=== PATIENT | male | born 1960 | race Caucasian/White ===

== ENCOUNTER 2017-08-06 10:16 | Emergency (ER) | payer MEDICARE ==
[~2017-08-06] VITALS: Ht 177.8 cm; Wt 131.5 kg
[~2017-08-06 10:16] MED LIST: ARIP10TA2 PO; CYCL10TA9 PO; OXYC-12 PO; SULF1TAB38 PO; TRAM50TA2 PO
--- OUTSIDE RECORDS SUMMARY | 2017-08-06 10:23 | XMS REPORT ---
Author Author ANH GTZ [facility] eClinicalWorks Address Unknown Phone Unavailable Care Team Providers Care Machine Operator Farmworker Name Role Phone ANH GTZ Unavailable Allergies No Known Allergies Problems Problem Type Condition Code Onset Dates Condition Status Problem Type 2 diabetes mellitus without complication, without long-term current use of insulin E11.9 Active Problem Essential hypertension I10 Active Problem Open wound, lower leg, left, initial encounter S81.802A Active Problem Bipolar disorder, current episode manic without psychotic features, moderate F31.12 Active Problem Other stimulant dependence, 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
--- OUTSIDE RECORDS SUMMARY | 2017-08-06 10:24 | XMS REPORT ---
Author Author KILEY Connelly Organization 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 Unknown Non Drug Allergy Feb, Unknown SOCIAL HISTORY No smoking Hx information available PLAN OF CARE Activity Details Follow Up prn Reason:te #31 VITAL SIGNS Height 71 in 2016-03-13 Blood pressure systolic 159 mmHg 2016-03-13 Blood pressure diastolic 86 mmHg 2016-03-13 MEDICATIONS Medication Instructions Dosage Frequency Start Date End Date Duration Status Amoxicillin 500 MG Orally 4 times a day 1 capsule 6h Feb, Feb, 7 days Active [place] 5-325 MG Orally every 6 hrs 1 tablet as needed 6h Feb, Feb, 4 days Active Latuda 40 MG Orally Once a day 1 tablet with food 24h Dec, Active Blood Glucose Test 1 subcutaneously 2 times a day as directed 12h Oct, 30 days Active Metformin HCl 1000 MG Orally Twice a day 1 tablet with meals 12h Sep, Active Lisinopril 20 mg Orally Once a day 1 tablet 24h 24 May, 2015 Active Hydrochlorothiazide 50 MG Orally Once a day 1 tablet 24h Active RESULTS No Results PROCEDURES Procedure Date Ordered Related Diagnosis Body Site LTD ORAL EVALUATION - PROBLEM FOCUS Mar 13, 2016 INTRAORL-PERIAPICAL 1 FILM [id number] Mar 13, 2016 Billing Notes on claim Mar 13, 2016 IMMUNIZATIONS No Known Immunizations
--- OUTSIDE RECORDS SUMMARY | 2017-08-06 10:24 | XMS REPORT ---
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 Active 608261485 Problem Venous insufficiency I87.2 Active 76681459 Problem Type 2 diabetes mellitus without complication, without long-term current use of insulin E11.9 Active 016662885 Problem Bipolar I disorder with depression F31.9 Active 53812885 Problem Methamphetamine use disorder, 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 646841585 Problem Open wound, lower leg, left, initial encounter S81.802A Active 322229357 Problem Essential hypertension I10 Active 86004560 Problem Mixed hyperlipidemia E78.2 Active 318373008 Problem Bipolar disorder, in partial remission, most recent episode depressed F31.75 Active 26401771 ALLERGIES No Information SOCIAL HISTORY Never Assessed PLAN OF CARE Activity Details Follow Up 4 Weeks Reason:depression VITAL SIGNS MEDICATIONS Unknown Medications RESULTS No Results PROCEDURES Procedure Date Ordered Result Body Site [facility] VISIT MENTAL HEALTH ESTAB PT June 12, 2016 Psychotherapy, patient &/family, 30 minutes, established patient June 12, 2016 IMMUNIZATIONS No Known Immunizations MEDICAL (GENERAL) HISTORY Type Description Date Medical History Bipolar disorder, current episode manic without psychotic features, moderate Medical History Essential hypertension, hypertension with unspecified goal Medical History diabetes Medical History hypercholesterolemia Surgical History Hernia repair 03/2014 Surgical History Oral Surgery 06/2014 Hospitalization History early 1999 he had inpatient stay at [facility] when he was experiencing SI
--- OUTSIDE RECORDS SUMMARY | 2017-08-06 10:24 | XMS REPORT ---
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
--- OUTSIDE RECORDS SUMMARY | 2017-08-06 10:24 | XMS REPORT ---
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 Active 415531947 Problem Type 2 diabetes mellitus without complication, without long-term current use of insulin E11.9 Active 802471448 Problem Amphetamine use disorder, 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 11535697 Problem PVD (peripheral vascular disease) I73.9 Active 919287520 Problem Mixed hyperlipidemia E78.2 Active 603699191 Problem Bipolar disorder, in partial remission, most recent episode depressed F31.75 Active 05135210 Problem Bipolar I disorder with depression F31.9 Active 72505609 Problem Methamphetamine use disorder, 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 804822715 ALLERGIES No Information ENCOUNTERS Encounter Location Date Diagnosis [place] [id number] [place] [address] 71128- 2811 July, [place] [address] [place] [id number] [place] [address] 72999- 0735 July, [place] [id number] [place] [address] 36632- 2704 May, Bipolar I disorder with depression F31.9 and Amphetamine use disorder, 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 [place] [id number] [place] [address] 87550- 9635 May, Bipolar I disorder with depression F31.9 and Amphetamine use disorder, 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 [place] [address] [place] [id number] [address] 9925 May, [place] [address] [place] [id number] [place] [address] 51577- 8820 May, BMI 40.0-44.9, adult Z68.41 ; Methamphetamine use disorder, 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 and Bipolar I disorder with depression F31.9 [place] [address] [place] [id number] [place] [address] 55674- 1225 Mar, [place] [address] [place] [id number] [place] [address] 15593- 5326 Mar, Methamphetamine use disorder, 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 and Bipolar I disorder with depression F31.9 [place] [address] [place] [id number] [place] [address] 30625- 6820 Mar, Methamphetamine use disorder, 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 ; Bipolar I disorder with depression F31.9 and BMI 40.0-44.9, adult Z68.41 [place] [id number] [place] [address] 97366- 3960 Mar, [facility] [address] [place] [id number] [place] [address] 55483 -2518 Feb, Cough R05 ; Other viral agents as the cause of diseases classified elsewhere B97.89 ; Acute upper respiratory infection, unspecified J06.9 and BMI 40.0-44.9, adult Z68.41 [place] [id number] [place] [address] 50177- 7800 Feb, [place] [id number] [place] [address] 44511- 4242 Feb, Methamphetamine use disorder, 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 and Bipolar I disorder with depression F31.9 [place] [address] [place] [id number] [place] [address] 71651- 1894 Feb, Methamphetamine use disorder, 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 ; Bipolar I disorder with depression F31.9 and BMI 40.0-44.9, adult Z68.41 [place] [address] [place] [id number] [place] [address] 51154- 8745 Feb, [place] [address] 30198- 9833 Jan, Type 2 diabetes mellitus without complication, without long- term current use of insulin E11.9 [facility] WALK [facility] [place] [address] 46958 -1288 Jan, BMI 40.0-44.9, adult Z68.41 and Open wound of left lower leg, subsequent encounter S81.802D [facility] WALK IN [address] [address] 16 Jan, 2017 Abrasion T14.8XXA ; Encounter for immunization Z23 and PVD (peripheral vascular disease) I73.[address] [address]84- 2578 15 Jan, 2017 [place] [address] 57230- 8756 Jan, [place] [address] 32262- 9577 07 Jan, 2017 Bipolar I disorder with depression F31.9 and Other stimulant dependence, 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 [place] [address] [place] [id number] [place] [address] 45383- 8101 2016 Type 2 diabetes mellitus without complication, without long- term current use of insulin E11.9 and Essential hypertension I10 [place] [address] [place] [id number] [place] [address] 59315- 9760 28 Nov, 2016 Methamphetamine use disorder, 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 and Bipolar I disorder with depression F31.9 [place] [address] 11516- 5586 26 Nov, 2016 Bipolar I disorder with depression F31.9 and Other stimulant dependence, 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 [facility]ALK IN [facility] [address] 24982 -1094 14 Nov, 2016 Bilateral impacted cerumen H61.23 [facility] [id number] [place] [address] 39923- 8343 12 Nov, 2016 Bipolar I disorder with depression F31.9 and Other stimulant dependence, 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 [facility] [id number] [place] [address] 67178- 1189 Nov, [facility] [address] [place] [id number] [place] [address] 33444- 7182 Nov, [facility] [id number] [place] [address] 22736- 2111 Oct, Bipolar I disorder with depression F31.9 and Adderall use disorder, moderate, dependence F15.20 [facility] [address] [place] [id number] [place] [address] 45180- 5397 Oct, Bipolar I disorder with depression F31.9 and Methamphetamine use disorder, 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 [facility] [address] [place] [id number] [place] [address] 30201- 8960 Oct, [facility] [address] [place] [id number] [place] [address] 76002- 1126 Sep, [facility] [id number] [place] [address] 75757- 8059 Sep, Bipolar I disorder with depression F31.9 [facility] [id number] [place] [address] 89764- 9921 Sep, Bipolar I disorder with depression F31.9 and Methamphetamine use disorder, 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 [facility] [address] [place] [id number] [address]- 1337 Sep, Bipolar I disorder with depression F31.9 and Other stimulant dependence, 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 [facility] [id number] [place] [address] 68691- 0978 Sep, [facility] [address] [place] [id number] [place] [address] 99868- 8303 Sep, [facility] [id number] [place] [address] 66023- 4975 Sep, Tick bite, initial encounter W57.XXXA [facility] [address] [place] [id number] [place] [address] 03368- 2454 Aug, [facility] [address] [place] [id number] [place] [address] 38251- 2603 Aug, [facility] [address] 46436- 3280 Aug, Bipolar I disorder with depression F31.9 and Other stimulant dependence, 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 [facility] [address] [place] [address] Aug, [facility] [address] 91304- 7803 Aug, [facility] [address] [place] [address] Aug, [facility] [address] [place] [id number] [place] [address] 35878- 4317 Aug, [place] [address] [place] [id number] [place] [address] 57865- 3226 Aug, Elevated glucose R73.09 ; Type 2 diabetes mellitus without complication, without long-term current use of insulin E11.9 ; Periumbilical abdominal pain R10.33 and Mixed hyperlipidemia E78.2 [facility] [address] [place] [id number] [place] [address] 02196 -5121 Aug, Periumbilical abdominal pain R10.33 and Tick bite, initial encounter W57.XXXA [place] [address] 18628- 5264 Aug, Bipolar I disorder with depression F31.9 [facility] [address] [place] [id number] [place] [address] 22018- 9747 July, Bipolar I disorder with depression F31.9 and Other stimulant dependence, 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 [place] [address] [place] [id number] [address]- 6209 July, [facility] [address] [place] [address] July, [facility] [address] [address]- 7647 July, [facility] [address] [address]- 3270 Jun, Bipolar I disorder with depression F31.9 [facility] [address] [address]- 1311 Jun, Elevated glucose R73.09 and Other nursing home (current) drug therapy Z79.899 [facility] [address] [address]- 4246 Jun, Bipolar I disorder with depression F31.9 and Other long term care pharmacist (current) drug therapy Z79.899 [facility] [address] [address]- 7591 Jun, [facility] [address] [address]- 7114 Jun, Bipolar disorder, in partial remission, most recent episode depressed F31.75 and Other stimulant dependence, 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 [facility] [place] [id number] [address] Jun [facility] [address] [place] [id number] [address] May, Other viral agents as the cause of diseases classified elsewhere B97.89 and Acute upper respiratory infection, unspecified J06.9 [facility] [address] [place] [id number] [address]- 9519 May, Bipolar disorder, in partial remission, most recent episode depressed F31.75 and Other stimulant dependence, 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 [facility] [address] [place] [id number] [address]- 8880 May, Bipolar 1 disorder, mixed, full remission F31.78 and Methamphetamine abuse in remission F15.10 [place] [address] [address]- 8434 Feb, Bipolar affective disorder, remission status unspecified F31.9 [facility] [place][note 2] JEFFREY URBINA [id number] [place] [address] Feb [place] [id number] [place] [address] 38523- 8460 Feb, Dental examination Z01.20 [place] [id number] [place] [address] 96778- 0360 16 Jan, 2016 Bipolar 1 disorder, depressed, partial remission F31.75 [place] [id number] [place] [address] 80353- 8289 12 Dec, 2015 Bipolar 1 disorder, mixed, full remission F31.78 and Other long term care pharmacist (current) drug therapy Z79.899 [place] [id number] [place] [address] 74443- 3986 Dec, Bipolar 1 disorder, mixed, full remission F31.78 and Other nursing home (current) drug therapy Z79.899 [place] [id number] [place] [address] 61881- 6615 Oct, [place] [id number] [place] [address] 46707- 2273 Oct, Type 2 diabetes mellitus without complication, without long- term current use of insulin E11.9 ; Bipolar disorder, current episode manic without psychotic features, moderate F31.12 ; Essential hypertension I10 ; Venous insufficiency I87.2 and Open wound, lower leg, left, initial encounter S81.802A [place] [id number] [place] [address] 02771- 5780 Oct, [place] [id number] [place] [address] 61176- 4509 Oct, Bipolar affective disorder, remission status unspecified F31.9 [place] [id number] [place] [address] 33437- 3985 Oct, [facility] [address] [place] [id number] [place] [address] 32973- 7541 Sep, [facility] [address] [place] [id number] [place] [address] 76997- 5724 Sep, [place] [address] [place] [id number] [place] [address] 11723- 8432 Sep, Type 2 diabetes mellitus without complication, without long- term current use of insulin E11.9 ; Essential hypertension I10 and Venous insufficiency I87.2 [facility] [place] [address] [place] [id number] [place] [address] 93823 -0527 Sep, Cellulitis of lower extremity, unspecified laterality L03.119 and Peripheral vascular disease of lower extremity I73.9 [place] [address] [place] [id number] [place] [address] 85020- 5890 Aug, [place] [address] [place] [id number] [place] [address] 77323- 5432 Aug, Bipolar affective disorder, remission status unspecified F31.9 [facility] [place] [address] [place] [id number] [place] [address] 51332 -6988 July, Cellulitis, unspecified cellulitis site L03.90 [place] [address] [place] [id number] [place] [address] 06095- 7781 Jun, Bipolar disorder, current episode manic without psychotic features, moderate F31.12 and Other stimulant dependence, 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 [place] [address] [place] [id number] [place] [address] 47782- 0178 Jun, Essential hypertension, hypertension with unspecified goal I10 and Knee pain M25.569 [place] [address] [place] [id number] [place] [address] 03351- 8706 May, [place] [address] [place] [id number] [place] [address] 86173- 6168 May, Bipolar disorder, current episode manic without psychotic features, moderate F31.12 and Essential hypertension, hypertension with unspecified goal I10 [facility] [address] [place] [id number] [place] [address] 01090- 0216 May, Bipolar disorder, current episode manic without psychotic features, moderate F31.12 and Other stimulant dependence, 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 [facility] [address] [place] [id number] [place] [address] 69931- 9370 Dec, [facility] [address] [place] [id number] [place] [address] 97630- 4200 Dec, Bipolar 1 disorder, mixed, full remission F31.78 [facility] [address] [place] [id number] [place] [address] 01889- 5113 Jun, [facility] [address] [place] [id number] [place] [address] 89995- 1692 Jun, [facility] [address] [place] [id number] [place] [address] 62114- 3892 May, [facility] [address] [place] [id number] [place] [address] 56332- 9058 May, [facility] [address] [place] [id number] [place] [address] 13597- 7676 May, [facility] [address] [place] [id number] [place] [address] 50189- 7049 May, [facility] [address] [place] [id number] [place] [address] 01873- 0316 May, [facility] [address] [place] [id number] [place] [address] 05778- 6180 May, [facility] [address] [place] [id number] [place] [address] 10762- 8960 Mar, [facility] [address] [place] [id number] [place] [address] 69562- 1682 Mar, [facility] [address] [place] [id number] [place] [address] 54296- 1176 Feb, [facility] [place] [facility] [address] [id number] [place] [address]- 7610 Jan, [facility] [place] [facility] [address] [id number] [place] [address]- 4426 Jan, [facility] [place] [facility] [address] [id number] [place] [address]- 1060 Jan, [facility] [place] [facility] [address] [id number] [place] [address]- 2031 Jan, [facility] [place] [facility] [address] [id number] [place] [address]- 9202 Nov, [facility] [place] [facility] [address] [id number] [place] [address]- 2583 Nov, [facility] [place] [facility] [address] [id number] [place] [address]- 8786 Oct, [facility] [place] [facility] [address] [id number] [place] [address]- 3246 Oct, [facility] [place] [facility] [address] [id number] [place] [address]- 7868 Sep, [facility] [place] [facility] [address] [id number] [place] [address]- 3315 Sep, [facility] [place] [facility] [address] [id number] [place] [address]- 6937 Sep, [facility] [place] [facility] [address] [id number] [place] [address]- 2196 Sep, [facility] [place] [facility] [address] [id number] [place] [address]- 2279 July, [facility] [place] [facility] [address] [id number] [place] [address]- 6211 July, [facility] [place] [facility] [address] [id number] [place] [address]- 3974 July, [facility] [place] [facility] [address] [id number] [place] [address]- 8008 July, [facility] [place] [facility] [address] [id number] [place] [address]- 6497 July, [facility] [place] [facility] [address] [id number] [place] [address]- 6933 July, [facility] [place] [facility] [address] [id number] [place] [address]- 4074 July, [facility] [place] [facility] [address] [id number] [place] [address]- 7041 July, [facility] [place] [facility] [address] [id number] [place] [address]- 1845 Jun, [facility] [place] [facility] [address] [id number] [place] [address]- 7769 Jun, [facility] [place] [facility] [address] [id number] [place] [address]- 2923 Jun, [facility] [place] [facility] [address] [id number] [place] [address]- 5249 Jun, [facility] [place] [facility] [address] [id number] [place] [address]- 0002 May, [facility] [place] [facility] [address] [id number] [place] [address]- 8700 May, [facility] [place] [facility] [address] [id number] [place] [address]- 9345 May, [facility] [place] [facility] [address] [id number] [place] [address]- 8884 May, [facility] [place] [facility] [address] [id number] [place] [address]- 1103 May, [facility] [place] [facility] [address] [id number] [place] [address]- 9699 May, [facility] [place] [facility] [address] [id number] [place] [address]- 5972 May, [facility] [address] [id number] [place] [address]- 9643 May, [facility] [place] [facility] [address] [id number] [place] 4616 May, [facility] [place] [facility] [address] [id number] [place] [address]- 5066 May, [facility] [place] [facility] [address] [id number] [place] [address]- 3078 May, [facility] [place] [facility] [address] [id number] [place] [address]- 8567 Mar, [facility] [place] [facility] [address] [id number] [place] [address]- 1658 Mar, [facility] [address] [id number] [place] [address]- 8097 Mar, [facility] [place] [facility] [address] [id number] [place] [address]- 6117 Mar, [facility] [place] [facility] [address] [id number] [place] [address]- 6627 Feb, [facility] [place] [facility] [address] [id number] [place] [address]- 8022 Feb, [facility] [place] [facility] [address] [id number] [place] [address]- 7352 Feb, [facility] [place] [facility] [address] [id number] [place] [address]- 0019 Feb, [facility] [place] [facility] [address] [id number] [place] [address]- 1933 Jan, [facility] [place] [facility] [address] [id number] [place] [address]- 0563 Jan, [facility] [place] [facility] [address] [id number] [place] [address]- 9143 Jan, [facility] [place] [facility] [id number] [address]- 8398 Jan, [facility] [id number] [address]- 2398 Mar, [facility] [address] [address]- 8826 Mar, [facility] [id number] [address]- 0744 Feb, [facility] [address] [address]- 6085 Jan, [facility] [address] [address]- 9000 Dec, [facility] [address] [address]- 4366 Nov, [facility] [address] [address]- 3908 Oct, [facility] [id number] [address]- 5973 Sep, [facility] [id number] [address] Feb, IMMUNIZATIONS No Known Immunizations SOCIAL HISTORY Never Assessed REASON FOR VISIT Requests return call PLAN OF CARE VITAL SIGNS MEDICATIONS Unknown Medications RESULTS No Results PROCEDURES No Known procedures INSTRUCTIONS MEDICATIONS ADMINISTERED No Known Medications MEDICAL (GENERAL) HISTORY Type Description Date Medical History Bipolar disorder, current episode manic without psychotic features, moderate Medical History Essential hypertension, hypertension with unspecified goal Medical History diabetes Medical History hypercholesterolemia Surgical History Hernia repair 03/2014 Surgical History Oral Surgery 06/2014 Hospitalization History early 1999 he had inpatient stay at [facility] when he was experiencing SI
--- OUTSIDE RECORDS SUMMARY | 2017-08-06 10:25 | XMS REPORT ---
Author Author CHIARA RODRIGUEZ [facility] eClinicalWorks Address Unknown Phone Unavailable Care Team Providers Care Vermin Exterminator Name Role Phone CHIARA RODRIGUEZ CP Unavailable [...]
--- OUTSIDE RECORDS SUMMARY | 2017-08-06 10:25 | XMS REPORT ---
Author Author RAUL GIL [facility] eClinicalWorks Address Unknown Phone Unavailable Care Team Providers Care Swing Type Lathe Operator Name Role Phone RAUL GIL CP Unavailable Allergies, Adverse Reactions, Alerts Substance Reaction Event Type N.K.D.A. Info Not Available Non Drug Allergy Problems Problem Type Condition Code Onset Dates Condition Status Problem Bipolar affective disorder, remission status unspecified F31.9 Active Problem Essential hypertension, hypertension with unspecified goal I10 Active Problem Peripheral vascular disease of lower extremity I73.9 Active Assessment Cellulitis of lower extremity, unspecified laterality L03.119 Active Assessment Peripheral vascular disease of lower extremity I73.9 Active Problem Bipolar disorder, current episode manic without psychotic features, moderate F31.12 Active Problem Other stimulant dependence, 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 Active Medications Medication Code System Code Instructions Start Date End Date Status Dosage Keflex [facility] [address]-01 500 MG Orally every 6 hrs October 12, 2015 October 22, 2015 1 capsule Latuda [facility] [address]-55 40 MG Orally Once a day Dec 29, 2014 1 tablet with food Procedures Procedure Coding System Code Date Office Visit, Est Pt., Level 3 CPT-4 70347 October 12, 2015 [facility] VISIT ESTABLISHED PATIENT CPT-4 G0467 October 12, 2015 Vital Signs Date/Time: October 12, 2015 Cardiac Monitoring Heart Rate 72 bpm Weight 310.6 lbs Height 71 in Blood Pressure Diastolic 78 mmHg Blood Pressure Systolic 140 mmHg Results No Known Results Summary Purpose eClinicalWorks Submission
--- OUTSIDE RECORDS SUMMARY | 2017-08-06 10:25 | XMS REPORT ---
Author Author CHIARA RODRIGUEZ [facility] [place] eClinicalWorks Address Unknown Phone Unavailable Care Team Providers Care Foster Care Case Manager Name Role Phone CHIARA RODRIGUEZ CP Unavailable [...] without psychotic features, moderate F31.12 Active Medications Medication Code System Code Instructions Start Date End Date Status Dosage Latuda [facility] [address]-20 40 MG Orally Once a day Dec 29, 2014 1 tablet with food Results No Known Results Summary Purpose eClinicalWorks Submission
--- OUTSIDE RECORDS SUMMARY | 2017-08-06 10:25 | XMS REPORT ---
Author Author CHIARA RODRIGEUZ [facility] eClinicalWorks Address Unknown Phone Unavailable Care Team Providers Care Stockroom Keeper Name Role Phone CHIARA RODRIGUEZ CP Unavailable Allergies, Adverse Reactions, Alerts Substance Reaction Event Type N.K.D.A. 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 Active Assessment Type 2 diabetes mellitus without complication, without long-term current use of insulin E11.9 Active Problem Bipolar affective disorder, remission status unspecified F31.9 Active Problem Bipolar disorder, current episode manic without psychotic features, moderate F31.12 Active Medications Medication Code System Code Instructions Start Date End Date Status Dosage Lisinopril [facility] [address]-80 20 mg Orally Once a day June 22, 2015 1 tablet Abilify [facility] [address]-44 15 MG Orally Once a day 1 tablet Metformin HCl [facility] [address]-33 1000 MG Orally Twice a day October 20, 2015 1 tablet with meals Keflex [facility] [address]-26 500 MG Orally every 6 hrs October 12, 2015 October 22, 2015 1 capsule Latuda [facility] [address]-11 40 MG Orally Once a day Dec 29, 2014 1 tablet with food Hydrochlorothiazide [facility] [address]-07 50 MG Orally Once a day 1 tablet Procedures Procedure Coding System Code Date [facility] VISIT ESTABLISHED PATIENT CPT-4 G0467 October 20, 2015 Office Visit, Est Pt., Level 4 CPT-4 31611 October 20, 2015 GLYCATED HEMOGLOBIN TEST CPT-4 34300 October 20, 2015 Vital Signs Date/Time: October 20, 2015 Cardiac Monitoring Heart Rate 109 bpm Weight 309.2 lbs Height 71 in Blood Pressure Diastolic 90 mmHg Blood Pressure Systolic 190 mmHg Results No Known Results Summary Purpose eClinicalWorks Submission
--- OUTSIDE RECORDS SUMMARY | 2017-08-06 10:25 | XMS REPORT ---
Author Author APOLLO SANTIAGO Organization eClinicalWorks Address Unknown Phone Unavailable Care Team Providers Care Business Excellence Manager Name Role Phone APOLLO SANTIAGO CP Unavailable Allergies, Adverse Reactions, Alerts Substance Reaction Event Type N.K.D.A. Info Not Available Non Drug Allergy Problems Problem Type Condition Code Onset Dates Condition Status Assessment Bipolar 1 disorder, mixed, full remission F31.78 Active Assessment Other [facility] (current) drug therapy Z79.899 Active Problem Type 2 diabetes mellitus without [...] Start Date End Date Status Dosage Lisinopril [facility] [address]-84 20 mg Orally Once a day June 22, 2015 1 tablet Metformin HCl [facility] [address]-59 1000 MG Orally Twice a day October 20, 2015 1 tablet with meals Blood Glucose Test [facility] 0 1 subcutaneously 2 times a day Nov 15, 2015 as directed Hydrochlorothiazide [facility] [address]-41 50 MG Orally Once a day 1 tablet Latuda [facility] [address]-84 40 MG Orally Once a day Dec 29, 2014 1 tablet with food Procedures Procedure Coding System Code Date Office Visit, Est Pt., Level 3 CPT-4 80474 Jan 09, 2016 [facility] VISIT ESTABLISHED PATIENT CPT-4 G0467 Jan 09, 2016 Vital Signs Date/Time: Jan 09, 2016 Cardiac Monitoring Heart Rate 100 bpm Weight 300.8 lbs Height 71 in BMI 41.95 Index Blood Pressure Diastolic 80 mmHg Blood Pressure Systolic 160 mmHg Results No Known Results Summary Purpose eClinicalWorks Submission
--- OUTSIDE RECORDS SUMMARY | 2017-08-06 10:25 | XMS REPORT ---
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 Active 919858893 Problem Type 2 diabetes mellitus without complication, without long-term current use of insulin E11.9 Active 315355447 Problem Amphetamine use disorder, 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 06115287 Problem PVD (peripheral vascular disease) I73.9 Active 958634458 Problem Mixed hyperlipidemia E78.2 Active 755794370 Problem Bipolar disorder, in partial remission, most recent episode depressed F31.75 Active 96437498 Problem Bipolar I disorder with depression F31.9 Active 61047905 Problem Methamphetamine use disorder, 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 773362110 ALLERGIES No Known Allergies ENCOUNTERS Encounter Location Date Diagnosis [facility] [id number] [place] [address] 10240- 3592 July, [facility] [id number] [place] [address] 10297- 0518 July, Bipolar I disorder with depression F31.9 and Amphetamine use disorder, 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 [facility] [id number] [place] [address] 83247 -3559 July, [facility] [id number] [place] [address] 31565 -3018 Jun, Seasonal allergic rhinitis, unspecified trigger J30.2 and BMI 40.0-44.9, adult Z68.41 [place] [address] [place] [address] 77636- 2780 May, Bipolar I disorder with depression F31.9 and Amphetamine use disorder, 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 [place] [id number] [place] [address] 86671- 3070 May, Bipolar I disorder with depression F31.9 and Amphetamine use disorder, 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 [place] [id number] [place] [address] 23663- 6635 May, [place] [id number] [place] [address] 10850- 0167 14 May, 2017 BMI 40.0-44.9, adult Z68.41 ; Methamphetamine use disorder, 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 and Bipolar I disorder with depression F31.9 [place] [id number] [place] [address] 53736- 7934 Mar, [place] [id number] [place] [address] 41647- 9974 Mar, Methamphetamine use disorder, 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 and Bipolar I disorder with depression F31.9 [place] [id number] [place] [address] 08456- 0682 Mar, Methamphetamine use disorder, 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 ; Bipolar I disorder with depression F31.9 and BMI 40.0-44.9, adult Z68.41 [place] [id number] [place] [address] 13463- 2354 Mar, [facility] [address] [place] [address] 57546 -3459 Feb, Cough R05 ; Other viral agents as the cause of diseases classified elsewhere B97.89 ; Acute upper respiratory infection, unspecified J06.9 and BMI 40.0-44.9, adult Z68.41 [place] [address] [place] [address] 20025- 0546 Feb, [place] [id number] [place] [address] 88476- 7587 14 Feb, 2017 Methamphetamine use disorder, 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 and Bipolar I disorder with depression F31.9 [place] [address] [place] 0[address]17- 1012 14 Feb, 2017 Methamphetamine use disorder, 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 ; Bipolar I disorder with depression F31.9 and BMI 40.0-44.9, adult Z68.41 [place] [address] 05408- 8573 Feb, [address] 075152- 0078 Jan, Type 2 diabetes mellitus without complication, without long- term current use of insulin E11.9 [facility] [address] [address]0231 Jan, BMI 40.0-44.9, adult Z68.41 and Open wound of left lower leg, subsequent encounter S81.802D [facility] [address] 0[address] -1221 16 Jan, 2017 Abrasion T14.8XXA ; Encounter for immunization Z23 and PVD (peripheral vascular disease) I73.[address] 53078- 5508 15 Jan, [address] 88065- 1740 Jan, [address] 19925- 7526 Jan, Bipolar I disorder with depression F31.9 and Other stimulant dependence, 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 87691- 4785 2016 Type 2 diabetes mellitus without complication, without long- term current use of insulin E11.9 and Essential hypertension I10 [address] [place] [address]- 7673 Nov, Methamphetamine use disorder, 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 and Bipolar I disorder with depression F31.9 [facility] [id number] [place] [address] 86255- 0992 Nov, Bipolar I disorder with depression F31.9 and Other stimulant dependence, 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 [facility] [id number] [place] [address] 83472 -2684 14 Nov, 2016 Bilateral impacted cerumen H61.23 [facility] [id number] [place] [address] 80664- 7275 12 Nov, 2016 Bipolar I disorder with depression F31.9 and Other stimulant dependence, 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 [facility] [id number] [place] [address] 19994- 9090 Nov, [facility] [id number] [place] [address] 46043- 2066 Nov, [facility] [id number] [place] [address] 01669- 8595 Oct, Bipolar I disorder with depression F31.9 and Adderall use disorder, moderate, dependence F15.20 [facility] [address] [place] [address] 24882- 2913 Oct, Bipolar I disorder with depression F31.9 and Methamphetamine use disorder, 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 [facility] [id number] [place] [address] 32233- 3089 Oct, [facility] [id number] [place] [address] 12487- 0887 Sep, [facility] [id number] [place] [address] 77194- 6075 Sep, Bipolar I disorder with depression F31.9 [facility] [address] [place] [address] 10951- 4154 Sep, Bipolar I disorder with depression F31.9 and Methamphetamine use disorder, 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 [facility] [id number] [place] [address] 22217- 9358 Sep, Bipolar I disorder with depression F31.9 and Other stimulant dependence, 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 [facility] [id number] [place] [address] 36625- 7923 Sep, [facility] [address] 05202- 6355 Sep, [facility] [id number] [place] [address] 66618- 6150 Sep, Tick bite, initial encounter W57.XXXA [place] [address] 95814- 2277 Aug, [place] [address] 50685- 5800 Aug, [facility] [address] 14604- 8459 Aug, Bipolar I disorder with depression F31.9 and Other stimulant dependence, 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 [facility] [address] [place] [address] Aug, [facility] [id number] [place] [address] 85892- 1614 Aug, [facility] [address] [place] [address] Aug, [facility] [id number] [place] [address] 70244- 1771 Aug, [facility] [id number] [place] [address] 55330- 0383 Aug, Elevated glucose R73.09 ; Type 2 diabetes mellitus without complication, without long-term current use of insulin E11.9 ; Periumbilical abdominal pain R10.33 and Mixed hyperlipidemia E78.2 [facility] [id number] [place] [address] 00498 -4697 08 Fantasma, 2017 Periumbilical abdominal pain R10.33 and Tick bite, initial encounter W57.XXXA [facility] [address] [address]- 4753 Aug, Bipolar I disorder with depression F31.9 [facility] [address] [address]- 1517 July, Bipolar I disorder with depression F31.9 and Other stimulant dependence, 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 [facility] [address] [place] [address] 26023- 7521 July, [facility] [address] [place] [address] July, [facility] [id number] [place] [address] 83409- 0370 July, [facility] [id number] [place] [address] 21391- 3732 Jun, Bipolar I disorder with depression F31.9 [facility] [address] [address]- 9508 Jun, Elevated glucose R73.09 and Other terminal make up operator (current) drug therapy Z79.899 [facility] [address] [place] [address] 47343- 3842 Jun, Bipolar I disorder with depression F31.9 and Other terminal make up operator (current) drug therapy Z79.899 [facility] [address] [address]- 7055 Jun, [facility] [address] [address]- 4121 Jun, Bipolar disorder, in partial remission, most recent episode depressed F31.75 and Other stimulant dependence, 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 [facility] [address] [id number] [place] [address] Jun [facility] [address] [address] -7[address] May, Other viral agents as the cause of diseases classified elsewhere B97.89 and Acute upper respiratory infection, unspecified J06.9 [place] [address] [address]- 7219 15 May, 2016 Bipolar disorder, in partial remission, most recent episode depressed F31.75 and Other stimulant dependence, 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 [place] [address] [address]- 9236 02 May, 2016 Bipolar 1 disorder, mixed, full remission F31.78 and Methamphetamine abuse in remission F15.10 [place] [address] [address]- 1119 Feb, Bipolar affective disorder, remission status unspecified F31.9 [place] [address] [id number] [place] [address] 14 Feb [place] [address] [address]- 9734 14 Feb, 2016 Dental examination Z01.20 [place] [address] [address]- 1587 16 Jan, 2016 Bipolar 1 disorder, depressed, partial remission F31.75 [place] [address] [place] [address] 84427- 9067 12 Dec, 2015 Bipolar 1 disorder, mixed, full remission F31.78 and Other fpc (current) drug therapy Z79.899 [place] [address] [address]- 4078 Dec, Bipolar 1 disorder, mixed, full remission F31.78 and Other fpc (current) drug therapy Z79.899 [place] [address] [address]- 1882 Oct, [place] [address] [place] [address] 42155- 2731 Oct, Type 2 diabetes mellitus without complication, without long- term current use of insulin E11.9 ; Bipolar disorder, current episode manic without psychotic features, moderate F31.12 ; Essential hypertension I10 ; Venous insufficiency I87.2 and Open wound, lower leg, left, initial encounter S81.802A [place] [id number] [place] [address] 63825- 3848 Oct, [place] [id number] [place] [address] 63822- 0475 Oct, Bipolar affective disorder, remission status unspecified F31.9 [place] [id number] [place] [address] 87992- 6608 Oct, [place] [id number] [place] [address] 99547- 6741 Sep, [place] [id number] [place] [address] 07907- 6226 Sep, [place] [id number] [place] [address] 10687- 7299 Sep, Type 2 diabetes mellitus without complication, without long- term current use of insulin E11.9 ; Essential hypertension I10 and Venous insufficiency I87.2 [facility] [id number] [place] [address] 28983 -8286 Sep, Cellulitis of lower extremity, unspecified laterality L03.119 and Peripheral vascular disease of lower extremity I73.9 [place] [id number] [place] [address] 98393- 6631 Aug, [place] [id number] [place] [address] 69547- 2516 Aug, Bipolar affective disorder, remission status unspecified F31.9 [facility] [id number] [place] [address] 16653 -3697 July, Cellulitis, unspecified cellulitis site L03.90 [place] [id number] [place] [address] 07709- 4949 Jun, Bipolar disorder, current episode manic without psychotic features, moderate F31.12 and Other stimulant dependence, 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 [facility] [address] [address]- 0834 12 Jun, 2015 Essential hypertension, hypertension with unspecified goal I10 and Knee pain M25.569 [facility] [id number] [place] [address] 49693- 2114 May, [facility] [id number] [place] [address] 57125- 7173 May, Bipolar disorder, current episode manic without psychotic features, moderate F31.12 and Essential hypertension, hypertension with unspecified goal I10 [facility] [id number] [place] [address] 58950- 8943 May, Bipolar disorder, current episode manic without psychotic features, moderate F31.12 and Other stimulant dependence, 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 [facility] [id number] [place] [address] 33866- 9796 Dec, [facility] [id number] [place] [address] 70658- 6736 Dec, Bipolar 1 disorder, mixed, full remission F31.78 [facility] [id number] [place] [address] 65198- 8113 Jun, [facility] [address] [place] [address] 69342- 8683 Jun, [facility] [address] [place] [address] 29140- 6612 May, [facility] [id number] [place] [address] 84419- 5118 May, [facility] [id number] [place] [address] 25740- 2226 May, [facility] [id number] [place] [address] 09352- 0547 May, [facility] [address] [place] [address] 89826- 4476 May, [facility] [place] [facility] [address] [id number] [place] [address]- 1698 May, [facility] [place] [facility] [address] [id number] [place] [address]- 4852 Mar, [facility] [place] [facility] [address] [id number] [place] 3838 Mar, [facility] [place] [facility] [address] [id number] [place] [address]- 1400 Feb, [facility] [place] [facility] [address] [id number] [place] [address]- 1874 Jan, [facility] [place] [facility] [address] [id number] [place] [address]- 4180 Jan, [facility] [place] [facility] [address] [id number] [place] [address]- 9167 Jan, [facility] [place] [facility] [address] [id number] [place] [address]- 4353 Jan, [facility] [place] [facility] [address] [id number] [place] [address]- 7733 Nov, [facility] [place] [facility] [address] [id number] [place] [address]- 8735 Nov, [facility] [place] [facility] [address] [id number] [place] [address]- 2274 Oct, [facility] [place] [facility] [address] [id number] [place] [address]- 2392 Oct, [facility] [place] [facility] [address] [id number] [place] [address]- 5208 Sep, [facility] [place] [facility] [address] [id number] [place] [address]- 2737 Sep, [facility] [place] [facility] [address] [id number] [place] [address]- 0188 Sep, [facility] [place] [facility] [address] [id number] [place] [address]- 6649 Sep, [facility] [place] [facility] [address] [id number] [place] [address]- 7869 July, [facility] [place] [facility] [address] [id number] [place] [address]- 4110 July, [facility] [place] [facility] [address] [id number] [place] [address]- 7619 July, [facility] [place] [facility] [address] [id number] [place] [address]- 0575 July, [facility] [place] [facility] [address] [id number] [place] [address]- 6388 July, [facility] [place] [facility] [address] [id number] [place] [address]- 4163 July, [facility] [place] [facility] [address] [id number] [place] [address]- 1216 July, [facility] [place] [facility] [address] [id number] [place] [address]- 6529 July, [facility] [place] [facility] [address] [id number] [place] [address]- 6425 Jun, [facility] [place] [facility] [address] [id number] [place] [address]- 1784 Jun, [facility] [place] [facility] [address] [id number] [place] [address]- 1882 Jun, [facility] [place] [facility] [address] [id number] [place] [address]- 7768 Jun, [facility] [place] [facility] [address] [id number] [place] [address]- 6067 May, [facility] [place] [facility] [address] [id number] [place] [address]- 1357 May, [facility] [place] [facility] [address] [id number] [place] [address]- 9074 May, [facility] [place] [facility] [address] [id number] [place] [address]- 8729 May, [facility] [place] [facility] [address] [id number] [place] [address]- 6626 May, [facility] [place] [facility] [address] [id number] [place] [address]- 2796 May, [facility] [place] [facility] [address] [id number] [place] [address]- 9846 May, [facility] [place] [facility] [address] [id number] [place] [address]- 3506 May, [facility] [place] [facility] [address] [id number] [place] [address]- 8966 May, [facility] [place] [facility] [address] [id number] [place] [address]- 8903 May, [facility] [place] [facility] [address] [id number] [place] [address]- 1167 May, [facility] [place] [facility] [address] [id number] [place] [address]- 6945 Mar, [facility] [place] [facility] [address] [facility] [id number] [place] [address]- 2180 Mar, [facility] [place] [facility] [address] [id number] [place] [address]- 8771 Mar, [facility] [place] [facility] [address] [id number] [place] [address]- 7067 Mar, [facility] [place] [facility] [address] [id number] [place] [address]- 8789 Feb, [facility] [place] [facility] [address] [id number] [place] [address]- 2296 Feb, [facility] [place] [facility] [address] [id number] [place] [address]- 5513 Feb, [facility] [place] [facility] [id number] [place] [address] 37742- 2546 Feb, [facility] [address] [address]- 5553 Jan, [facility] [address] 3033 Jan, [facility] [address] [address]- 2163 Jan, [facility] [address] 7521 Jan, [facility] [address] 0183 Mar, [facility] [address] [id number] [place] [address] 260849- 6876 Mar, [facility] [address] 8199 Feb, [facility] [address] [address]- 1189 Jan, [facility] [address] 0331 Dec, [facility] [address] [address]- 1652 Nov, [facility] [address] [address]- 4469 Oct, [facility] [address] [address]- 1467 Sep, [facility] [id number] 4538 Feb, IMMUNIZATIONS No Known Immunizations SOCIAL HISTORY Never Assessed REASON FOR VISIT Dizziness, lightheaded started Friday- has to lay down at times, can hardly drive, left eye vision is tingling [employer] PLAN OF CARE Activity Details Follow Up prn Reason: VITAL SIGNS Height 71 in 2016-12-12 Weight 293.4 lbs 2016-12-12 Temperature 97.5 degrees Fahrenheit 2016-12-12 Heart Rate 100 bpm 2016-12-12 Respiratory Rate 22 2016-12-12 BMI 40.92 kg/m2 2016-12-12 Blood pressure systolic 160 mmHg 2016-12-12 Blood pressure diastolic 94 mmHg 2016-12-12 MEDICATIONS Medication Instructions Dosage Frequency Start Date End Date Duration Status Glucocard Expression Test - DX E11.9 2 times a day- 3 times weekly. test blood sugar Aug, Active Lipitor 40 MG Orally Once a day 1 tablet 24h Aug, 30 day(s) Active Glucocard Expression Monitor w/Device as directed Aug, Active Metformin HCl 1000 MG Orally Twice a day, pc 1 tablet with meals Aug, 30 day(s) Active Latuda 80 MG Orally daily at suppertime 1 tablet with food Active RESULTS No Results PROCEDURES Procedure Date Ordered Result Body Site EAR LAVAGE 2016-12-12 N/A [facility] VISIT ESTABLISHED PATIENT Dec 12, 2016 INSTRUCTIONS MEDICATIONS ADMINISTERED No Known Medications MEDICAL (GENERAL) HISTORY Type Description Date Medical History Bipolar disorder, current episode manic without psychotic features, moderate Medical History Essential hypertension, hypertension with unspecified goal Medical History diabetes Medical History hypercholesterolemia Surgical History Hernia repair 03/2014 Surgical History Oral Surgery 06/2014 Hospitalization History early 1999 he had inpatient stay at [facility] when he was experiencing SI
--- OUTSIDE RECORDS SUMMARY | 2017-08-06 10:25 | XMS REPORT ---
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
--- OUTSIDE RECORDS SUMMARY | 2017-08-06 10:26 | XMS REPORT ---
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 Active 495231105 Problem Venous insufficiency I87.2 Active 15926522 Problem Type 2 diabetes mellitus without complication, without long-term current use of insulin E11.9 Active 853709013 Problem Bipolar I disorder with depression F31.9 Active 54522635 Problem Methamphetamine use disorder, 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 100197057 Problem Open wound, lower leg, left, initial encounter S81.802A Active 042893035 Problem Essential hypertension I10 Active 08691534 Problem Mixed hyperlipidemia E78.2 Active 715735655 Problem Bipolar disorder, in partial remission, most recent episode depressed F31.75 Active 01600329 ALLERGIES No Information SOCIAL HISTORY Never Assessed PLAN OF CARE VITAL SIGNS MEDICATIONS Unknown Medications RESULTS No Results PROCEDURES Procedure Date Ordered Result Body Site Alcohol and/or drug services July 30, 2016 IMMUNIZATIONS No Known Immunizations MEDICAL (GENERAL) HISTORY Type Description Date Medical History Bipolar disorder, current episode manic without psychotic features, moderate Medical History Essential hypertension, hypertension with unspecified goal Medical History diabetes Medical History hypercholesterolemia Surgical History Hernia repair 03/2014 Surgical History Oral Surgery 06/2014 Hospitalization History early 1999 he had inpatient stay at [facility] when he was experiencing SI
--- OUTSIDE RECORDS SUMMARY | 2017-08-06 10:26 | XMS REPORT ---
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 Active 580812524 Problem Type 2 diabetes mellitus without complication, without long-term current use of insulin E11.9 Active 446583657 Problem Amphetamine use disorder, 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 65930811 Problem PVD (peripheral vascular disease) I73.9 Active 361833601 Problem Mixed hyperlipidemia E78.2 Active 860075553 Problem Bipolar disorder, in partial remission, most recent episode depressed F31.75 Active 48809298 Problem Bipolar I disorder with depression F31.9 Active 70299706 Problem Methamphetamine use disorder, 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 041551943 ALLERGIES No Information ENCOUNTERS Encounter Location Date Diagnosis [facility] [id number] [place] [address] 95570- 7352 Jun, [facility] [id number] [place] [address] 62958- 8422 Jun, [facility] [id number] [place] [address] 42388- 2538 Jun, [facility] [id number] [place] [address] 52074- 9299 May, Bipolar I disorder with depression F31.9 and Amphetamine use disorder, 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 [facility] [id number] [place] [address] 75781- 8947 May, Bipolar I disorder with depression F31.9 and Amphetamine use disorder, 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 [facility] [id number] [place] [address] 72319- 3615 May, [facility] [id number] [place] [address] 81094- 7201 14 May, 2017 BMI 40.0-44.9, adult Z68.41 ; Methamphetamine use disorder, 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 and Bipolar I disorder with depression F31.9 [facility] [id number] [place] [address] 02099- 2563 Mar, [facility] [id number] [place] [address] 31039- 6871 Mar, Methamphetamine use disorder, 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 and Bipolar I disorder with depression F31.9 [place] [id number] [place] [address] 12303- 6537 Mar, Methamphetamine use disorder, 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 ; Bipolar I disorder with depression F31.9 and BMI 40.0-44.9, adult Z68.41 [facility] [id number] [place] [address] 81339- 9686 Mar, [facility] [id number] [place] [address] 83824 -3139 Feb, Cough R05 ; Other viral agents as the cause of diseases classified elsewhere B97.89 ; Acute upper respiratory infection, unspecified J06.9 and BMI 40.0-44.9, adult Z68.41 [facility] [id number] [place] [address] 12896- 9760 Feb, [place] [id number] [place] [address] 96165- 4784 Feb, Methamphetamine use disorder, 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 and Bipolar I disorder with depression F31.9 [facility] [id number] [place] [address] 81796- 6026 Feb, Methamphetamine use disorder, 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 ; Bipolar I disorder with depression F31.9 and BMI 40.0-44.9, adult Z68.41 [place] [address] 79120- 1907 Feb, [place] [address] 74861- 2618 Jan, Type 2 diabetes mellitus without complication, without long- term current use of insulin E11.9 [facility] [address] 06016 -2598 Jan, BMI 40.0-44.9, adult Z68.41 and Open wound of left lower leg, subsequent encounter S81.802D [facility] [place] [address] 38425 -6338 16 Jan, 2017 Abrasion T14.8XXA ; Encounter for immunization Z23 and PVD (peripheral vascular disease) I73.9 [place] [address] 07879- 6739 15 Jan, 2017 [place] [address] 10527- 3353 Jan, [place] [address] 88422- 8473 Jan, Bipolar I disorder with depression F31.9 and Other stimulant dependence, 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 [place] [address] 77274- 6275 2016 Type 2 diabetes mellitus without complication, without long- term current use of insulin E11.9 and Essential hypertension I10 [place] [address] 60067- 2423 28 Nov, 2016 Methamphetamine use disorder, 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 and Bipolar I disorder with depression F31.9 [place] [address] 04195- 1747 26 Nov, 2016 Bipolar I disorder with depression F31.9 and Other stimulant dependence, 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 [facility] [address] [address] 14 Nov, 2016 Bilateral impacted cerumen H61.23 [facility] [id number] [place] [address] 14665- 8597 12 Nov, 2016 Bipolar I disorder with depression F31.9 and Other stimulant dependence, 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 [facility] [id number] [place] [address] 06968- 6001 11 Nov, 2016 [facility] [id number] [place] [address] 14048- 5245 Nov, [facility] [id number] [place] [address] 47767- 4576 Oct, Bipolar I disorder with depression F31.9 and Adderall use disorder, moderate, dependence F15.20 [facility] [id number] [place] [address] 62238- 3249 Oct, Bipolar I disorder with depression F31.9 and Methamphetamine use disorder, 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 [facility] [id number] [place] [address] 16751- 6335 Oct, [facility] [id number] [place] [address] 99776- 9832 Sep, [facility] [id number] [place] [address] 84674- 2335 Sep, Bipolar I disorder with depression F31.9 [facility] [id number] [place] [address] 46907- 4019 Sep, Bipolar I disorder with depression F31.9 and Methamphetamine use disorder, 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 [facility] [id number] [place] [address] 49013- 6793 Sep, Bipolar I disorder with depression F31.9 and Other stimulant dependence, 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 [facility] [id number] [place] [address] 73126- 5699 Sep, [facility] [id number] [place] [address] 02682- 5472 Sep, [facility] [id number] [place] [address] 54834- 2964 Sep, Tick bite, initial encounter W57.XXXA [facility] [id number] [place] [address] 21597- 5406 Aug, [facility] [address] 84582- 4324 Aug, [facility] [id number] [place] [address] 02963- 1901 Aug, Bipolar I disorder with depression F31.9 and Other stimulant dependence, 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 [facility] [address] [place] [address] Aug, [facility] [address] 43761- 2352 Aug, [facility] [address] [place] [address] Aug, [facility] [id number] [place] [address] 21034- 6823 Aug, [facility] [id number] [place] [address] 93745- 3425 Aug, Elevated glucose R73.09 ; Type 2 diabetes mellitus without complication, without long-term current use of insulin E11.9 ; Periumbilical abdominal pain R10.33 and Mixed hyperlipidemia E78.2 [facility] [id number] [place] [address] 20182 -8704 Aug, Periumbilical abdominal pain R10.33 and Tick bite, initial encounter W57.XXXA [facility] [id number] [place] [address] 34018- 0348 Aug, Bipolar I disorder with depression F31.9 [facility] [id number] [place] [address] 73027- 0475 July, Bipolar I disorder with depression F31.9 and Other stimulant dependence, 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 [facility] [id number] [place] [address] 51734- 6651 July, [facility] [address] [place] [address] July, [facility] [id number] [place] [address] 77269- 5320 July, [facility] [id number] [place] [address] 43555- 8833 Jun, Bipolar I disorder with depression F31.9 [facility] [id number] [place] [address] 65930- 5893 Jun, Elevated glucose R73.09 and Other alf (current) drug therapy Z79.899 [facility] [id number] [place] [address] 04022- 4536 Jun, Bipolar I disorder with depression F31.9 and Other alf (current) drug therapy Z79.899 [facility] [id number] [place] [address] 93661- 2782 Jun, [facility] [id number] [place] [address] 65102- 9562 Jun, Bipolar disorder, in partial remission, most recent episode depressed F31.75 and Other stimulant dependence, 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 [facility] [address] [id number] [place] [address] Jun [facility] [id number] [address]43 May, Other viral agents as the cause of diseases classified elsewhere B97.89 and Acute upper respiratory infection, unspecified J06.9 [facility] [id number] [address]- 0454 May, Bipolar disorder, in partial remission, most recent episode depressed F31.75 and Other stimulant dependence, 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 [place] [address] [address]- 2566 May, Bipolar 1 disorder, mixed, full remission F31.78 and Methamphetamine abuse in remission F15.10 [place] [id number] [place] [address] 30566- 0116 Feb, Bipolar affective disorder, remission status unspecified F31.[address] [id number] [place] [address] Feb [place] [id number] [place] [address] 88906- 9298 Feb, Dental examination Z01.20 [place] [id number] [place] [address] 85211- 2738 Jan, Bipolar 1 disorder, depressed, partial remission F31.75 [place] [id number] [place] [address] 59283- 4308 12 Dec, 2015 Bipolar 1 disorder, mixed, full remission F31.78 and Other alf (current) drug therapy Z79.899 [place] [id number] [place] [address] 49760- 6073 11 Dec, 2015 Bipolar 1 disorder, mixed, full remission F31.78 and Other long term care pharmacist (current) drug therapy Z79.899 [place] [address] [place] [address] 80744- 5776 Oct, [place] [id number] [place] [address] 35568- 4325 Oct, Type 2 diabetes mellitus without complication, without long- term current use of insulin E11.9 ; Bipolar disorder, current episode manic without psychotic features, moderate F31.12 ; Essential hypertension I10 ; Venous insufficiency I87.2 and Open wound, lower leg, left, initial encounter S81.802A [place] [id number] [place] [address] 41530- 7894 Oct, [place] [id number] [place] [address] 03897- 0040 Oct, Bipolar affective disorder, remission status unspecified F31.9 [place] [id number] [place] [address] 01301- 7067 Oct, [place] [id number] [place] [address] 70238- 6499 Sep, [place] [id number] [place] [address] 89035- 6987 Sep, [place] [id number] [place] [address] 41685- 9652 Sep, Type 2 diabetes mellitus without complication, without long- term current use of insulin E11.9 ; Essential hypertension I10 and Venous insufficiency I87.2 [facility] [place] [id number] [place] [address] 70425 -9281 Sep, Cellulitis of lower extremity, unspecified laterality L03.119 and Peripheral vascular disease of lower extremity I73.9 [place] [id number] [place] [address] 26268- 8067 Aug, [place] [id number] [place] [address] 11642- 7784 Aug, Bipolar affective disorder, remission status unspecified F31.9 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 [place] [id number] [place] [address] 57453- 8395 Jun, Essential hypertension, hypertension with unspecified goal I10 and Knee pain M25.569 [place] [id number] [place] [address] 73296- 7722 May, [place] [id number] [address]- 8659 May, Bipolar disorder, current episode manic without psychotic features, moderate F31.12 and Essential hypertension, hypertension with unspecified goal I10 [facility] [id number] [place] [address] 70978- 1839 10 May, 2015 Bipolar disorder, current episode manic without psychotic features, moderate F31.12 and Other stimulant dependence, 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 [facility] [id number] [place] [address] 78074- 8180 Dec, [facility] [id number] [place] [address] 78955- 8048 Dec, Bipolar 1 disorder, mixed, full remission F31.78 [facility] [id number] [place] [address] 85945- 0013 Jun, [facility] [id number] [place] [address] 26999- 9945 Jun, [facility] [id number] [place] [address] 72148- 6602 May, [facility] [id number] [place] [address] 89128- 3116 May, [facility] [id number] [place] [address] 36027- 1866 May, [facility] [id number] [place] [address] 43938- 2818 May, [facility] [id number] [place] [address] 11511- 8418 May, [facility] [id number] [place] [address] 18565- 6250 May, [facility] [id number] [place] [address] 94300- 6662 Mar, [facility] [id number] [place] [address] 49038- 2731 Mar, [facility] [place] [facility] [address] [id number] [place] [address]- 3951 Feb, [facility] [place] [facility] [address] [id number] [place] 4303 Jan, [facility] [place] [facility] [address] [id number] [place] [address]- 7732 Jan, [facility] [place] [facility] [address] [id number] [place] [address]- 4298 Jan, [facility] [place] [facility] [address] [id number] [place] [address]- 6056 Jan, [facility] [place] [facility] [address] [id number] [place] [address]- 9645 Nov, [facility] [place] [facility] [address] [id number] [place] [address]- 7730 Nov, [facility] [place] [facility] [address] [id number] [place] [address]- 3766 Oct, [facility] [place] [facility] [address] [id number] [place] [address]- 3584 Oct, [facility] [place] [facility] [address] [id number] [place] [address]- 9348 Sep, [facility] [place] [facility] [address] [id number] [place] [address]- 6663 Sep, [facility] [place] [facility] [address] [id number] [place] [address]- 4359 Sep, [facility] [place] [facility] [address] [id number] [place] [address]- 3166 Sep, [facility] [place] [facility] [address] [id number] [place] [address]- 9160 July, [facility] [place] [facility] [address] [id number] [place] [address]- 4645 July, [facility] [place] [facility] [address] [id number] [place] [address]- 5512 July, [facility] [address] [id number] [place] [address]- 5276 July, [facility] [place] [facility] [address] [id number] [place] [address]- 6492 July, [facility] [address] [id number] [place] [address]- 2057 July, [facility] [place] [facility] [address] [id number] [place] [address]- 5070 July, [facility] [address] [id number] [place] [address]- 8531 July, [facility] [place] [facility] [address] [id number] [place] [address]- 1059 Jun, [facility] [place] [facility] [address] [id number] [place] [address]- 6210 Jun, [facility] [address] [id number] [place] [address]- 7169 Jun, [facility] [place] [facility] [address] [id number] [place] [address]- 8047 Jun, [facility] [address] [id number] [place] [address]- 9794 May, [facility] [place] [facility] [address] [id number] [place] [address]- 8011 May, [facility] [place] [facility] [address] [id number] [place] [address]- 8019 May, [facility] [place] [facility] [address] [id number] [place] [address]- 2096 May, [facility] [place] [facility] [address] [id number] [place] [address]- 2738 May, [facility] [place] [facility] [address] [id number] [place] [address]- 2025 May, [facility] [place] [facility] [address] [id number] [place] [address]- 7082 May, [facility] [place] [facility] [address] [id number] [place] [address]- 5256 May, [facility] [place] [facility] [address] [id number] [place] [address]- 4186 May, [facility] [place] [facility] [address] [id number] [place] [address]- 0150 May, [facility] [place] [facility] [address] [id number] [place] [address]- 6611 May, [facility] [place] [facility] [address] [id number] [place] [address]- 2646 Mar, [facility] [place] [facility] [address] [id number] [place] [address]- 6801 Mar, [facility] [place] [facility] [address] [id number] [place] [address]- 9363 Mar, [facility] [place] [facility] [address] [id number] [place] [address]- 1370 Mar, [facility] [place] [facility] [address] [id number] [place] [address]- 3023 Feb, [facility] [place] [facility] [address] [id number] [place] [address]- 3857 Feb, [facility] [place] [facility] [address] [id number] [place] [address]- 4763 Feb, [facility] [place] [facility] [address] [id number] [place] [address]- 0913 Feb, [facility] [place] [facility] [address] [id number] [place] [address]- 6317 Jan, [facility] [place] [facility] [address] [id number] [place] [address]- 9789 Jan, [facility] [place] [facility] [id number] [address]- 2546 Jan, [facility] [id number] [address]- 9006 Jan, [facility] [address] [address]- 9236 Mar, [facility] [address] [address] Mar, [facility] [id number] [place] [address] Feb, [facility] [address] [address] Jan, [facility] [id number] [address] Dec, [facility] [address] [address] Nov, [facility] [address] [place] [address] Oct, [facility] [address] [address] Sep, [facility] [id number], [place] [address] Feb, IMMUNIZATIONS No Known Immunizations SOCIAL HISTORY Never Assessed REASON FOR VISIT f/u, Bipolar Disorder. PLAN OF CARE Activity Details Follow Up 2 Weeks Reason:Bipolar disorder. VITAL SIGNS MEDICATIONS Unknown Medications RESULTS No Results PROCEDURES Procedure Date Ordered Result Body Site [facility] MENT[facility] HE[facility] ESTAB PT September 24, 2016 Psychotherapy, patient &/family, 45 minutes, established patient September 24, 2016 INSTRUCTIONS MEDICATIONS ADMINISTERED No Known Medications MEDICAL (GENERAL) HISTORY Type Description Date Medical History Bipolar disorder, current episode manic without psychotic features, moderate Medical History Essential hypertension, hypertension with unspecified goal Medical History diabetes Medical History hypercholesterolemia Surgical History Hernia repair 03/2014 Surgical History Oral Surgery 06/2014 Hospitalization History early 1999 [place] [facility] [place] experiencing SI
--- OUTSIDE RECORDS SUMMARY | 2017-08-06 10:26 | XMS REPORT ---
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
--- OUTSIDE RECORDS SUMMARY | 2017-08-06 10:26 | XMS REPORT ---
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 Active Assessment Bipolar affective disorder, remission status unspecified F31.9 Active Problem Bipolar affective disorder, remission status unspecified F31.9 Active Problem Bipolar disorder, current episode manic without psychotic features, moderate F31.12 Active Medications Medication Code System Code Instructions Start Date End Date Status Dosage Hydrochlorothiazide [facility] [address]-15 50 MG Orally Once a day 1 tablet Metformin HCl [facility] [address]-79 1000 MG Orally Twice a day October 20, 2015 1 tablet with meals Lisinopril [facility] [address]-16 20 mg Orally Once a day June 22, 2015 1 tablet Latuda [facility] [address]-49 40 MG Orally Once a day Dec 29, 2014 1 tablet with food Procedures Procedure Coding System Code Date Office Visit, Est Pt., Level 4 CPT-4 92773 Nov 09, 2015 [facility] VISIT ESTABLISHED PATIENT CPT-4 G0467 Nov 09, 2015 Vital Signs Date/Time: Nov 09, 2015 Cardiac Monitoring Heart Rate 104 bpm Weight 310.8 lbs Height 71 in BMI 43.34 Index Blood Pressure Diastolic 80 mmHg Blood Pressure Systolic 156 mmHg Results No Known Results Summary Purpose [employer] Submission
--- OUTSIDE RECORDS SUMMARY | 2017-08-06 10:26 | XMS REPORT ---
Author Author CHIARA RODRIGUEZ [facility] [employer] Address Unknown Phone Unavailable Care Team Providers Care Research Environmental Scientist Name Role Phone CHIARA RODRIGUEZ CP Unavailable Allergies No Known Allergies Problems Problem Type Condition Code Onset Dates Condition Status Problem Essential hypertension, benign 401.1 Active Problem Herpes zoster without mention of complication 053.9 Active Medications Medication Code System Code Instructions Start Date End Date Status Dosage Latuda [facility] [address]-53 40 MG Orally Once a day Dec 29, 2014 1 tablet with food Results No Known Results Summary Purpose [employer] Submission
--- OUTSIDE RECORDS SUMMARY | 2017-08-06 10:27 | XMS REPORT ---
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 Active 811538153 Problem Type 2 diabetes mellitus without complication, without long-term current use of insulin E11.9 Active 195521905 Problem Amphetamine use disorder, 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 05720524 Problem PVD (peripheral vascular disease) I73.9 Active 170626938 Problem Mixed hyperlipidemia E78.2 Active 408684428 Problem Bipolar disorder, in partial remission, most recent episode depressed F31.75 Active 03832286 Problem Bipolar I disorder with depression F31.9 Active 93386702 Problem Methamphetamine use disorder, 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 045994711 ALLERGIES No Information ENCOUNTERS Encounter Location Date Diagnosis [place] [id number] [place] [address] 44972- 7436 Jun, [facility] [address] [place] [id number] [place] [address] 92313- 6756 Jun, [facility] [id number] [place] [address] 12091- 5770 Jun, [place] [address] [id number] [place] [address] 20419- 2400 May, Bipolar I disorder with depression F31.9 and Amphetamine use disorder, 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 [place] [id number] [place] [address] 39335- 6873 May, Bipolar I disorder with depression F31.9 and Amphetamine use disorder, 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 [facility] [id number] [place] [address] 02555- 4767 May, [facility] [address] [id number] [place] [address] 81604- 7624 14 May, 2017 BMI 40.0-44.9, adult Z68.41 ; Methamphetamine use disorder, 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 and Bipolar I disorder with depression F31.9 [facility] [id number] [place] [address] 81144- 5766 Mar, [facility] [address] [place] [id number] [place] [address] 06423- 6939 Mar, Methamphetamine use disorder, 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 and Bipolar I disorder with depression F31.9 [place] [id number] [place] [address] 99948- 1884 Mar, Methamphetamine use disorder, 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 ; Bipolar I disorder with depression F31.9 and BMI 40.0-44.9, adult Z68.41 [facility] [address] [place] [id number] [place] [address] 79222- 3343 Mar, [facility] [address] [address] Feb, Cough R05 ; Other viral agents as the cause of diseases classified elsewhere B97.89 ; Acute upper respiratory infection, unspecified J06.9 and BMI 40.0-44.9, adult Z68.41 [facility] [address] [address] 3070 Feb, [place] [address] [address] [id number] [place] [address] 06896- 5035 Feb, Methamphetamine use disorder, 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 and Bipolar I disorder with depression F31.9 [facility] [id number] [place] [address] 25507- 1629 Feb, Methamphetamine use disorder, 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 ; Bipolar I disorder with depression F31.9 and BMI 40.0-44.9, adult Z68.41 [place] [address] 40880- 6461 Feb, [place] [address] 92297- 3264 Jan, Type 2 diabetes mellitus without complication, without long- term current use of insulin E11.9 [facility] [address] [address] Jan, BMI 40.0-44.9, adult Z68.41 and Open wound of left lower leg, subsequent encounter S81.802D [facility] [place] [address] [address]9828 16 Jan, 2017 Abrasion T14.8XXA ; Encounter for immunization Z23 and PVD (peripheral vascular disease) I73.9 [place] [address] 59357- 1134 15 Jan, 2017 [place] [address] 48004- 6981 Jan, [place] [address] 55503- 8609 Jan, Bipolar I disorder with depression F31.9 and Other stimulant dependence, 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 [place] [address] [id number] [place] [address] 46633- 4917 2016 Type 2 diabetes mellitus without complication, without long- term current use of insulin E11.9 and Essential hypertension I10 [place] [address] 54217- 2053 28 Nov, 2016 Methamphetamine use disorder, 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 and Bipolar I disorder with depression F31.9 [place] [address] 73522- 2462 26 Nov, 2016 Bipolar I disorder with depression F31.9 and Other stimulant dependence, 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 [facility] [id number] [place] [address] 36193 -4861 14 Nov, 2016 Bilateral impacted cerumen H61.23 [facility] [id number] [place] [address] 09818- 1479 12 Nov, 2016 Bipolar I disorder with depression F31.9 and Other stimulant dependence, 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 [facility] [address] [id number] [place] [address] 56676- 1184 11 Nov, 2016 [facility] [id number] [place] [address] 91694- 7376 Nov, [facility] [address] [place] [id number] [place] [address] 55477- 0826 Oct, Bipolar I disorder with depression F31.9 and Adderall use disorder, moderate, dependence F15.20 [facility] [id number] [place] [address] 58083- 2025 Oct, Bipolar I disorder with depression F31.9 and Methamphetamine use disorder, 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 [facility] [address] [id number] [place] [address] 23655- 7341 Oct, [facility] [address] [place] [address] [id number] [place] [address] 92286- 1531 Sep, [facility] [address] [place] [address] 29370- 3166 Sep, Bipolar I disorder with depression F31.9 [facility] [address] [id number] [place] [address] 88246- 8474 Sep, Bipolar I disorder with depression F31.9 and Methamphetamine use disorder, 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 [facility] [id number] [place] [address] 31734- 1304 Sep, Bipolar I disorder with depression F31.9 and Other stimulant dependence, 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 [facility] [address] [place] [address] 79766- 0040 Sep, [facility] [address] [place] [address] 03674- 6343 Sep, [facility] [address] [id number] [place] [address] 75595- 4828 Sep, Tick bite, initial encounter W57.XXXA [facility] [address] [id number] [place] [address] 11406- 5284 Aug, [facility] [address] [id number] [place] [address] 54409- 5715 Aug, [facility] [address] [place] [id number] [place] [address] 47267- 4266 Aug, Bipolar I disorder with depression F31.9 and Other stimulant dependence, 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 [facility] [address] [place] [address] Aug, [facility] [address] [place] [id number] [place] [address] 96082- 8653 Aug, [facility] [address] [place] [address] Aug, [facility] [address] [place] [id number] [place] [address] 47574- 8254 Aug, [facility] [address] [place] [id number] [place] [address] 62304- 3193 Aug, Elevated glucose R73.09 ; Type 2 diabetes mellitus without complication, without long-term current use of insulin E11.9 ; Periumbilical abdominal pain R10.33 and Mixed hyperlipidemia E78.2 [facility] [address] [place] [address] 92318 -9360 Aug, Periumbilical abdominal pain R10.33 and Tick bite, initial encounter W57.XXXA [facility] [address] [place] [id number] [place] [address] 73042- 9834 Aug, Bipolar I disorder with depression F31.9 [facility] [address] [place] [id number] [place] [address] 70461- 3874 July, Bipolar I disorder with depression F31.9 and Other stimulant dependence, 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 [facility] [address], [place] [address]- 3344 July, [facility] [address] [place] [address] July, [facility] [address] [place] [address] 32419- 1721 July, [facility] [address] [place] [address] 14220- 1593 Jun, Bipolar I disorder with depression F31.9 [facility] [address] [place] [address] 03355- 8247 Jun, Elevated glucose R73.09 and Other project scientist (current) drug therapy Z79.899 [facility] [id number] [place] [address] 50081- 6890 Jun, Bipolar I disorder with depression F31.9 and Other fci (current) drug therapy Z79.899 [facility] [address] [address]- 5529 Jun, [facility] [address] [place] [address] 52250- 9076 Jun, Bipolar disorder, in partial remission, most recent episode depressed F31.75 and Other stimulant dependence, 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 [facility] [address] [id number] [place] [address] Jun [facility] [address] [place] [id number], [place] [address] May, Other viral agents as the cause of diseases classified elsewhere B97.89 and Acute upper respiratory infection, unspecified J06.9 [facility] [address] [place] [address] [id number], [place] [address]- 5498 May, Bipolar disorder, in partial remission, most recent episode depressed F31.75 and Other stimulant dependence, 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 [place] [address], [place] [address]- 0659 02 May, 2016 Bipolar 1 disorder, mixed, full remission F31.78 and Methamphetamine abuse in remission F15.10 [place] [address], [place] [address]- 2486 Feb, Bipolar affective disorder, remission status unspecified F31.[address] [id number] [place] [address] Feb [place] [address] [place] [id number] [place] [address] 68913- 9900 Feb, Dental examination Z01.20 [place] [address] [place] [id number] [place] [address] 98752- 8185 Jan, Bipolar 1 disorder, depressed, partial remission F31.75 [place] [address] [place] [id number] [place] [address] 06548- 7057 12 Dec, 2015 Bipolar 1 disorder, mixed, full remission F31.78 and Other project scientist (current) drug therapy Z79.899 [place] [address] [place] [id number] [place] [address] 93195- 7666 11 Dec, 2015 Bipolar 1 disorder, mixed, full remission F31.78 and Other project scientist (current) drug therapy Z79.899 [place] [address] [place] [address] 28056- 7753 Oct, [place] [address] [place] [id number] [place] [address] 21604- 0866 Oct, Type 2 diabetes mellitus without complication, without long- term current use of insulin E11.9 ; Bipolar disorder, current episode manic without psychotic features, moderate F31.12 ; Essential hypertension I10 ; Venous insufficiency I87.2 and Open wound, lower leg, left, initial encounter S81.802A [place] [address] [place] [address] 15476- 0733 Oct, [place] [address] [place] [id number] [place] [address] 86784- 6654 Oct, Bipolar affective disorder, remission status unspecified F31.9 [place] [address] [place] [id number] [place] [address] 85404- 2632 Oct, [facility] [address] [id number] [place] [address] 77120- 9683 Sep, [place] [address] [place] [id number] [place] [address] 63303- 1354 Sep, [place] [address] [place] [id number] [place] [address] 91332- 4411 Sep, Type 2 diabetes mellitus without complication, without long- term current use of insulin E11.9 ; Essential hypertension I10 and Venous insufficiency I87.2 [facility] [place] [address] [place] [id number] [place] [address] 69949 -4191 Sep, Cellulitis of lower extremity, unspecified laterality L03.119 and Peripheral vascular disease of lower extremity I73.9 [place] [address] [place] [id number] [place] [address] 80434- 0071 Aug, [place] [address] [place] [id number] [place] [address] 58583- 0374 Aug, Bipolar affective disorder, remission status unspecified F31.9 [facility] [address] [place] [id number] [place] [address] 49058 -6275 July, Cellulitis, unspecified cellulitis site L03.90 [place] [address] [place] [id number] [place] [address] 71623- 1117 Jun, Bipolar disorder, current episode manic without psychotic features, moderate F31.12 and Other stimulant dependence, 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 [place] [address] [place] [id number] [place] [address] 54098- 2467 Jun, Essential hypertension, hypertension with unspecified goal I10 and Knee pain M25.569 [place] [address] [place] [id number] [place] [address] 62789- 9134 May, [facility] [address], [place] [address]- 3966 May, Bipolar disorder, current episode manic without psychotic features, moderate F31.12 and Essential hypertension, hypertension with unspecified goal I10 [facility] [address] [id number] [place] [address] 89616- 9071 May, Bipolar disorder, current episode manic without psychotic features, moderate F31.12 and Other stimulant dependence, 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 [facility] [id number] [place] [address] 26374- 2238 Dec, [facility] [address] [id number] [place] [address] 97321- 3342 Dec, Bipolar 1 disorder, mixed, full remission F31.78 [facility] [address] [id number] [place] [address] 21556- 2698 Jun, [facility] [address] [id number] [place] [address] 06730- 7443 Jun, [facility] [id number] [place] [address] 36698- 1125 May, [facility] [address] [id number] [place] [address] 11718- 0153 May, [facility] [address] [id number] [place] [address] 30645- 0568 May, [facility] [address] [id number] [place] [address] 01891- 3924 May, [facility] [address] [place] [address] 38269- 3157 May, [facility] [address] [place] [id number] [place] [address] 07032- 2755 May, [facility] [address], [place] [address]- 0577 Mar, [facility] [address] [id number] [place] [address] 32309- 6315 Mar, [facility] [place] [facility] [address] [id number] [place] [address]- 3794 Feb, [facility] [place] [facility] [address] [id number] [place] [address]- 9730 Jan, [facility] [place] [facility] [address] [id number] [place] [address]- 8316 Jan, [facility] [place] [facility] [address] [id number] [place] [address]- 7001 Jan, [facility] [place] [facility] [address] [id number] [place] [address]- 6421 Jan, [facility] [place] [facility] [address] [id number] [place] [address]- 4871 Nov, [facility] [place] [facility] [address] [id number] [place] [address]- 2198 Nov, [facility] [place] [facility] [address] [id number] [place] [address]- 6094 Oct, [facility] [place] [facility] [address] [id number] [place] [address]- 2651 Oct, [facility] [place] [facility] [address] [id number] [place] [address]- 2809 Sep, [facility] [place] [facility] [address] [id number] [place] [address]- 3983 Sep, [facility] [place] [facility] [address] [id number] [place] [address]- 5609 Sep, [facility] [place] [facility] [address] [id number] [place] [address]- 4450 Sep, [facility] [place] [facility] [address] [id number] [place] [address]- 0530 July, [facility] [place] [facility] [address] [id number] [place] [address]- 1915 July, [facility] [place] [facility] [address] [id number] [place] [address]- 1796 July, [facility] [place] [facility] [address] [id number] [place] [address]- 6355 July, [facility] [place] [facility] [address] [id number] [place] [address]- 7392 July, [facility] [place] [facility] [address] [id number] [place] [address]- 8282 July, [facility] [place] [facility] [address] [id number] [place] [address]- 9832 July, [facility] [place] [facility] [address] [id number] [place] [address]- 2771 July, [facility] [place] [facility] [address] [id number] [place] [address]- 2510 Jun, [facility] [place] [facility] [address] [id number] [place] [address]- 1724 Jun, [facility] [place] [facility] [address] [id number] [place] [address]- 6958 Jun, [facility] [place] [facility] [address] [id number] [place] [address]- 2224 Jun, [facility] [place] [facility] [address] [id number] [place] [address]- 5891 May, [facility] [place] [facility] [address] [id number] [place] [address]- 9401 May, [facility] [place] [facility] [address] [id number] [place] [address]- 7927 May, [facility] [place] [facility] [address] [id number] [place] [address]- 1531 May, [facility] [place] [facility] [address] [id number] [place] [address]- 5155 May, [facility] [place] [facility] [address] [id number] [place] [address]- 5628 May, [facility] [place] [facility] [address] [id number] [place] [address]- 1631 May, [facility] [place] [facility] [address] [id number] [place] [address]- 9976 May, [facility] [place] [facility] [address] [id number] [place] [address]- 7016 May, [facility] [place] [facility] [address] [id number] [place] [address]- 9189 May, [facility] [place] [facility] [address] [id number] [place] [address]- 3143 May, [facility] [place] [facility] [address] [id number] [place] [address]- 4952 Mar, [facility] [place] [facility] [address] [id number] [place] [address]- 7959 Mar, [facility] [place] [facility] [address] [id number] [place] [address]- 1229 Mar, [facility] [place] [facility] [address] [id number] [place] [address]- 9057 Mar, [facility] [place] [facility] [address] [facility] [id number] [place] [address]- 8475 Feb, [facility] [place] [facility] [address] [id number] [place] [address]- 3023 Feb, [facility] [place] [facility] [address] [id number] [place] [address]- 5183 Feb, [facility] [place] [facility] [address] [id number] [place] [address]- 9814 Feb, [facility] [place] [facility] [address] [id number] [place] [address]- 9495 Jan, [facility] [place] [facility] [address] [id number] [place] [address]- 4710 Jan, [facility] [place] [facility] [id number], [place] [address]- 3291 Jan, [facility] [id number], [place] [address]- 9344 Jan, [facility] [address] [facility] [id number], [place] [address] Mar, [facility] [id number], [place] [address] Mar, [facility] [address] [facility] [id number], [place] [address] Feb, [facility] [id number], [place] [address] Jan, [facility] [id number], [place] [address] Dec, [facility] [id number], [place] [address] Nov, [facility] [id number], [place] [address] Oct, [facility] [id number], [place] [address] Sep, [facility] [id number], [place] [address] Feb, IMMUNIZATIONS No Known Immunizations SOCIAL HISTORY Never Assessed REASON FOR VISIT R/S appointment PLAN OF CARE VITAL SIGNS MEDICATIONS Unknown [...] early 1999 he had inpatient stay at [facility] when he was experiencing SI
--- OUTSIDE RECORDS SUMMARY | 2017-08-06 10:27 | XMS REPORT ---
Author Author SOFIA SANTIAGO Organization [employer] Address Unknown Phone Unavailable Care Team Providers Care Sr. 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
--- OUTSIDE RECORDS SUMMARY | 2017-08-06 10:27 | XMS REPORT ---
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 Active 020852964 Problem Type 2 diabetes mellitus without complication, without long-term current use of insulin E11.9 Active 174125127 Problem Amphetamine use disorder, 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 69041345 Problem PVD (peripheral vascular disease) I73.9 Active 224699496 Problem Mixed hyperlipidemia E78.2 Active 144034274 Problem Bipolar disorder, in partial remission, most recent episode depressed F31.75 Active 04552837 Problem Bipolar I disorder with depression F31.9 Active 92066320 Problem Methamphetamine use disorder, 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 131911545 ALLERGIES No Information ENCOUNTERS Encounter Location Date Diagnosis [place] [id number] [place] [address] 58718- 7440 Jun, [facility] [address] [place] [id number] [place] [address] 61334- 0592 Jun, [facility] [id number] [place] [address] 11120- 4881 Jun, [facility] [address] [address] [id number] [place] [address] 63204- 7928 May, Bipolar I disorder with depression F31.9 and Amphetamine use disorder, 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 [facility] [address] [address] [id number] [place] [address] 69029- 2887 May, Bipolar I disorder with depression F31.9 and Amphetamine use disorder, 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 [facility] [id number] [place] [address] 01902- 8045 May, [facility] [id number] [place] [address] 26515- 8447 14 May, 2017 BMI 40.0-44.9, adult Z68.41 ; Methamphetamine use disorder, 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 and Bipolar I disorder with depression F31.9 [facility] [id number] [place] [address] 92471- 6032 Mar, [facility] [address] [place] [id number] [place] [address] 85862- 7704 Mar, Methamphetamine use disorder, 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 and Bipolar I disorder with depression F31.9 [place] [address] [address] [id number] [place] [address] 37289- 7530 Mar, Methamphetamine use disorder, 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 ; Bipolar I disorder with depression F31.9 and BMI 40.0-44.9, adult Z68.41 [facility] [address] [place] [id number] [place] [address] 20002- 2136 Mar, [facility] [address] [address] Feb, Cough R05 ; Other viral agents as the cause of diseases classified elsewhere B97.89 ; Acute upper respiratory infection, unspecified J06.9 and BMI 40.0-44.9, adult Z68.41 [facility] [address], [place] [address] 6[address] Feb, [place] [address] [address] [id number] [place] [address] 25395- 1953 Feb, Methamphetamine use disorder, 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 and Bipolar I disorder with depression F31.9 [facility] [address] [place] [address] 34623- 9900 Feb, Methamphetamine use disorder, 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 ; Bipolar I disorder with depression F31.9 and BMI 40.0-44.9, adult Z68.41 [place] [address] 16587- 6794 Feb, [place] [address] 94616- 8391 Jan, Type 2 diabetes mellitus without complication, without long- term current use of insulin E11.9 [facility] [address] [address] Jan, BMI 40.0-44.9, adult Z68.41 and Open wound of left lower leg, subsequent encounter S81.802D [facility] [place] [address] 8[address]7102 16 Jan, 2017 Abrasion T14.8XXA ; Encounter for immunization Z23 and PVD (peripheral vascular disease) I73.9 [place] [address] 35023- 4271 15 Jan, 2017 [place] [address] 88560- 9788 Jan, [place] [address] 05696- 8246 Jan, Bipolar I disorder with depression F31.9 and Other stimulant dependence, 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 [place] [address] [place] [id number] [place] [address] 73363- 9921 2016 Type 2 diabetes mellitus without complication, without long- term current use of insulin E11.9 and Essential hypertension I10 [place] [address] 42353- 6829 28 Nov, 2016 Methamphetamine use disorder, 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 and Bipolar I disorder with depression F31.9 [place] [address] 93323- 7062 26 Nov, 2016 Bipolar I disorder with depression F31.9 and Other stimulant dependence, 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 [facility] [id number] [place] [address] 24730 -4052 14 Nov, 2016 Bilateral impacted cerumen H61.23 [facility] [address] [id number] [place] [address] 95994- 7483 12 Nov, 2016 Bipolar I disorder with depression F31.9 and Other stimulant dependence, 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 [facility] [address] [id number] [place] [address] 71690- 6982 11 Nov, 2016 [facility] [address] [place] [address] [id number] [place] [address] 82490- 8067 Nov, [facility] [address] [place] [id number] [place] [address] 32311- 0577 Oct, Bipolar I disorder with depression F31.9 and Adderall use disorder, moderate, dependence F15.20 [facility] [address] [place] [address] [id number] [place] [address] 92102- 6923 Oct, Bipolar I disorder with depression F31.9 and Methamphetamine use disorder, 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 [facility] [address] [place] [address] [id number] [place] [address] 01103- 0170 Oct, [facility] [address] [place] [address] [id number] [place] [address] 60461- 1957 Sep, [facility] [address] [place] [address] 17125- 5271 Sep, Bipolar I disorder with depression F31.9 [facility] [address] [place] [address] [id number] [place] [address] 37479- 1325 Sep, Bipolar I disorder with depression F31.9 and Methamphetamine use disorder, 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 [facility] [address] [place] [address] [id number] [place] [address] 90175- 6325 Sep, Bipolar I disorder with depression F31.9 and Other stimulant dependence, 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 [facility] [address] [place] [address] 47917- 1633 Sep, [facility] [address] [place] [address] 13526- 1045 Sep, [facility] [address] [place] [address] [id number] [place] [address] 33353- 3228 Sep, Tick bite, initial encounter W57.XXXA [facility] [address] [place] [id number] [place] [address] 85588- 1555 Aug, [facility] [address] [place] [address] [id number] [place] [address] 85170- 8088 Aug, [facility] [address] [place] [id number] [place] [address] 72311- 3978 Aug, Bipolar I disorder with depression F31.9 and Other stimulant dependence, 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 [facility] [address] [place] [address] Aug, [facility] [address] [place] [address] [id number] [place] [address] 53715- 1208 Aug, [facility] [address] [place] [address] Aug, [facility] [address] [place] [id number] [place] [address] 02750- 1736 Aug, [facility] [address] [place] [address] [id number] [place] [address] 25333- 1027 Aug, Elevated glucose R73.09 ; Type 2 diabetes mellitus without complication, without long-term current use of insulin E11.9 ; Periumbilical abdominal pain R10.33 and Mixed hyperlipidemia E78.2 [facility] [address] [place] [address] 28390 -3593 Aug, Periumbilical abdominal pain R10.33 and Tick bite, initial encounter W57.XXXA [facility] [address] [place] [id number] [place] [address] 65810- 8044 Aug, Bipolar I disorder with depression F31.9 [facility] [address] [place] [id number] [place] [address] 38096- 7248 July, Bipolar I disorder with depression F31.9 and Other stimulant dependence, 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 [facility] [address], [place] [address] 8510 July, [facility] [address] [place] [address] July, [facility] [address] [place] [address] 47672- 9682 July, [facility] [address] [place] [address] 57188- 2900 Jun, Bipolar I disorder with depression F31.9 [facility] [address] [place] [address] 26639- 6231 Jun, Elevated glucose R73.09 and Other shelter (current) drug therapy Z79.899 [facility] [address] [place] [address] 36141- 3655 Jun, Bipolar I disorder with depression F31.9 and Other shelter (current) drug therapy Z79.899 [facility] [address], [place] [address]- 2728 Jun, [facility] [address] [place] [address] 32357- 1235 Jun, Bipolar disorder, in partial remission, most recent episode depressed F31.75 and Other stimulant dependence, 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 [facility] [address] [id number] [place] [address] Jun [facility] [address] [place] [id number], [place] [address] May, Other viral agents as the cause of diseases classified elsewhere B97.89 and Acute upper respiratory infection, unspecified J06.9 [facility] [address] [place] [id number], [place] [address]- 9319 May, Bipolar disorder, in partial remission, most recent episode depressed F31.75 and Other stimulant dependence, 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 [place] [address] [address]- 4609 02 May, 2016 Bipolar 1 disorder, mixed, full remission F31.78 and Methamphetamine abuse in remission F15.10 [place] [address], [place] [address]- 5939 Feb, Bipolar affective disorder, remission status unspecified F31.[address] [id number] [place] [address] Feb [place] [address] [place] [id number] [place] [address] 58795- 9212 Feb, Dental examination Z01.20 [place] [address] [place] [id number] [place] [address] 12408- 8904 Jan, Bipolar 1 disorder, depressed, partial remission F31.75 [place] [address] [place] [id number] [place] [address] 31179- 3230 12 Dec, 2015 Bipolar 1 disorder, mixed, full remission F31.78 and Other shelter (current) drug therapy Z79.899 [place] [address] [place] [id number] [place] [address] 01076- 4137 11 Dec, 2015 Bipolar 1 disorder, mixed, full remission F31.78 and 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 Z79.899 [place] [address] [place] [address] 52667- 2188 Oct, [place] [address] [place] [id number] [place] [address] 71553- 7031 Oct, Type 2 diabetes mellitus without complication, without long- term current use of insulin E11.9 ; Bipolar disorder, current episode manic without psychotic features, moderate F31.12 ; Essential hypertension I10 ; Venous insufficiency I87.2 and Open wound, lower leg, left, initial encounter S81.802A [place] [address] [place] [address] 47536- 9160 Oct, [place] [address] [place] [id number] [place] [address] 17603- 4028 Oct, Bipolar affective disorder, remission status unspecified F31.9 [place] [address] [place] [id number] [place] [address] 64954- 9635 Oct, [facility] [address] [place] [id number] [place] [address] 67943- 8217 Sep, [place] [address] [place] [id number] [place] [address] 23263- 0605 Sep, [place] [address] [place] [id number] [place] [address] 65988- 7970 Sep, Type 2 diabetes mellitus without complication, without long- term current use of insulin E11.9 ; Essential hypertension I10 and Venous insufficiency I87.2 [facility] [place] [address] [place] [address] [id number] [place] [address] 29231 -7233 Sep, Cellulitis of lower extremity, unspecified laterality L03.119 and Peripheral vascular disease of lower extremity I73.9 [place] [address] [place] [id number] [place] [address] 22471- 3707 Aug, [place] [address] [place] [id number] [place] [address] 86254- 6247 Aug, Bipolar affective disorder, remission status unspecified F31.9 [facility] [address] [place] [id number] [place] [address] 71186 -1519 July, Cellulitis, unspecified cellulitis site L03.90 [place] [address] [place] [id number] [place] [address] 49535- 7578 Jun, Bipolar disorder, current episode manic without psychotic features, moderate F31.12 and Other stimulant dependence, 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 [place] [address] [place] [id number] [place] [address] 26882- 3720 Jun, Essential hypertension, hypertension with unspecified goal I10 and Knee pain M25.569 [place] [address] [place] [id number] [place] [address] 34058- 4306 May, [facility] [address], [place] [address]- 2043 May, Bipolar disorder, current episode manic without psychotic features, moderate F31.12 and Essential hypertension, hypertension with unspecified goal I10 [facility] [address] [place] [id number] [place] [address] 40434- 6726 May, Bipolar disorder, current episode manic without psychotic features, moderate F31.12 and Other stimulant dependence, 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 [facility] [address] [place] [id number] [place] [address] 93697- 0076 Dec, [facility] [address] [place] [id number] [place] [address] 86799- 2722 Dec, Bipolar 1 disorder, mixed, full remission F31.78 [facility] [address] [place] [id number] [place] [address] 58799- 7977 Jun, [facility] [address] [place] [id number] [place] [address] 02272- 3600 Jun, [facility] [address] [place] [id number] [place] [address] 32807- 1013 May, [facility] [address] [place] [id number] [place] [address] 08242- 0024 May, [facility] [address] [place] [id number] [place] [address] 17048- 8751 May, [facility] [address] [place] [id number] [place] [address] 10998- 9217 May, [facility] [address] [place] [address] 18044- 7961 May, [facility] [address] [place] [id number] [place] [address] 45352- 6019 May, [facility] [address], [place] [address]- 5959 Mar, [facility] [address] [place] [id number] [place] [address] 73760- 8768 Mar, [facility] [place] [facility] [address] [id number] [place] [address]- 9842 Feb, [facility] [place] [facility] [address] [id number] [place] [address]- 2224 Jan, [facility] [place] [facility] [address] [id number] [place] [address]- 9209 Jan, [facility] [place] [facility] [address] [id number] [place] [address]- 2362 Jan, [facility] [place] [facility] [address] [id number] [place] [address]- 5028 Jan, [facility] [place] [facility] [address] [id number] [place] [address]- 8577 Nov, [facility] [place] [facility] [address] [id number] [place] [address]- 5132 Nov, [facility] [place] [facility] [address] [id number] [place] [address]- 6225 Oct, [facility] [place] [facility] [address] [id number] [place] [address]- 9139 Oct, [facility] [place] [facility] [address] [id number] [place] [address]- 9776 Sep, [facility] [place] [facility] [address] [id number] [place] [address]- 1071 Sep, [facility] [place] [facility] [address] [id number] [place] [address]- 4830 Sep, [facility] [place] [facility] [address] [id number] [place] [address]- 6748 Sep, [facility] [place] [facility] [address] [id number] [place] [address]- 8099 July, [facility] [place] [facility] [address] [id number] [place] [address]- 5683 July, [facility] [place] [facility] [address] [id number] [place] [address]- 4996 July, [facility] [place] [facility] [address] [id number] [place] [address]- 0873 July, [facility] [place] [facility] [address] [id number] [place] [address]- 7266 July, [facility] [place] [facility] [address] [id number] [place] [address]- 6466 July, [facility] [place] [facility] [address] [id number] [place] [address]- 3912 July, [facility] [place] [facility] [address] [id number] [place] [address]- 1712 July, [facility] [place] [facility] [address] [id number] [place] [address]- 8872 Jun, [facility] [place] [facility] [address] [id number] [place] [address]- 1620 Jun, [facility] [place] [facility] [address] [id number] [place] [address]- 7893 Jun, [facility] [place] [facility] [address] [id number] [place] [address]- 5965 Jun, [facility] [place] [facility] [address] [id number] [place] [address]- 7021 May, [facility] [place] [facility] [address] [id number] [place] [address]- 4848 May, [facility] [place] [facility] [address] [id number] [place] [address]- 2645 May, [facility] [place] [facility] [address] [id number] [place] [address]- 4602 May, [facility] [place] [facility] [address] [id number] [place] [address]- 6132 May, [facility] [place] [facility] [address] [id number] [place] [address]- 2364 May, [facility] [place] [facility] [address] [id number] [place] [address]- 9557 May, [facility] [place] [facility] [address] [id number] [place] [address]- 2796 May, [facility] [place] [facility] [address] [id number] [place] [address]- 9496 May, [facility] [place] [facility] [address] [id number] [place] [address]- 9894 May, [facility] [place] [facility] [address] [id number] [place] [address]- 2811 May, [facility] [place] [facility] [address] [id number] [place] [address]- 3452 Mar, [facility] [place] [facility] [address] [id number] [place] [address]- 5809 Mar, [facility] [place] [facility] [address] [id number] [place] [address]- 1446 Mar, [facility] [place] [facility] [address] [id number] [place] [address]- 6626 Mar, [facility] [place] [facility] [address] [facility] [facility] [id number] [place] [address]- 0007 Feb, [facility] [place] [facility] [address] [id number] [place] [address]- 3911 Feb, [facility] [place] [facility] [address] [id number] [place] [address]- 5127 Feb, [facility] [place] [facility] [address] [id number] [place] [address]- 7224 Feb, [facility] [place] [facility] [address] [id number] [place] [address]- 0248 Jan, [facility] [place] [facility] [address] [id number] [place] [address]- 3864 Jan, [facility] [place] [facility] [address] [facility] [id number] [address] Jan, [facility] [address] [facility] [id number], [place] [address]- 3029 Jan, [facility] [address] [facility] [id number], [place] [address]- 8533 Mar, [facility] [address] [facility] [id number], [place] [address]- 0408 Mar, [facility] [address] [facility] [id number], [place] [address]- 7184 Feb, [facility] [address], [place] [address]- 1795 Jan, [facility] [id number], [place] [address]- 4970 Dec, [facility] [address], [place] [address]- 8997 Nov, [facility] [id number], [place] [address]- 4091 Oct, [facility] [id number], [place] [address]- 8845 Sep, [facility] [id number], [place] [address] Feb, IMMUNIZATIONS No Known Immunizations SOCIAL HISTORY Never Assessed REASON FOR VISIT PALS-latuda PLAN OF CARE VITAL SIGNS MEDICATIONS Medication Instructions Dosage Frequency Start Date End Date Duration Status Latuda 80 MG Orally daily at suppertime 1 tablet with food 90 days Active RESULTS No Results PROCEDURES No Known procedures INSTRUCTIONS MEDICATIONS ADMINISTERED No Known Medications MEDICAL (GENERAL) HISTORY Type Description Date Medical History Bipolar disorder, current episode manic without psychotic features, moderate Medical History Essential hypertension, hypertension with unspecified goal Medical History diabetes Medical History hypercholesterolemia Surgical History Hernia repair 03/2014 Surgical History Oral Surgery 06/2014 Hospitalization History early 1999 he had inpatient stay at [facility] [place] when he was experiencing SI
--- OUTSIDE RECORDS SUMMARY | 2017-08-06 10:28 | XMS REPORT ---
Author Author SOFIA SANTIAGO Organization 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 966258004 Problem Open wound, lower leg, left, initial encounter S81.802A Active 070675973 Problem Type 2 diabetes mellitus without complication, without long-term current use of insulin E11.9 Active 730484600 Problem Mixed hyperlipidemia E78.2 Active 205603390 Problem Bipolar disorder, in partial remission, most recent episode depressed F31.75 Active 16953762 ALLERGIES Unknown Allergies SOCIAL HISTORY No smoking Hx information available PLAN OF CARE Activity Details Follow Up 4 Weeks Reason:depression VITAL SIGNS MEDICATIONS Unknown Medications RESULTS No Results PROCEDURES Procedure Date Ordered Related Diagnosis Body Site [facility] VISIT MENTAL HEALTH ESTAB PT Mar 20, 2016 Psychotherapy, patient &/family, 30 minutes, established patient Mar 20, 2016 IMMUNIZATIONS No Known Immunizations
--- OUTSIDE RECORDS SUMMARY | 2017-08-06 10:28 | XMS REPORT ---
Author Author CHIARA RODRIGUEZ [facility] eClinicalWorks Address Unknown Phone Unavailable Care Team Providers Care Radiology Interventional Physician Name Role Phone CHIARA RODRIGUEZ CP Unavailable Allergies, Adverse Reactions, Alerts Substance Reaction Event Type N.K.D.A. 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 Active Problem Essential hypertension, hypertension with unspecified goal I10 Active Assessment Essential hypertension, hypertension with unspecified goal I10 Active Assessment Knee pain M25.569 Active Medications Medication Code System Code Instructions Start Date End Date Status Dosage Naproxen [facility] [address]-87 500 MG Orally 2 times a day,pc July 11, 2015 1 Latuda [facility] [address]-92 40 MG Orally Once a day Dec 29, 2014 1 tablet with food Lisinopril [facility] [address]-52 10 MG Orally Once a day June 22, 2015 1 tablet Procedures Procedure Coding System Code Date VENIPUNCT, ROUTINE* CPT-4 89902 July 11, 2015 [facility] VISIT ESTABLISHED PATIENT CPT-4 G0467 July 11, 2015 LAB NOT BILLED BY [facility] CPT-4 NOBLL July 11, 2015 Office Visit, Est Pt., Level 3 CPT-4 79006 July 11, 2015 Vital Signs Date/Time: July 11, 2015 Temperature 98.6 F Weight 311 lbs Height 71 in BMI 43.37 Index Blood Pressure Diastolic 82 mmHg Blood Pressure Systolic 146 mmHg Cardiac Monitoring Heart Rate 98 bpm Results Name Result Date Reference Range Unit Abnormality Flag ROUTINE VENIPUNCTURE CMP ----Sodium, Serum 137 20150711 134-144 mmol/L ----BUN/Creatinine Ratio 17 20150711 9-20 ----Chloride, Serum 96 20150711 97-108 mmol/L L ----Potassium, Serum 4.4 20150711 3.5-5.2 mmol/L ----Calcium, Serum 10.0 42060249 8.7-10.2 mg/dL ----Protein, Total, Serum 6.9 77966730 6.0-8.5 g/dL ----Carbon Dioxide, Total 22 92457695 18-29 mmol/L ----A/G Ratio 1.9 49768852 1.1-2.5 ----eGFR If NonAfricn Am 90 16758244 >59 mL/min/1.73 ----Bilirubin, Total 0.6 20496497 0.0-1.2 mg/dL ----eGFR If Africn Am 104 50009420 >59 mL/min/1.73 ----BUN 16 37645825 6-24 mg/dL ----Albumin, Serum 4.5 40189253 3.5-5.5 g/dL ----Globulin, Total 2.4 56349506 1.5-4.5 g/dL ----Creatinine, Serum 0.95 80189772 0.76-1.27 mg/dL ----ALT (SGPT) 37 37258622 0-44 IU/L ----Glucose, Serum 227 69617324 65-99 mg/dL H ----Alkaline Phosphatase, S 75 48076677 39-117 IU/L ----AST (SGOT) 22 79915558 0-40 IU/L Summary Purpose eClinicalWorks Submission
--- OUTSIDE RECORDS SUMMARY | 2017-08-06 10:28 | XMS REPORT ---
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 Active 910424463 Problem Venous insufficiency I87.2 Active 17208854 Problem Type 2 diabetes mellitus without complication, without long-term current use of insulin E11.9 Active 400357409 Problem Bipolar I disorder with depression F31.9 Active 51192823 Problem Methamphetamine use disorder, 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 361478259 Problem Open wound, lower leg, left, initial encounter S81.802A Active 260884559 Problem Essential hypertension I10 Active 31373961 Problem Mixed hyperlipidemia E78.2 Active 578284527 Problem Bipolar disorder, in partial remission, most recent episode depressed F31.75 Active 20379787 ALLERGIES No Information SOCIAL HISTORY Never Assessed PLAN OF CARE Activity Details Follow Up 3 Months Reason: VITAL SIGNS Height 71 in 2016-05-30 Weight 296.4 lbs 2016-05-30 Heart Rate 88 bpm 2016-05-30 Respiratory Rate 20 2016-05-30 BMI 41.33 kg/m2 2016-05-30 Blood pressure systolic 146 mmHg 2016-05-30 Blood pressure diastolic 82 mmHg 2016-05-30 MEDICATIONS Medication Instructions Dosage Frequency Start Date End Date Duration Status Latuda 40 MG Orally daily at suppertime 1 tablet with food 90 days Active RESULTS No Results PROCEDURES Procedure Date Ordered Result Body Site [facility] VISIT ESTABLISHED PATIENT May 30, 2016 IMMUNIZATIONS No Known Immunizations MEDICAL (GENERAL) HISTORY Type Description Date Medical History Bipolar disorder, current episode manic without psychotic features, moderate Medical History Essential hypertension, hypertension with unspecified goal Medical History diabetes Medical History hypercholesterolemia Surgical History Hernia repair 03/2014 Surgical History Oral Surgery 06/2014 Hospitalization History early 1999 he had inpatient stay at [facility] when he was experiencing SI
--- OUTSIDE RECORDS SUMMARY | 2017-08-06 10:28 | XMS REPORT ---
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 Active 152244300 Problem Type 2 diabetes mellitus without complication, without long-term current use of insulin E11.9 Active 376763851 Problem Amphetamine use disorder, 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 75209108 Problem PVD (peripheral vascular disease) I73.9 Active 401594487 Problem Mixed hyperlipidemia E78.2 Active 528382990 Problem Bipolar disorder, in partial remission, most recent episode depressed F31.75 Active 98117589 Problem Bipolar I disorder with depression F31.9 Active 23770652 Problem Methamphetamine use disorder, 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 285487372 ALLERGIES No Information ENCOUNTERS Encounter Location Date Diagnosis [place] [id number] [place] [address] 17449- 5803 Jun, [facility] [address] [place] [id number] [place] [address] 63862- 5066 Jun, [facility] [id number] [place] [address] 00455- 5578 Jun, [facility] [address] [id number] [place] [address] 91092- 2774 May, Bipolar I disorder with depression F31.9 and Amphetamine use disorder, 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 [facility] [id number] [place] [address] 90271- 7048 May, Bipolar I disorder with depression F31.9 and Amphetamine use disorder, 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 [facility] [id number] [place] [address] 90580- 6687 May, [facility] [id number] [place] [address] 10400- 8779 14 May, 2017 BMI 40.0-44.9, adult Z68.41 ; Methamphetamine use disorder, 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 and Bipolar I disorder with depression F31.9 [facility] [id number] [place] [address] 14525- 1232 Mar, [facility] [address] [id number] [place] [address] 81062- 1563 Mar, Methamphetamine use disorder, 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 and Bipolar I disorder with depression F31.9 [place] [address] [id number] [place] [address] 22701- 0130 Mar, Methamphetamine use disorder, 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 ; Bipolar I disorder with depression F31.9 and BMI 40.0-44.9, adult Z68.41 [facility] [address] [id number] [place] [address] 46357- 2990 Mar, [facility]ALK [facility] [address] [address] Feb, Cough R05 ; Other viral agents as the cause of diseases classified elsewhere B97.89 ; Acute upper respiratory infection, unspecified J06.9 and BMI 40.0-44.9, adult Z68.41 [facility] [address], [place] [address] 3949 Feb, [place] [address] [place] [id number] [place] [address] 78788- 6193 Feb, Methamphetamine use disorder, 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 and Bipolar I disorder with depression F31.9 [facility] [id number] [place] [address] 21706- 3683 Feb, Methamphetamine use disorder, 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 ; Bipolar I disorder with depression F31.9 and BMI 40.0-44.9, adult Z68.41 [place] [address] 72545- 7696 Feb, [place] [address] 35702- 0642 Jan, Type 2 diabetes mellitus without complication, without long- term current use of insulin E11.9 [facility] [address] [address] Jan, BMI 40.0-44.9, adult Z68.41 and Open wound of left lower leg, subsequent encounter S81.802D [facility] [place] [address] [address]165 -3473 16 Jan, 2017 Abrasion T14.8XXA ; Encounter for immunization Z23 and PVD (peripheral vascular disease) I73.9 [place] [address] 06864- 4560 15 Jan, 2017 [place] [address] 24270- 3964 Jan, [place] [address] 22065- 9881 Jan, Bipolar I disorder with depression F31.9 and Other stimulant dependence, 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 [place] [address] [place] [id number] [place] [address] 85923- 3663 2016 Type 2 diabetes mellitus without complication, without long- term current use of insulin E11.9 and Essential hypertension I10 [place] [address] 17392- 5874 28 Nov, 2016 Methamphetamine use disorder, 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 and Bipolar I disorder with depression F31.9 [place] [address] 22327- 2919 26 Nov, 2016 Bipolar I disorder with depression F31.9 and Other stimulant dependence, 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 [facility] [id number] [place] [address] 48291 -9372 14 Nov, 2016 Bilateral impacted cerumen H61.23 [facility] [id number] [place] [address] 19723- 8551 12 Nov, 2016 Bipolar I disorder with depression F31.9 and Other stimulant dependence, 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 [facility] [address] [id number] [place] [address] 08630- 8843 11 Nov, 2016 [facility] [id number] [place] [address] 22598- 6210 Nov, [facility] [id number] [place] [address] 89202- 8057 Oct, Bipolar I disorder with depression F31.9 and Adderall use disorder, moderate, dependence F15.20 [facility] [address] [id number] [place] [address] 13587- 3684 Oct, Bipolar I disorder with depression F31.9 and Methamphetamine use disorder, 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 [facility] [id number] [place] [address] 61840- 9378 Oct, [facility] [address] [id number] [place] [address] 13490- 0253 Sep, [facility] [id number] [place] [address] 84309- 2164 Sep, Bipolar I disorder with depression F31.9 [facility] [id number] [place] [address] 83130- 4946 Sep, Bipolar I disorder with depression F31.9 and Methamphetamine use disorder, 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 [facility] [address] [id number] [place] [address] 34955- 3291 Sep, Bipolar I disorder with depression F31.9 and Other stimulant dependence, 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 [facility] [id number] [place] [address] 68767- 4098 Sep, [facility] [id number] [place] [address] 35775- 9223 Sep, [facility] [address] [id number] [place] [address] 54426- 6347 Sep, Tick bite, initial encounter W57.XXXA [facility] [id number] [place] [address] 38949- 2281 Aug, [facility] [id number] [place] [address] 46210- 1570 Aug, [facility] [address] [place] [id number] [place] [address] 54860- 6203 Aug, Bipolar I disorder with depression F31.9 and Other stimulant dependence, 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 [facility] [address] [place] [address] Aug, [facility] [address] [place] [id number] [place] [address] 47164- 7691 Aug, [facility] [address] [place] [address] Aug, [facility] [address] [place] [id number] [place] [address] 70282- 8330 Aug, [facility] [address] [address] [id number] [place] [address] 29600- 8898 Aug, Elevated glucose R73.09 ; Type 2 diabetes mellitus without complication, without long-term current use of insulin E11.9 ; Periumbilical abdominal pain R10.33 and Mixed hyperlipidemia E78.2 [facility] [address] [place] [address] 06953 -6009 Aug, Periumbilical abdominal pain R10.33 and Tick bite, initial encounter W57.XXXA [facility] [address] [id number] [place] [address] 11019- 3092 Aug, Bipolar I disorder with depression F31.9 [facility] [address] [address] [id number] [place] [address] 47147- 2626 July, Bipolar I disorder with depression F31.9 and Other stimulant dependence, 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 [facility] [address], [place] [address]- 8369 July, [facility] [address] [place] [address] July, [facility] [id number] [place] [address] 13508- 0243 July, [facility] [id number] [place] [address] 77486- 5872 Jun, Bipolar I disorder with depression F31.9 [facility] [address] [place] [address] 61939- 6060 Jun, Elevated glucose R73.09 and Other chcf (current) drug therapy Z79.899 [facility] [address] [place] [address] 42080- 1353 Jun, Bipolar I disorder with depression F31.9 and Other chcf (current) drug therapy Z79.899 [facility] [address], [place] [address]- 8334 Jun, [facility] [address] [place] [address] 32179- 7680 Jun, Bipolar disorder, in partial remission, most recent episode depressed F31.75 and Other stimulant dependence, 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 [facility] [address] [id number] [place] [address] Jun [facility] [address] [place] [id number] [address] May, Other viral agents as the cause of diseases classified elsewhere B97.89 and Acute upper respiratory infection, unspecified J06.9 [facility] [id number], [place] [address]- 9616 May, Bipolar disorder, in partial remission, most recent episode depressed F31.75 and Other stimulant dependence, 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 [place] [address], [place] [address]- 9490 02 May, 2016 Bipolar 1 disorder, mixed, full remission F31.78 and Methamphetamine abuse in remission F15.10 [place] [address], [place] [address]- 0709 Feb, Bipolar affective disorder, remission status unspecified F31.[address] [id number] [place] [address] Feb [place] [address] [place] [id number] [place] [address] 21496- 5627 Feb, Dental examination Z01.20 [place] [address] [place] [id number] [place] [address] 58342- 5536 Jan, Bipolar 1 disorder, depressed, partial remission F31.75 [place] [address] [place] [id number] [place] [address] 23424- 5098 12 Dec, 2015 Bipolar 1 disorder, mixed, full remission F31.78 and Other chcf (current) drug therapy Z79.899 [place] [address] [place] [id number] [place] [address] 49582- 5901 11 Dec, 2015 Bipolar 1 disorder, mixed, full remission F31.78 and 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 [place] [address] [place] [address] 64382- 7779 Oct, [place] [address] [place] [id number] [place] [address] 14843- 6960 Oct, Type 2 diabetes mellitus without complication, without long- term current use of insulin E11.9 ; Bipolar disorder, current episode manic without psychotic features, moderate F31.12 ; Essential hypertension I10 ; Venous insufficiency I87.2 and Open wound, lower leg, left, initial encounter S81.802A [place] [address] [place] [address] 10105- 6360 Oct, [place] [address] [place] [id number] [place] [address] 97060- 0968 Oct, Bipolar affective disorder, remission status unspecified F31.9 [place] [address] [place] [id number] [place] [address] 15529- 9757 Oct, [facility] [address] [place] [id number] [place] [address] 62209- 6488 Sep, [place] [address] [place] [id number] [place] [address] 58136- 3443 Sep, [place] [address] [place] [id number] [place] [address] 86020- 7211 Sep, Type 2 diabetes mellitus without complication, without long- term current use of insulin E11.9 ; Essential hypertension I10 and Venous insufficiency I87.2 [facility] [place] [address] [place] [id number] [place] [address] 40233 -1987 Sep, Cellulitis of lower extremity, unspecified laterality L03.119 and Peripheral vascular disease of lower extremity I73.9 [place] [address] [place] [id number] [place] [address] 75091- 4848 Aug, [place] [address] [place] [id number] [place] [address] 39403- 6052 Aug, Bipolar affective disorder, remission status unspecified F31.9 [facility] IN [facility] [address] [place] [id number] [place] [address] 08133 -1431 July, Cellulitis, unspecified cellulitis site L03.90 [place] [address] [place] [id number] [place] [address] 02004- 4434 Jun, Bipolar disorder, current episode manic without psychotic features, moderate F31.12 and Other stimulant dependence, 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 [place] [address] [place] [id number] [place] [address] 25327- 8578 Jun, Essential hypertension, hypertension with unspecified goal I10 and Knee pain M25.569 [place] [address] [place] [id number] [place] [address] 34985- 8338 May, [facility] [address], [place] [address]- 2654 May, Bipolar disorder, current episode manic without psychotic features, moderate F31.12 and Essential hypertension, hypertension with unspecified goal I10 [facility] [address] [place] [id number] [place] [address] 58878- 3230 May, Bipolar disorder, current episode manic without psychotic features, moderate F31.12 and Other stimulant dependence, 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 [facility] [address] [place] [id number] [place] [address] 87861- 2427 Dec, [facility] [address] [place] [id number] [place] [address] 34180- 3858 Dec, Bipolar 1 disorder, mixed, full remission F31.78 [facility] [address] [place] [id number] [place] [address] 19496- 5819 Jun, [facility] [address] [place] [id number] [place] [address] 60043- 9293 Jun, [facility] [address] [place] [id number] [place] [address] 59658- 9172 May, [facility] [address] [place] [id number] [place] [address] 47013- 0386 May, [facility] [address] [place] [id number] [place] [address] 18258- 9943 May, [facility] [address] [place] [id number] [place] [address] 42124- 1408 May, [facility] [address] [place] [address] 44237- 4104 May, [facility] [address] [place] [id number] [place] [address] 49734- 7482 May, [facility] [address], [place] [address]- 7038 Mar, [facility] [address] [place] [id number] [place] [address] 36845- 2395 Mar, [facility] [place] [facility] [address] [id number] [place] [address]- 2106 Feb, [facility] [place] [facility] [address] [id number] [place] [address]- 5201 Jan, [facility] [place] [facility] [address] [id number] [place] [address]- 9486 Jan, [facility] [place] [facility] [address] [id number] [place] [address]- 3528 Jan, [facility] [place] [facility] [address] [id number] [place] [address]- 7669 Jan, [facility] [place] [facility] [address] [id number] [place] [address]- 8693 Nov, [facility] [place] [facility] [address] [id number] [place] [address]- 1635 Nov, [facility] [place] [facility] [address] [id number] [place] [address]- 5070 Oct, [facility] [place] [facility] [address] [id number] [place] [address]- 1931 Oct, [facility] [place] [facility] [address] [id number] [place] [address]- 2459 Sep, [facility] [place] [facility] [address] [id number] [place] [address]- 8291 Sep, [facility] [place] [facility] [address] [id number] [place] [address]- 2046 Sep, [facility] [place] [facility] [address] [id number] [place] [address]- 9716 Sep, [facility] [place] [facility] [address] [id number] [place] [address]- 3021 July, [facility] [place] [facility] [address] [id number] [place] [address]- 9848 July, [facility] [place] [facility] [address] [id number] [place] [address]- 0100 July, [facility] [place] [facility] [address] [id number] [place] [address]- 1548 July, [facility] [place] [facility] [address] [id number] [place] [address]- 3644 July, [facility] [place] [facility] [address] [id number] [place] [address]- 3044 July, [facility] [place] [facility] [address] [id number] [place] [address]- 7331 July, [facility] [place] [facility] [address] [id number] [place] [address]- 7525 July, [facility] [place] [facility] [address] [id number] [place] [address]- 1823 Jun, [facility] [place] [facility] [address] [id number] [place] [address]- 8735 Jun, [facility] [place] [facility] [address] [id number] [place] [address]- 5826 Jun, [facility] [place] [facility] [address] [id number] [place] [address]- 3614 Jun, [facility] [place] [facility] [address] [id number] [place] [address]- 4225 May, [facility] [place] [facility] [address] [id number] [place] [address]- 5095 May, [facility] [place] [facility] [address] [id number] [place] [address]- 7570 May, [facility] [place] [facility] [address] [id number] [place] [address]- 7173 May, [facility] [place] [facility] [address] [id number] [place] [address]- 2156 May, [facility] [place] [facility] [address] [id number] [place] [address]- 2481 May, [facility] [place] [facility] [address] [id number] [place] [address]- 4623 May, [facility] [place] [facility] [address] [id number] [place] [address]- 7136 May, [facility] [place] [facility] [address] [id number] [place] [address]- 9186 May, [facility] [place] [facility] [address] [id number] [place] [address]- 8920 May, [facility] [place] [facility] [address] [id number] [place] [address]- 4860 May, [facility] [place] [facility] [address] [id number] [place] [address]- 4234 Mar, [facility] [place] [facility] [address] [id number] [place] [address]- 6960 Mar, [facility] [place] [facility] [address] [id number] [place] [address]- 8487 Mar, [facility] [place] [facility] [address] [id number] [place] [address]- 7149 Mar, [facility] [place] [facility] [address] [facility] [id number] [place] [address]- 8582 Feb, [facility] [place] [facility] [address] [id number] [place] [address]- 7089 Feb, [facility] [place] [facility] [address] [id number] [place] [address]- 3179 Feb, [facility] [place] [facility] [address] [id number] [place] [address]- 0451 Feb, [facility] [place] [facility] [address] [id number] [place] [address]- 5842 Jan, [facility] [place] [facility] [address] [id number] [place] [address]- 9828 Jan, [facility] [place] [facility] [id number], [place] [address]- 7296 Jan, [facility] [id number], [place] [address]- 1140 Jan, [facility] [address] [facility] [id number] [address]- 9310 Mar, [facility] [id number], [place] [address]- 9318 Mar, [facility] [address], [place] [address]- 3469 Feb, [facility] [address] [address]- 2600 Jan, [facility] [address] [place] [address]- 9991 Dec, [facility] [address], [place] [address]- 3994 Nov, [facility] [address], [place] [address]- 7118 Oct, [facility] [id number] [address]- 4236 Sep, [facility] [id number], [place] [address]- 1601 Feb, IMMUNIZATIONS No Known Immunizations SOCIAL HISTORY Never Assessed REASON FOR VISIT [facility]- PLAN OF CARE VITAL SIGNS MEDICATIONS Unknown Medications RESULTS No Results PROCEDURES Procedure Date Ordered Result Body Site Alcohol and/or drug services September 24, 2016 INSTRUCTIONS MEDICATIONS ADMINISTERED No Known Medications MEDICAL (GENERAL) HISTORY Type Description Date Medical History Bipolar disorder, current episode manic without psychotic features, moderate Medical History Essential hypertension, hypertension with unspecified goal Medical History diabetes Medical History hypercholesterolemia Surgical History Hernia repair 03/2014 Surgical History Oral Surgery 06/2014 Hospitalization History early 1999 he had inpatient stay at [facility] when he was experiencing SI
--- OUTSIDE RECORDS SUMMARY | 2017-08-06 10:28 | XMS REPORT ---
Author Author CHIARA RODRIGUEZ Organization 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 Active 241101911 Problem Type 2 diabetes mellitus without complication, without long-term current use of insulin E11.9 Active 129220209 Problem Amphetamine use disorder, 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 [address] [id number] [place] [address] 68032- 6959 Jun, [facility] [id number] [place] [address] 48879- 3071 Jun, 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 [id number] [place] [address] 69034- 0799 May, 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 [id number] [place] [address] 24695- 1030 Mar, 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 [address] [place] [id number] [place] [address] 82222- 0392 Mar, [facility] [address] [address] Feb, Cough R05 ; Other viral agents as the cause of diseases classified elsewhere B97.89 ; Acute upper respiratory infection, unspecified J06.9 and BMI 40.0-44.9, adult Z68.41 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 ; Bipolar I disorder with depression F31.9 and BMI 40.0-44.9, adult Z68.41 [place] [address] 61711- 0012 Feb, [place] [address] 96785- 2974 Jan, Type 2 diabetes mellitus without complication, without long- term current use of insulin E11.9 [facility] [address] 48113 -3383 Jan, BMI 40.0-44.9, adult Z68.41 and Open wound of left lower leg, subsequent encounter S81.802D [facility] [place] [address] 74529 -2174 16 Jan, 2017 Abrasion T14.8XXA ; Encounter for immunization Z23 and PVD (peripheral vascular disease) I73.9 [place] [address] 08925- 2668 15 Jan, 2017 [place] [address] 99145- 9371 Jan, [place] [address] 75568- 9690 Jan, Bipolar I disorder with depression F31.9 and Other stimulant dependence, 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 [place] [address] [place] [id number] [place] [address] 11126- 1644 2016 Type 2 diabetes mellitus without complication, without long- term current use of insulin E11.9 and Essential hypertension I10 [place] [address] 68204- 4587 28 Nov, 2016 Methamphetamine use disorder, 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 [address] [id number] [place] [address] 12174- 2598 11 Nov, 2016 [facility] [address] [id number] [place] [address] 46394- 9895 Nov, [facility] [address] [id number] [place] [address] 37623- 6372 Oct, Bipolar I disorder with depression F31.9 and Adderall use disorder, moderate, dependence F15.20 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 [address] [id number] [place] [address] 29286- 1284 Oct, [facility] [id number] [place] [address] 18808- 8648 Sep, [facility] [id number] [place] [address] 26641- 6355 Sep, Bipolar I disorder with depression F31.9 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 [id number] [place] [address] 41722- 3965 Sep, [facility] [id number] [place] [address] 50695- 6524 Sep, [facility] [address] [id number] [place] [address] 23061- 6413 Sep, Tick bite, initial encounter W57.XXXA [facility] [address] [place] [id number] [place] [address] 18922- 6728 Aug, [facility] [id number] [place] [address] 25456- 8449 Aug, 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 [address] [place] [id number] [place] [address] 86416- 2901 Aug, [facility] [address] [place] [address] Aug, [facility] [address] [place] [id number] [place] [address] 21417- 1522 Aug, [facility] [address] [place] [id number] [place] [address] 37428- 2142 Aug, Elevated glucose R73.09 ; Type 2 diabetes mellitus without complication, without long-term current use of insulin E11.9 ; Periumbilical abdominal pain R10.33 and Mixed hyperlipidemia E78.2 [facility] [id number] [place] [address] 74589 -7587 Aug, Periumbilical abdominal pain R10.33 and Tick bite, initial encounter W57.XXXA [facility] [address] [place] [place] [id number] [place] [address] 51208- 2668 Aug, Bipolar I disorder with depression F31.9 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 [address] [address]- 9346 July, [facility] [address] [place] [address] July, [facility] [id number] [place] [address] 59641- 7557 July, [facility] [id number] [place] [address] 10728- 6911 Jun, Bipolar I disorder with depression F31.9 [facility] [id number] [place] [address] 29872- 3663 Jun, Elevated glucose R73.09 and Other custodial (current) drug therapy Z79.899 [facility] [id number] [place] [address] 06462- 6128 Jun, Bipolar I disorder with depression F31.9 and Other custodial (current) drug therapy Z79.899 [facility] [address] [address] 4147 Jun, 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 [place] [address] [address]- 4473 02 May, 2016 Bipolar 1 disorder, mixed, full remission F31.78 and Methamphetamine abuse in remission F15.10 [place] [address] [address]- 5298 Feb, Bipolar affective disorder, remission status unspecified F31.[address] [id number] [place] [address] Feb [place] [address] [place] [id number] [place] [address] 49437- 7918 Feb, Dental examination Z01.20 [place] [address] [place] [id number] [place] [address] 51059- 0513 Jan, Bipolar 1 disorder, depressed, partial remission F31.75 [place] [address] [place] [id number] [place] [address] 12974- 3099 12 Dec, 2015 Bipolar 1 disorder, mixed, full remission F31.78 and Other custodial (current) drug therapy Z79.899 [place] [address] [place] [id number] [place] [address] 27405- 2297 11 Dec, 2015 Bipolar 1 disorder, mixed, full remission F31.78 and 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 [place] [id number] [place] [address] 01733- 4334 Oct, [place] [address] [place] [id number] [place] [address] 82090- 8902 Oct, Type 2 diabetes mellitus without complication, without long- term current use of insulin E11.9 ; Bipolar disorder, current episode manic without psychotic features, moderate F31.12 ; Essential hypertension I10 ; Venous insufficiency I87.2 and Open wound, lower leg, left, initial encounter S81.802A [place] [id number] [place] [address] 39190- 9317 Oct, [place] [address] [place] [id number] [place] [address] 15573- 0082 Oct, Bipolar affective disorder, remission status unspecified F31.9 [place] [address] [place] [id number] [place] [address] 20081- 5366 Oct, [facility] [id number] [place] [address] 89380- 7548 Sep, [place] [address] [place] [id number] [place] [address] 66569- 0545 Sep, [place] [address] [place] [id number] [place] [address] 76731- 3643 Sep, Type 2 diabetes mellitus without complication, without long- term current use of insulin E11.9 ; Essential hypertension I10 and Venous insufficiency I87.2 [facility] [place] [address] [place] [id number] [place] [address] 54899 -0731 Sep, Cellulitis of lower extremity, unspecified laterality L03.119 and Peripheral vascular disease of lower extremity I73.9 [place] [address] [place] [id number] [place] [address] 67930- 8557 Aug, [place] [address] [place] [id number] [place] [address] 77506- 9293 Aug, Bipolar affective disorder, remission status unspecified F31.9 [facility] [id number] [place] [address] 87834 -0169 July, Cellulitis, unspecified cellulitis site L03.90 [place] [address] [place] [id number] [place] [address] 99730- 2278 Jun, Bipolar disorder, current episode manic without psychotic features, moderate F31.12 and Other stimulant dependence, 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 [address] [address]- 3787 May, Bipolar disorder, current episode manic without psychotic features, moderate F31.12 and Essential hypertension, hypertension with unspecified goal I10 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 [address] [place] [place] [id number] [place] [address] 84731- 8511 Dec, [facility] [address] [id number] [place] [address] 88574- 4512 Dec, Bipolar 1 disorder, mixed, full remission F31.78 [facility] [address] [place] [place] [id number] [place] [address] 20626- 0418 Jun, [facility] [id number] [place] [address] 67597- 9917 Jun, [facility] [id number] [place] [address] 22764- 7970 May, [facility] [id number] [place] [address] 67286- 5106 May, [facility] [id number] [place] [address] 36186- 3627 May, [facility] [id number] [place] [address] 67625- 9616 May, [facility] [id number] [place] [address] 10382- 7459 May, [facility] [id number] [place] [address] 05106- 6702 May, [facility] [address] [address]- 7965 Mar, [facility] [id number] [place] [address] 17499- 7372 Mar, [facility] [place] [facility] [address] [id number] [place] [address]- 5870 Feb, [facility] [place] [facility] [address] [id number] [place] [address]- 4533 Jan, [facility] [place] [facility] [address] [id number] [place] [address]- 6233 Jan, [facility] [place] [facility] [address] [id number] [place] [address]- 1075 Jan, [facility] [place] [facility] [address] [id number] [place] [address]- 7671 Jan, [facility] [place] [facility] [address] [id number] [place] [address]- 4964 Nov, [facility] [place] [facility] [address] [id number] [place] [address]- 2243 Nov, [facility] [place] [facility] [address] [id number] [place] [address]- 1222 Oct, [facility] [place] [facility] [address] [id number] [place] [address]- 8180 Oct, [facility] [place] [facility] [address] [id number] [place] [address]- 6418 Sep, [facility] [place] [facility] [address] [id number] [place] [address]- 6363 Sep, [facility] [place] [facility] [address] [id number] [place] [address]- 5509 Sep, [facility] [place] [facility] [address] [id number] [place] [address]- 5794 Sep, [facility] [place] [facility] [address] [id number] [place] [address]- 3483 July, [facility] [place] [facility] [address] [id number] [place] [address]- 3217 July, [facility] [place] [facility] [address] [id number] [place] [address]- 9844 July, [facility] [place] [facility] [address] [id number] [place] [address]- 5762 July, [facility] [place] [facility] [address] [id number] [place] [address]- 0466 July, [facility] [place] [facility] [address] [id number] [place] [address]- 1157 July, [facility] [place] [facility] [address] [id number] [place] [address]- 4159 July, [facility] [place] [facility] [address] [id number] [place] [address]- 1656 July, [facility] [place] [facility] [address] [id number] [place] [address]- 3297 Jun, [facility] [place] [facility] [address] [id number] [place] [address]- 3205 Jun, [facility] [place] [facility] [address] [id number] [place] [address]- 4924 Jun, [facility] [place] [facility] [address] [id number] [place] [address]- 2340 Jun, [facility] [place] [facility] [address] [id number] [place] [address]- 1961 May, [facility] [place] [facility] [address] [id number] [place] [address]- 5673 May, [facility] [place] [facility] [address] [id number] [place] [address]- 3501 May, [facility] [place] [facility] [address] [id number] [place] [address]- 7966 May, [facility] [place] [facility] [address] [id number] [place] [address]- 2286 May, [facility] [place] [facility] [address] [id number] [place] [address]- 3694 May, [facility] [place] [facility] [address] [id number] [place] [address]- 3618 May, [facility] [place] [facility] [address] [id number] [place] [address]- 0666 May, [facility] [place] [facility] [address] [id number] [place] [address]- 9546 May, [facility] [place] [facility] [address] [id number] [place] [address]- 1372 May, [facility] [place] [facility] [address] [id number] [place] [address]- 7002 May, [facility] [place] [facility] [address] [id number] [place] [address]- 5076 Mar, [facility] [place] [facility] [address] [id number] [place] [address]- 3347 Mar, [facility] [place] [facility] [address] [id number] [place] [address]- 9168 Mar, [facility] [place] [facility] [address] [id number] [place] [address]- 9589 Mar, [facility] [place] [facility] [address] [facility] [id number] [place] [address]- 7575 Feb, [facility] [place] [facility] [address] [id number] [place] [address]- 0118 Feb, [facility] [place] [facility] [address] [id number] [place] [address]- 0320 Feb, [facility] [place] [facility] [address] [id number] [place] [address]- 0131 Feb, [facility] [place] [facility] [address] [id number] [place] [address]- 0293 Jan, [facility] [place] [facility] [address] [id number] [place] [address]- 3317 Jan, [facility] [place] [facility] [id number], [place] [address]- 6836 Jan, [facility] [id number], [place] [address] 4[address] Jan, [facility] [address] [facility] [id number] [address] Mar, [facility] [address] [facility] [id number] [address] Mar, [facility] [address] [facility] [id number] [address] Feb, [facility] [id number] [address] Jan, [facility] [address] [facility] [id number], [place] [address] Dec, [facility] [id number] [address] Nov, [facility] [id number] [address] Oct, [facility] [id number] [address] Sep, [facility] [address] [id number], [place] [address] Feb, IMMUNIZATIONS No Known Immunizations SOCIAL HISTORY Never Assessed REASON FOR VISIT DM ed PLAN OF CARE VITAL SIGNS MEDICATIONS Medication Instructions Dosage Frequency Start Date End Date Duration Status Glucocard Expression Monitor w/Device as directed Aug, Active Glucocard Expression Test - DX E11.9 2 times a day- 3 times weekly. test blood sugar Aug, Active RESULTS No Results PROCEDURES No Known [...] early 1999 he had inpatient stay at [facility] when he was experiencing SI
--- OUTSIDE RECORDS SUMMARY | 2017-08-06 10:28 | XMS REPORT ---
Author Author APOLLO SANTIAGO eClinicalWorks Address Unknown Phone Unavailable Care Team Providers Care Cotton Weigher Name Role Phone AOPLLO SANTIAGO CP Unavailable Allergies No Known Allergies Problems Problem Type Condition Code Onset Dates Condition Status Assessment Bipolar 1 disorder, mixed, full remission F31.78 Active Assessment Other penitentiary (current) drug therapy Z79.899 Active Problem Type [...] disorder, remission status unspecified F31.9 Active Medications No Known Medications Procedures Procedure Coding System Code Date VENIPUNCT, ROUTINE* CPT-4 38553 Jan 10, 2016 [facility] NOBLL Jan 10, 2016 Results Name Result Date Reference Range Unit Abnormality Flag ROUTINE VENIPUNCTURE Summary Purpose eClinicalWorks Submission
--- OUTSIDE RECORDS SUMMARY | 2017-08-06 10:28 | XMS REPORT ---
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 Active 751945786 Problem Venous insufficiency I87.2 Active 25016844 Problem Type 2 diabetes mellitus without complication, without long-term current use of insulin E11.9 Active 731355034 Problem Bipolar I disorder with depression F31.9 Active 29962602 Problem Methamphetamine use disorder, 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 904868324 Problem Open wound, lower leg, left, initial encounter S81.802A Active 930107295 Problem Essential hypertension I10 Active 79472750 Problem Mixed hyperlipidemia E78.2 Active 808363247 Problem Bipolar disorder, in partial remission, most recent episode depressed F31.75 Active 86517291 ALLERGIES No Information SOCIAL HISTORY Never Assessed PLAN OF CARE VITAL SIGNS MEDICATIONS Unknown Medications RESULTS No Results PROCEDURES No Known procedures IMMUNIZATIONS No Known Immunizations MEDICAL (GENERAL) HISTORY Type Description Date Medical History Bipolar disorder, current episode manic without psychotic features, moderate Medical History Essential hypertension, hypertension with unspecified goal Medical History diabetes Medical History hypercholesterolemia Surgical History Hernia repair 03/2014 Surgical History Oral Surgery 06/2014 Hospitalization History early 1999 he had inpatient stay at [facility] when he was experiencing SI
--- OUTSIDE RECORDS SUMMARY | 2017-08-06 10:29 | XMS REPORT ---
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 Active 537888644 Problem Type 2 diabetes mellitus without complication, without long-term current use of insulin E11.9 Active 438965862 Problem Amphetamine use disorder, 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 24342636 Problem PVD (peripheral vascular disease) I73.9 Active 999547313 Problem Mixed hyperlipidemia E78.2 Active 572194841 Problem Bipolar disorder, in partial remission, most recent episode depressed F31.75 Active 75541853 Problem Bipolar I disorder with depression F31.9 Active 14130796 Problem Methamphetamine use disorder, 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 714983887 ALLERGIES No Known Allergies ENCOUNTERS Encounter Location Date Diagnosis [place] [id number] [place] [address] 52256- 7154 Jun, [facility] [id number] [place] [address] 64389- 2292 Jun, [facility] [id number] [place] [address] 01542- 1562 Jun, [place] [id number] [place] [address] 68737- 0433 May, Bipolar I disorder with depression F31.9 and Amphetamine use disorder, 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 [facility] [id number] [place] [address] 28256- 1864 May, Bipolar I disorder with depression F31.9 and Amphetamine use disorder, 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 [facility] [address] [place] [address] 25133- 4607 May, [facility] [id number] [place] [address] 68242- 0620 May, BMI 40.0-44.9, adult Z68.41 ; Methamphetamine use disorder, 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 and Bipolar I disorder with depression F31.9 [facility] [address] [place] [address] 77213- 7836 Mar, [facility] [id number] [place] [address] 84150- 1956 Mar, Methamphetamine use disorder, 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 and Bipolar I disorder with depression F31.9 [place] [id number] [place] [address] 71277- 7583 Mar, Methamphetamine use disorder, 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 ; Bipolar I disorder with depression F31.9 and BMI 40.0-44.9, adult Z68.41 [place] [address] [place] [id number] [place] [address] 09602- 0532 Mar, [facility] [address] [place] [address] 73242 -2778 Feb, Cough R05 ; Other viral agents as the cause of diseases classified elsewhere B97.89 ; Acute upper respiratory infection, unspecified J06.9 and BMI 40.0-44.9, adult Z68.41 [facility] [address] [address] 3615 Feb, [place] [address] [id number] [place] [address] 54834- 4494 Feb, Methamphetamine use disorder, 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 and Bipolar I disorder with depression F31.9 [facility] [address] [place] [address] 12744- 5548 Feb, Methamphetamine use disorder, 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 ; Bipolar I disorder with depression F31.9 and BMI 40.0-44.9, adult Z68.41 [place] [address] 90075- 7807 Feb, [place] [address] 29850- 3962 Jan, Type 2 diabetes mellitus without complication, without long- term current use of insulin E11.9 [facility] [address] 32450 -8492 Jan, BMI 40.0-44.9, adult Z68.41 and Open wound of left lower leg, subsequent encounter S81.802D [facility] [place] [address] 34022 -7185 16 Jan, 2017 Abrasion T14.8XXA ; Encounter for immunization Z23 and PVD (peripheral vascular disease) I73.9 [place] [address] 30555- 6204 Jan, [place] [address] 93934- 3215 Jan, [place] [address] 31483- 9276 Jan, Bipolar I disorder with depression F31.9 and Other stimulant dependence, 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 [place] [address] 49144- 3449 2016 Type 2 diabetes mellitus without complication, without long- term current use of insulin E11.9 and Essential hypertension I10 [place] [address] 26336- 3437 28 Nov, 2016 Methamphetamine use disorder, 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 and Bipolar I disorder with depression F31.9 [place] [address] 96207- 9781 Nov, Bipolar I disorder with depression F31.9 and Other stimulant dependence, 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 [facility] [id number] [place] [address] 62672 -0451 14 Nov, 2016 Bilateral impacted cerumen H61.23 [facility] [id number] [place] [address] 78171- 6759 Nov, Bipolar I disorder with depression F31.9 and Other stimulant dependence, 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 [facility] [id number] [place] [address] 37033- 1313 Nov, [facility] [id number] [place] [address] 33902- 1816 Nov, [facility] [id number] [place] [address] 07404- 3290 Oct, Bipolar I disorder with depression F31.9 and Adderall use disorder, moderate, dependence F15.20 [facility] [id number] [place] [address] 91252- 7387 Oct, Bipolar I disorder with depression F31.9 and Methamphetamine use disorder, 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 [facility] [id number] [place] [address] 04768- 4134 Oct, [facility] [id number] [place] [address] 21330- 7330 Sep, [facility] [id number] [place] [address] 59889- 5120 Sep, Bipolar I disorder with depression F31.9 [facility] [id number] [place] [address] 39711- 4902 Sep, Bipolar I disorder with depression F31.9 and Methamphetamine use disorder, 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 [facility] [id number] [place] [address] 51287- 4768 Sep, Bipolar I disorder with depression F31.9 and Other stimulant dependence, 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 [facility] [id number] [place] [address] 53362- 8659 Sep, [facility] [id number] [place] [address] 39484- 8252 Sep, [facility] [id number] [place] [address] 29923- 0087 Sep, Tick bite, initial encounter W57.XXXA [facility] [address] 69929- 8644 Aug, [facility] [address] 82698- 2579 Aug, [facility] [address] 22147- 4592 Aug, Bipolar I disorder with depression F31.9 and Other stimulant dependence, 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 [facility] [address] [place] [address] Aug, [facility] [address] 65591- 9266 Aug, [facility] [address] [place] [address] Aug, [facility] [address] 01970- 4583 Aug, [facility] [address] [id number] [place] [address] 10572- 2710 Aug, Elevated glucose R73.09 ; Type 2 diabetes mellitus without complication, without long-term current use of insulin E11.9 ; Periumbilical abdominal pain R10.33 and Mixed hyperlipidemia E78.2 [facility] [address] [place] [address] 91527 -3770 Aug, Periumbilical abdominal pain R10.33 and Tick bite, initial encounter W57.XXXA [facility] [id number] [place] [address] 55908- 9689 Aug, Bipolar I disorder with depression F31.9 [facility] [address] 78160- 9679 July, Bipolar I disorder with depression F31.9 and Other stimulant dependence, 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 [facility] [address] [place] [address] 42716- 8480 July, [facility] [address] [place] [address] July, [facility] [address] [place] [address] 14744- 9517 July, [facility] [address] [place] [address] 83407- 1275 Jun, Bipolar I disorder with depression F31.9 [facility] [address] [place] [address] 63379- 6729 Jun, Elevated glucose R73.09 and Other terminal clerk (current) drug therapy Z79.899 [facility] [address] [place] [address] 50234- 4548 Jun, Bipolar I disorder with depression F31.9 and Other terminal clerk (current) drug therapy Z79.899 [facility] [address] [address]- 0965 Jun, [facility] [address] [address]- 1252 Jun, Bipolar disorder, in partial remission, most recent episode depressed F31.75 and Other stimulant dependence, 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 [facility] [address] [id number] [place] [address] Jun [facility] [address] [id number] [address] May, Other viral agents as the cause of diseases classified elsewhere B97.89 and Acute upper respiratory infection, unspecified J06.9 [facility] [address] [facility] [id number] [address] May, Bipolar disorder, in partial remission, most recent episode depressed F31.75 and Other stimulant dependence, 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 [place] [address] [address]- 4664 02 May, 2016 Bipolar 1 disorder, mixed, full remission F31.78 and Methamphetamine abuse in remission F15.10 [place] [address] [address]- 6097 Feb, Bipolar affective disorder, remission status unspecified F31.9 [facility] [address] [id number] [place] [address] 14 Feb [place] [address] [place] [address] 73912- 1370 14 Feb, 2016 Dental examination Z01.20 [place] [address] [place] [id number] [place] [address] 65438- 2483 16 Jan, 2016 Bipolar 1 disorder, depressed, partial remission F31.75 [place] [address] [place] [address] 00479- 4279 12 Dec, 2015 Bipolar 1 disorder, mixed, full remission F31.78 and Other correction (current) drug therapy Z79.899 [place] [address] [place] [address] 22851- 6703 11 Dec, 2015 Bipolar 1 disorder, mixed, full remission F31.78 and Other terminal clerk (current) drug therapy Z79.899 [place] [address] [address]- 0225 Oct, [place] [address] [place] [id number] [place] [address] 30645- 5906 Oct, Type 2 diabetes mellitus without complication, without long- term current use of insulin E11.9 ; Bipolar disorder, current episode manic without psychotic features, moderate F31.12 ; Essential hypertension I10 ; Venous insufficiency I87.2 and Open wound, lower leg, left, initial encounter S81.802A [place] [address] [address]- 0165 Oct, [place] [address] [place] [id number] [place] [address] 19493- 9256 Oct, Bipolar affective disorder, remission status unspecified F31.9 [place] [address] [place] [id number] [place] [address] 35353- 2371 Oct, [facility] [address] [id number] [place] [address] 23575- 8229 Sep, [place] [address] [id number] [place] [address] 22985- 4882 Sep, [place] [address] [id number] [place] [address] 06876- 7701 Sep, Type 2 diabetes mellitus without complication, without long- term current use of insulin E11.9 ; Essential hypertension I10 and Venous insufficiency I87.2 [facility] [address] [id number] [place] [address] 19985 -4286 Sep, Cellulitis of lower extremity, unspecified laterality L03.119 and Peripheral vascular disease of lower extremity I73.9 [place] [address] [place] [address] 37469- 0052 Aug, [place] [address] [id number] [place] [address] 16055- 3048 Aug, Bipolar affective disorder, remission status unspecified F31.9 [facility] [id number] [place] [address] 96095 -2073 July, Cellulitis, unspecified cellulitis site L03.90 [place] [address] [id number] [place] [address] 09700- 0228 Jun, Bipolar disorder, current episode manic without psychotic features, moderate F31.12 and Other stimulant dependence, 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 [place] [address] [id number] [place] [address] 56842- 3431 Jun, Essential hypertension, hypertension with unspecified goal I10 and Knee pain M25.569 [place] [address] [id number] [place] [address] 56219- 0396 May, [facility] [id number] [address]- 4229 May, Bipolar disorder, current episode manic without psychotic features, moderate F31.12 and Essential hypertension, hypertension with unspecified goal I10 [facility] [id number] [place] [address] 53951- 1668 10 May, 2015 Bipolar disorder, current episode manic without psychotic features, moderate F31.12 and Other stimulant dependence, 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 [facility] [id number] [place] [address] 59657- 4605 Dec, [facility] [address] 16786- 8140 Dec, Bipolar 1 disorder, mixed, full remission F31.78 [facility] [id number] [place] [address] 44226- 1863 Jun, [facility] [id number] [place] [address] 93083- 7094 Jun, [facility] [id number] [place] [address] 77454- 1221 May, [facility] [id number] [place] [address] 66497- 4276 May, [facility] [id number] [place] [address] 83088- 3345 May, [facility] [id number] [place] [address] 93135- 9100 May, [facility] [id number] [place] [address] 52568- 6033 May, [facility] [id number] [place] [address] 43230- 7406 May, [facility] [id number] [place] [address] 49197- 2829 Mar, [facility] [id number] [place] [address], [place] [address]- 5665 Mar, [facility] [place] [facility] [address] [id number] [place] [address]- 0978 Feb, [facility] [place] [facility] [address] [id number] [place] [address]- 3300 Jan, [facility] [place] [facility] [address] [id number] [place] [address]- 7410 Jan, [facility] [place] [facility] [address] [id number] [place] [address]- 5753 Jan, [facility] [place] [facility] [address] [id number] [place] [address]- 8615 Jan, [facility] [place] [facility] [address] [id number] [place] [address]- 1739 Nov, [facility] [place] [facility] [address] [id number] [place] [address]- 2772 Nov, [facility] [place] [facility] [address] [id number] [place] [address]- 0405 Oct, [facility] [place] [facility] [address] [id number] [place] [address]- 6613 Oct, [facility] [place] [facility] [address] [id number] [place] [address]- 9679 Sep, [facility] [place] [facility] [address] [id number] [place] [address]- 6065 Sep, [facility] [place] [facility] [address] [id number] [place] [address]- 0845 Sep, [facility] [place] [facility] [address] [id number] [place] [address]- 6886 Sep, [facility] [place] [facility] [address] [id number] [place] 5897 July, [facility] [place] [facility] [address] [id number] [place] [address]- 6202 July, [facility] [place] [facility] [address] [id number] [place] [address]- 3240 July, [facility] [place] [facility] [address] [id number] [place] [address]- 0243 July, [facility] [place] [facility] [address] [id number] [place] [address]- 4548 July, [facility] [place] [facility] [address] [id number] [place] [address]- 8520 July, [facility] [place] [facility] [address] [id number] [place] [address]- 6056 July, [facility] [place] [facility] [address] [id number] [place] [address]- 1545 July, [facility] [place] [facility] [address] [id number] [place] [address]- 8377 Jun, [facility] [place] [facility] [address] [id number] [place] [address]- 8822 Jun, [facility] [place] [facility] [address] [id number] [place] [address]- 2410 Jun, [facility] [place] [facility] [address] [id number] [place] [address]- 9928 Jun, [facility] [place] [facility] [address] [id number] [place] [address]- 5145 May, [facility] [place] [facility] [address] [id number] [place] [address]- 7856 May, [facility] [place] [facility] [address] [id number] [place] [address]- 5923 May, [facility] [place] [facility] [address] [id number] [place] [address]- 8828 May, [facility] [place] [facility] [address] [id number] [place] [address]- 8716 May, [facility] [place] [facility] [address] [id number] [place] [address]- 8982 May, [facility] [address] [id number] [place] [address]- 3582 May, [facility] [place] [facility] [address] [id number] [place] [address]- 7376 May, [facility] [place] [facility] [address] [id number] [place] [address]- 6946 May, [facility] [place] [facility] [address] [id number] [place] [address]- 0992 May, [facility] [address] [id number] [place] [address]- 0589 May, [facility] [address] [id number] [place] [address]- 8978 Mar, [facility] [address] [id number] [place] [address]- 7003 Mar, [facility] [address] [id number] [place] [address]- 9316 Mar, [facility] [address] [id number] [place] [address]- 8237 Mar, [facility] [address] [facility] [id number] [place] [address]- 0082 Feb, [facility] [place] [facility] [address] [id number] [place] [address]- 4998 Feb, [facility] [place] [facility] [address] [id number] [place] [address]- 2542 Feb, [facility] [place] [facility] [address] [id number] [place] [address]- 3619 Feb, [facility] [place] [facility] [address] [id number] [place] [address]- 7456 Jan, [facility] [place] [facility] [address] [id number] [place] [address]- 5836 Jan, [facility] [place] [facility] [address] [place] [address]- 6193 Jan, [facility] [address], [place] [address]- 6292 Jan, [facility] [address], [place] [address]- 6669 Mar, [facility] [address], [place] [address]- 5959 Mar, [facility] [id number], [place] [address]- 7888 Feb, [facility] [id number], [place] [address]- 7621 Jan, [facility] [id number] [place] [address] Dec, [facility] [id number] [address] Nov, [facility] [id number] [address] Oct, [facility] [id number] [address] Sep, [facility] [id number], [place] [address] Feb, IMMUNIZATIONS No Known Immunizations SOCIAL HISTORY Never Assessed REASON FOR VISIT BH intake. JACOBO Torres PLAN OF CARE Activity Details Follow Up 4 Weeks Reason: VITAL SIGNS Height 71 in 2016-10-17 Weight 290 lbs 2016-10-17 Heart Rate 92 bpm 2016-10-17 Respiratory Rate 20 2016-10-17 BMI 40.44 kg/m2 2016-10-17 Blood pressure systolic 150 mmHg 2016-10-17 Blood pressure diastolic 80 mmHg 2016-10-17 MEDICATIONS Medication Instructions Dosage Frequency Start Date End Date Duration Status Lipitor 40 MG Orally Once a day 1 tablet 24h Aug, 30 day(s) Active Metformin HCl 1000 MG Orally Twice a day, pc 1 tablet with meals Aug, 30 day(s) Active Glucocard Expression Monitor w/Device as directed Aug, Active Glucocard Expression Test - DX E11.9 2 times a day- 3 times weekly. test blood sugar Aug, Active Latuda 80 MG Orally daily at suppertime 1 tablet with food 30 days Active RESULTS No Results PROCEDURES Procedure Date Ordered Result Body Site [facility] VISIT ESTABLISHED PATIENT October 17, 2016 INSTRUCTIONS MEDICATIONS ADMINISTERED No Known Medications [...]
--- OUTSIDE RECORDS SUMMARY | 2017-08-06 10:29 | XMS REPORT ---
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 Active 081295835 Problem Type 2 diabetes mellitus without complication, without long-term current use of insulin E11.9 Active 789583441 Problem Amphetamine use disorder, 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 50069532 Problem PVD (peripheral vascular disease) I73.9 Active 995134145 Problem Mixed hyperlipidemia E78.2 Active 474897567 Problem Bipolar disorder, in partial remission, most recent episode depressed F31.75 Active 07416424 Problem Bipolar I disorder with depression F31.9 Active 56044273 Problem Methamphetamine use disorder, 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 272672421 ALLERGIES No Information ENCOUNTERS Encounter Location Date Diagnosis [facility] [id number] [place] [address] 35300- 2271 July, [facility] [id number] [place] [address] 94086- 1188 July, [facility] [id number] [place] [address] 33021- 6718 Jun, [facility] [id number] [place] [address] 81047- 1016 May, Bipolar I disorder with depression F31.9 and Amphetamine use disorder, 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 [facility] [id number] [place] [address] 49038- 3165 May, Bipolar I disorder with depression F31.9 and Amphetamine use disorder, 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 [facility] [id number] [place] [address] 93702- 7376 May, [facility] [id number] [place] [address] 39463- 0364 14 May, 2017 BMI 40.0-44.9, adult Z68.41 ; Methamphetamine use disorder, 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 and Bipolar I disorder with depression F31.9 [facility] [id number] [place] [address] 37925- 6544 Mar, [facility] [id number] [place] [address] 50024- 1185 Mar, Methamphetamine use disorder, 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 and Bipolar I disorder with depression F31.9 [place] [id number] [place] [address] 48677- 2346 Mar, Methamphetamine use disorder, 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 ; Bipolar I disorder with depression F31.9 and BMI 40.0-44.9, adult Z68.41 [facility] [id number] [place] [address] 91578- 9963 Mar, [facility] [id number] [place] [address] 56980 -7181 Feb, Cough R05 ; Other viral agents as the cause of diseases classified elsewhere B97.89 ; Acute upper respiratory infection, unspecified J06.9 and BMI 40.0-44.9, adult Z68.41 [facility] [id number] [place] [address] 25948- 3979 Feb, [place] [id number] [place] [address] 67338- 0353 Feb, Methamphetamine use disorder, 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 and Bipolar I disorder with depression F31.9 [facility] [id number] [place] [address] 83325- 7961 Feb, Methamphetamine use disorder, 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 ; Bipolar I disorder with depression F31.9 and BMI 40.0-44.9, adult Z68.41 [place] [address] 65337- 7416 Feb, [place] [address] 61944- 8188 Jan, Type 2 diabetes mellitus without complication, without long- term current use of insulin E11.9 [facility] [address] 84958 -6844 Jan, BMI 40.0-44.9, adult Z68.41 and Open wound of left lower leg, subsequent encounter S81.802D [facility] [place] [address] 98621 -8279 16 Jan, 2017 Abrasion T14.8XXA ; Encounter for immunization Z23 and PVD (peripheral vascular disease) I73.9 [place] [address] 65476- 6955 15 Jan, 2017 [place] [address] 71148- 4652 Jan, [place] [address] 64357- 7456 Jan, Bipolar I disorder with depression F31.9 and Other stimulant dependence, 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 [place] [address] 78548- 0289 2016 Type 2 diabetes mellitus without complication, without long- term current use of insulin E11.9 and Essential hypertension I10 [place] [address] 64069- 2173 28 Nov, 2016 Methamphetamine use disorder, 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 and Bipolar I disorder with depression F31.9 [place] [address] 03242- 9429 26 Nov, 2016 Bipolar I disorder with depression F31.9 and Other stimulant dependence, 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 [facility] [address] [address] 14 Nov, 2016 Bilateral impacted cerumen H61.23 [facility] [address] [place] [address] 49005- 8266 12 Nov, 2016 Bipolar I disorder with depression F31.9 and Other stimulant dependence, 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 [facility] [id number] [place] [address] 12157- 5980 11 Nov, 2016 [facility] [id number] [place] [address] 62016- 2227 Nov, [facility] [id number] [place] [address] 48911- 5824 Oct, Bipolar I disorder with depression F31.9 and Adderall use disorder, moderate, dependence F15.20 [facility] [id number] [place] [address] 71130- 7005 Oct, Bipolar I disorder with depression F31.9 and Methamphetamine use disorder, 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 [facility] [address] [place] [address] 79629- 1298 Oct, [facility] [id number] [place] [address] 01262- 8322 Sep, [facility] [address] [place] [address] 49709- 0087 Sep, Bipolar I disorder with depression F31.9 [facility] [id number] [place] [address] 87231- 2288 Sep, Bipolar I disorder with depression F31.9 and Methamphetamine use disorder, 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 [facility] [id number] [place] [address] 06173- 3675 Sep, Bipolar I disorder with depression F31.9 and Other stimulant dependence, 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 [facility] [id number] [place] [address] 11005- 5080 Sep, [facility] [id number] [place] [address] 52266- 0886 Sep, [facility] [id number] [place] [address] 55170- 4671 Sep, Tick bite, initial encounter W57.XXXA [facility] [id number] [place] [address] 91287- 3963 Aug, [facility] [address] 41515- 8385 Aug, [facility] [id number] [place] [address] 67163- 9526 Aug, Bipolar I disorder with depression F31.9 and Other stimulant dependence, 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 [facility] [address] [place] [address] Aug, [facility] [address] 26189- 6757 Aug, [facility] [address] [place] [address] Aug, [facility] [id number] [place] [address] 32750- 8924 Aug, [facility] [id number] [place] [address] 35106- 0613 Aug, Elevated glucose R73.09 ; Type 2 diabetes mellitus without complication, without long-term current use of insulin E11.9 ; Periumbilical abdominal pain R10.33 and Mixed hyperlipidemia E78.2 [facility] [id number] [place] [address] 71229 -2828 Aug, Periumbilical abdominal pain R10.33 and Tick bite, initial encounter W57.XXXA [facility] [id number] [place] [address] 56038- 2344 Aug, Bipolar I disorder with depression F31.9 [facility] [id number] [place] [address] 93945- 5427 July, Bipolar I disorder with depression F31.9 and Other stimulant dependence, 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 [facility] [address] [place] [address] 65749- 1740 July, [facility] [address] [place] [address] July, [facility] [id number] [place] [address] 21572- 5225 July, [facility] [id number] [place] [address] 69521- 9179 Jun, Bipolar I disorder with depression F31.9 [facility] [id number] [place] [address] 26131- 7331 Jun, Elevated glucose R73.09 and Other snf (current) drug therapy Z79.899 [facility] [address] [place] [address] 78495- 3568 Jun, Bipolar I disorder with depression F31.9 and Other snf (current) drug therapy Z79.899 [facility] [id number] [place] [address] 33884- 3080 Jun, [facility] [id number] [place] [address] 54635- 4403 Jun, Bipolar disorder, in partial remission, most recent episode depressed F31.75 and Other stimulant dependence, 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 [facility] [address] [id number] [place] [address] Jun [facility] [id number] [address] May, Other viral agents as the cause of diseases classified elsewhere B97.89 and Acute upper respiratory infection, unspecified J06.9 [facility] [id number] [address]- 2924 May, Bipolar disorder, in partial remission, most recent episode depressed F31.75 and Other stimulant dependence, 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 [place] [address] [address]- 9708 May, Bipolar 1 disorder, mixed, full remission F31.78 and Methamphetamine abuse in remission F15.10 [place] [id number] [place] [address] 00702- 4350 Feb, Bipolar affective disorder, remission status unspecified F31.[address] [id number] [place] [address] Feb [place] [id number] [place] [address] 81222- 8709 Feb, Dental examination Z01.20 [place] [id number] [place] [address] 26447- 7345 Jan, Bipolar 1 disorder, depressed, partial remission F31.75 [place] [address] [place] [address] 34524- 6666 12 Dec, 2015 Bipolar 1 disorder, mixed, full remission F31.78 and Other snf (current) drug therapy Z79.899 [place] [id number] [place] [address] 13161- 5879 11 Dec, 2015 Bipolar 1 disorder, mixed, full remission F31.78 and Other watermaster (current) drug therapy Z79.899 [place] [address] [place] [address] 64876- 6002 Oct, [place] [id number] [place] [address] 81199- 6061 Oct, Type 2 diabetes mellitus without complication, without long- term current use of insulin E11.9 ; Bipolar disorder, current episode manic without psychotic features, moderate F31.12 ; Essential hypertension I10 ; Venous insufficiency I87.2 and Open wound, lower leg, left, initial encounter S81.802A [place] [address] [place] [address] 27882- 9712 Oct, [place] [id number] [place] [address] 84746- 4719 Oct, Bipolar affective disorder, remission status unspecified F31.9 [place] [id number] [place] [address] 84140- 8711 Oct, [place] [id number] [place] [address] 61025- 7524 Sep, [place] [id number] [place] [address] 31630- 7288 Sep, [place] [id number] [place] [address] 76328- 2666 Sep, Type 2 diabetes mellitus without complication, without long- term current use of insulin E11.9 ; Essential hypertension I10 and Venous insufficiency I87.2 [facility] [place] [id number] [place] [address] 93082 -6051 Sep, Cellulitis of lower extremity, unspecified laterality L03.119 and Peripheral vascular disease of lower extremity I73.9 [place] [id number] [place] [address] 85055- 6169 Aug, [place] [id number] [place] [address] 27173- 6978 Aug, Bipolar affective disorder, remission status unspecified F31.9 [facility] [place] [id number] [place] [address] 53725 -8278 July, Cellulitis, unspecified cellulitis site L03.90 [place] [id number] [place] [address] 37025- 2620 Jun, Bipolar disorder, current episode manic without psychotic features, moderate F31.12 and Other stimulant dependence, 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 [place] [id number] [place] [address] 99147- 8085 Jun, Essential hypertension, hypertension with unspecified goal I10 and Knee pain M25.569 [place] [id number] [place] [address] 64983- 3573 May, [place] [address] [address]- 4453 May, Bipolar disorder, current episode manic without psychotic features, moderate F31.12 and Essential hypertension, hypertension with unspecified goal I10 [facility] [id number] [place] [address] 32707- 3418 10 May, 2015 Bipolar disorder, current episode manic without psychotic features, moderate F31.12 and Other stimulant dependence, 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 [facility] [id number] [place] [address] 86596- 9065 Dec, [facility] [id number] [place] [address] 26780- 1310 Dec, Bipolar 1 disorder, mixed, full remission F31.78 [facility] [id number] [place] [address] 27681- 9636 Jun, [facility] [id number] [place] [address] 41379- 3434 Jun, [facility] [id number] [place] [address] 68401- 6434 May, [facility] [id number] [place] [address] 93438- 9478 May, [facility] [id number] [place] [address] 21163- 0493 May, [facility] [id number] [place] [address] 01163- 3170 May, [facility] [id number] [place] [address] 66445- 6610 May, [facility] [id number] [place] [address] 36806- 5562 May, [facility] [id number] [place] [address] 91378- 8380 Mar, [facility] [id number] [place] [address] 71196- 1687 Mar, [facility] [place] [facility] [address] [id number] [place] [address]- 0243 Feb, [facility] [place] [facility] [address] [id number] [place] 4338 Jan, [facility] [place] [facility] [address] [id number] [place] [address]- 7558 Jan, [facility] [place] [facility] [address] [id number] [place] [address]- 2804 Jan, [facility] [place] [facility] [address] [id number] [place] [address]- 9327 Jan, [facility] [place] [facility] [address] [id number] [place] [address]- 3149 Nov, [facility] [place] [facility] [address] [id number] [place] [address]- 5649 Nov, [facility] [place] [facility] [address] [id number] [place] [address]- 6398 Oct, [facility] [place] [facility] [address] [id number] [place] [address]- 0225 Oct, [facility] [place] [facility] [address] [id number] [place] [address]- 4232 Sep, [facility] [place] [facility] [address] [id number] [place] [address]- 3597 Sep, [facility] [place] [facility] [address] [id number] [place] [address]- 2741 Sep, [facility] [place] [facility] [address] [id number] [place] [address]- 8772 Sep, [facility] [place] [facility] [address] [id number] [place] [address]- 6605 July, [facility] [place] [facility] [address] [id number] [place] [address]- 6397 July, [facility] [place] [facility] [address] [id number] [place] [address]- 8966 July, [facility] [address] [id number] [place] [address]- 6439 July, [facility] [place] [facility] [address] [id number] [place] [address]- 3777 July, [facility] [address] [id number] [place] [address]- 1071 July, [facility] [place] [facility] [address] [id number] [place] [address]- 0071 July, [facility] [address] [id number] [place] [address]- 4785 July, [facility] [place] [facility] [address] [id number] [place] [address]- 5905 Jun, [facility] [place] [facility] [address] [id number] [place] [address]- 1382 Jun, [facility] [address] [id number] [place] [address]- 3213 Jun, [facility] [place] [facility] [address] [id number] [place] [address]- 4642 Jun, [facility] [address] [id number] [place] [address]- 8033 May, [facility] [place] [facility] [address] [id number] [place] [address]- 7345 May, [facility] [place] [facility] [address] [id number] [place] [address]- 9558 May, [facility] [place] [facility] [address] [id number] [place] [address]- 6578 May, [facility] [place] [facility] [address] [id number] [place] [address]- 7878 May, [facility] [place] [facility] [address] [id number] [place] [address]- 8482 May, [facility] [place] [facility] [address] [id number] [place] [address]- 5842 May, [facility] [place] [facility] [address] [id number] [place] [address]- 9036 May, [facility] [place] [facility] [address] [id number] [place] [address]- 5856 May, [facility] [place] [facility] [address] [id number] [place] [address]- 7549 May, [facility] [place] [facility] [address] [id number] [place] [address]- 2383 May, [facility] [place] [facility] [address] [id number] [place] [address]- 6789 Mar, [facility] [place] [facility] [address] [id number] [place] [address]- 8120 Mar, [facility] [place] [facility] [address] [id number] [place] [address]- 0694 Mar, [facility] [place] [facility] [address] [id number] [place] [address]- 2466 Mar, [facility] [place] [facility] [address] [id number] [place] [address]- 9818 Feb, [facility] [place] [facility] [address] [id number] [place] [address]- 9558 Feb, [facility] [place] [facility] [address] [id number] [place] [address]- 4098 Feb, [facility] [place] [facility] [address] [id number] [place] [address]- 2918 Feb, [facility] [place] [facility] [address] [id number] [place] [address]- 6864 Jan, [facility] [place] [facility] [address] [id number] [place] [address]- 0895 Jan, [facility] [place] [facility] [id number] [address]- 5446 Jan, [facility] [id number] [address]- 0712 Jan, [facility] [address], [place] [address]- 6726 Mar, [facility] [address], [place] [address]- 0906 Mar, [facility] [address] [address]- 9634 Feb, [facility] [address], [place] [address]- 7255 Jan, [facility] [address] [address]- 5356 Dec, [facility] [address], [place] [address]- 2923 Nov, [facility] [address] [address]- 7830 Oct, [facility] [address] [address]- 8917 Sep, [facility] [id number] [address]- 9004 Feb, IMMUNIZATIONS No Known Immunizations SOCIAL HISTORY Never Assessed REASON FOR VISIT f/u, Depression. PLAN OF CARE Activity Details Follow Up 2 Weeks Reason:depression VITAL SIGNS MEDICATIONS Unknown Medications RESULTS No Results PROCEDURES Procedure Date Ordered Result Body Site [facility] VISIT MENTAL HEALTH ESTAB PT Nov 25, 2016 Psychotherapy, patient &/family, 30 minutes, established patient Nov 25, 2016 INSTRUCTIONS MEDICATIONS ADMINISTERED No Known Medications MEDICAL (GENERAL) HISTORY Type Description Date Medical History Bipolar disorder, current episode manic without psychotic features, moderate Medical History Essential hypertension, hypertension with unspecified goal Medical History diabetes Medical History hypercholesterolemia Surgical History Hernia repair 03/2014 Surgical History Oral Surgery 06/2014 Hospitalization History early 1999 he [place] inpatient stay [place] [facility] when he was experiencing SI
--- OUTSIDE RECORDS SUMMARY | 2017-08-06 10:30 | XMS REPORT ---
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 Active 581874794 Problem Type 2 diabetes mellitus without complication, without long-term current use of insulin E11.9 Active 324986508 Problem Amphetamine use disorder, 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 74684410 Problem PVD (peripheral vascular disease) I73.9 Active 603572490 Problem Mixed hyperlipidemia E78.2 Active 125936442 Problem Bipolar disorder, in partial remission, most recent episode depressed F31.75 Active 11921394 Problem Bipolar I disorder with depression F31.9 Active 68551953 Problem Methamphetamine use disorder, 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 642651620 ALLERGIES No Information ENCOUNTERS Encounter Location Date Diagnosis [place] [id number] [place] [address] 55656- 4956 July, [place] [address] [place] [id number] [place] [address] 75319- 0573 July, [place] [id number] [place] [address] 75449- 0215 May, Bipolar I disorder with depression F31.9 and Amphetamine use disorder, 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 [place] [id number] [place] [address] 44724- 3507 May, Bipolar I disorder with depression F31.9 and Amphetamine use disorder, 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 [place] [address] [place] [id number] [address] May, [place] [address] [place] [id number] [place] [address] 51102- 6705 May, BMI 40.0-44.9, adult Z68.41 ; Methamphetamine use disorder, 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 and Bipolar I disorder with depression F31.9 [place] [address] [place] [id number] [place] [address] 00403- 9000 Mar, [place] [address] [place] [id number] [place] [address] 77996- 4374 Mar, Methamphetamine use disorder, 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 and Bipolar I disorder with depression F31.9 [place] [address] [place] [id number] [place] [address] 15683- 6410 Mar, Methamphetamine use disorder, 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 ; Bipolar I disorder with depression F31.9 and BMI 40.0-44.9, adult Z68.41 [place] [id number] [place] [address] 89196- 7943 Mar, [facility] [address] [place] [id number] [place] [address] 64448 -5397 Feb, Cough R05 ; Other viral agents as the cause of diseases classified elsewhere B97.89 ; Acute upper respiratory infection, unspecified J06.9 and BMI 40.0-44.9, adult Z68.41 [place] [address] [place] [address] 41219- 9886 Feb, [place] [id number] [place] [address] 06687- 8091 Feb, Methamphetamine use disorder, 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 WALK IN [place] [address] 17[address] -5659 Jan, BMI 40.0-44.9, adult Z68.41 and Open wound of left lower leg, subsequent encounter S81.802D 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 [facility] [address] [place] [address] 60757- 7999 Nov, [facility] [address] [place] [id number] [place] [address] 18520- 3425 Nov, [facility] [address] [place] [address] 84819- 8705 Oct, Bipolar I disorder with depression F31.9 and Adderall use disorder, moderate, dependence F15.20 [facility] [address] [place] [id number] [place] [address] 51164- 8377 Oct, Bipolar I disorder with depression F31.9 and Methamphetamine use disorder, 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 [facility] [address] [place] [id number] [place] [address] 65996- 8835 Oct, [facility] [address] [place] [id number] [place] [address] 40196- 1777 Sep, [facility] [address] [place] [address] 97346- 6815 Sep, Bipolar I disorder with depression F31.9 [facility] [address] [place] [address] 54633- 4222 Sep, Bipolar I disorder with depression F31.9 and Methamphetamine use disorder, 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 [facility] [address] [place] [id number] [address]- 0852 Sep, Bipolar I disorder with depression F31.9 and Other stimulant dependence, 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 [facility] [address] [place] [address] 31242- 5452 Sep, [facility] [address] [place] [id number] [place] [address] 28045- 6639 Sep, [facility] [address] [place] [address] 30627- 5768 Sep, Tick bite, initial encounter W57.XXXA [facility] [address] [place] [id number] [place] [address] 94589- 2271 Aug, [facility] [address] [place] [id number] [place] [address] 02272- 4379 Aug, [facility] [address] 03011- 4059 Aug, Bipolar I disorder with depression F31.9 and Other stimulant dependence, 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33 and Mixed hyperlipidemia E78.2 [facility] [address] [place] [id number] [place] [address] 92410 -4085 Aug, Periumbilical abdominal pain R10.33 and Tick bite, initial encounter W57.XXXA [place] [address] 81073- 1263 Aug, Bipolar I disorder with depression F31.9 [facility] [address] [place] [id number] [place] [address] 71600- 1449 July, Bipolar I disorder with depression F31.9 and Other stimulant dependence, 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 [place] [address] [place] [id number] [address]- 6321 July, [facility] [address] [place] [address] July, [facility] [address] [address]- 1141 July, [facility] [address] [address]- 1493 Jun, Bipolar I disorder with depression F31.9 [facility] [address] [address]- 7421 Jun, Elevated glucose R73.09 and Other shelter (current) drug therapy Z79.899 [facility] [address] [address]- 5734 Jun, Bipolar I disorder with depression F31.9 and Other retanner (current) drug therapy Z79.899 [facility] [address] [address]- 4176 Jun, [facility] [address] [address]- 4678 Jun, Bipolar disorder, in partial remission, most recent episode depressed F31.75 and Other stimulant dependence, 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 [facility] [place] [id number] [place] [address] Jun [facility] [address] [place] [id number] [address] -2674 May, Other viral agents as the cause of diseases classified elsewhere B97.89 and Acute upper respiratory infection, unspecified J06.9 [facility] [address] [place] [id number] [address]- 3296 May, Bipolar disorder, in partial remission, most recent episode depressed F31.75 and Other stimulant dependence, 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 [facility] [address] [place] [id number] [address]- 0316 May, Bipolar 1 disorder, mixed, full remission F31.78 and Methamphetamine abuse in remission F15.10 [place] [address] [address]- 1591 Feb, Bipolar affective disorder, remission status unspecified F31.9 [facility] JEFFREY URBINA [id number] [place] [address] Feb [place] [address] [place] [address] 19049- 2196 Feb, Dental examination Z01.20 [place] [address] [place] [address] 00315- 4325 16 Jan, 2016 Bipolar 1 disorder, depressed, partial remission F31.75 [place] [address] [place] [address] 43568- 1515 12 Dec, 2015 Bipolar 1 disorder, mixed, full remission F31.78 and Other retanner (current) drug therapy Z79.899 [place] [address] [place] [address] 13484- 8855 Dec, Bipolar 1 disorder, mixed, full remission F31.78 and Other shelter (current) drug therapy Z79.899 [place] [address] [place] [address] 33307- 1536 Oct, [place] [address] [place] [address] 83139- 7742 Oct, Type 2 diabetes mellitus without complication, without long- term current use of insulin E11.9 ; Bipolar disorder, current episode manic without psychotic features, moderate F31.12 ; Essential hypertension I10 ; Venous insufficiency I87.2 and Open wound, lower leg, left, initial encounter S81.802A [place] [address] [place] [address] 34636- 2927 Oct, [place] [address] [place] [address] 49775- 0529 Oct, Bipolar affective disorder, remission status unspecified F31.9 [place] [address] [place] [address] 25967- 4891 Oct, [facility] [address] [place] [id number] [place] [address] 33023- 0011 Sep, [facility] [address] [place] [id number] [place] [address] 84185- 7122 Sep, [place] [address] [place] [id number] [place] [address] 81882- 5022 Sep, Type 2 diabetes mellitus without complication, without long- term current use of insulin E11.9 ; Essential hypertension I10 and Venous insufficiency I87.2 [facility] [place] [address] [place] [id number] [place] [address] 57746 -1001 Sep, Cellulitis of lower extremity, unspecified laterality L03.119 and Peripheral vascular disease of lower extremity I73.9 [place] [address] [place] [id number] [place] [address] 55172- 0505 Aug, [place] [address] [place] [id number] [place] [address] 11310- 7320 Aug, Bipolar affective disorder, remission status unspecified F31.9 [facility] [place] [address] [place] [id number] [place] [address] 06543 -5551 July, Cellulitis, unspecified cellulitis site L03.90 [place] [address] [place] [id number] [place] [address] 04068- 6907 Jun, Bipolar disorder, current episode manic without psychotic features, moderate F31.12 and Other stimulant dependence, 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 [place] [address] [place] [id number] [place] [address] 88519- 8398 Jun, Essential hypertension, hypertension with unspecified goal I10 and Knee pain M25.569 [place] [address] [place] [id number] [place] [address] 85165- 6124 May, [place] [address] [place] [id number] [place] [address] 33576- 6503 May, Bipolar disorder, current episode manic without psychotic features, moderate F31.12 and Essential hypertension, hypertension with unspecified goal I10 [facility] [address] [place] [id number] [place] [address] 35416- 8467 May, Bipolar disorder, current episode manic without psychotic features, moderate F31.12 and Other stimulant dependence, 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 [facility] [address] [place] [id number] [place] [address] 62647- 0432 Dec, [facility] [address] [place] [id number] [place] [address] 01458- 6836 Dec, Bipolar 1 disorder, mixed, full remission F31.78 [facility] [address] [place] [id number] [place] [address] 92931- 1601 Jun, [facility] [address] [place] [id number] [place] [address] 41488- 4315 Jun, [facility] [address] [place] [id number] [place] [address] 29174- 6405 May, [facility] [address] [place] [id number] [place] [address] 37183- 6616 May, [facility] [address] [place] [id number] [place] [address] 67614- 2587 May, [facility] [address] [place] [id number] [place] [address] 55923- 6366 May, [facility] [address] [place] [id number] [place] [address] 16585- 4133 May, [facility] [address] [place] [id number] [place] [address] 40279- 4991 May, [facility] [address] [place] [id number] [place] [address] 20870- 3577 Mar, [facility] [address] [place] [id number] [place] [address] 81692- 8643 Mar, [facility] [address] [place] [id number] [place] [address] 87624- 2692 Feb, [facility] [place] [facility] [address] [id number] [place] [address]- 5429 Jan, [facility] [place] [facility] [address] [id number] [place] [address]- 0852 Jan, [facility] [place] [facility] [address] [id number] [place] [address]- 2650 Jan, [facility] [place] [facility] [address] [id number] [place] [address]- 1355 Jan, [facility] [place] [facility] [address] [id number] [place] [address]- 5653 Nov, [facility] [place] [facility] [address] [id number] [place] [address]- 8934 Nov, [facility] [place] [facility] [address] [id number] [place] [address]- 5862 Oct, [facility] [place] [facility] [address] [id number] [place] [address]- 2130 Oct, [facility] [place] [facility] [address] [id number] [place] [address]- 4734 Sep, [facility] [place] [facility] [address] [id number] [place] [address]- 8058 Sep, [facility] [place] [facility] [address] [id number] [place] [address]- 5656 Sep, [facility] [place] [facility] [address] [id number] [place] [address]- 4886 Sep, [facility] [place] [facility] [address] [id number] [place] [address]- 5633 July, [facility] [place] [facility] [address] [id number] [place] [address]- 2569 July, [facility] [place] [facility] [address] [id number] [place] [address]- 7095 July, [facility] [place] [facility] [address] [id number] [place] [address]- 3817 July, [facility] [place] [facility] [address] [id number] [place] [address]- 5566 July, [facility] [place] [facility] [address] [id number] [place] [address]- 0937 July, [facility] [place] [facility] [address] [id number] [place] [address]- 6659 July, [facility] [place] [facility] [address] [id number] [place] [address]- 7486 July, [facility] [place] [facility] [address] [id number] [place] [address]- 8597 Jun, [facility] [place] [facility] [address] [id number] [place] [address]- 5909 Jun, [facility] [place] [facility] [address] [id number] [place] [address]- 9523 Jun, [facility] [place] [facility] [address] [id number] [place] [address]- 0149 Jun, [facility] [place] [facility] [address] [id number] [place] [address]- 2509 May, [facility] [place] [facility] [address] [id number] [place] [address]- 5388 May, [facility] [place] [facility] [address] [id number] [place] [address]- 2977 May, [facility] [place] [facility] [address] [id number] [place] [address]- 1087 May, [facility] [place] [facility] [address] [id number] [place] [address]- 1154 May, [facility] [place] [facility] [address] [id number] [place] [address]- 4594 May, [facility] [place] [facility] [address] [id number] [place] [address]- 8766 May, [facility] [address] [id number] [place] [address]- 4904 May, [facility] [place] [facility] [address] [id number] [place] 2906 May, [facility] [place] [facility] [address] [id number] [place] [address]- 8746 May, [facility] [place] [facility] [address] [id number] [place] [address]- 4791 May, [facility] [place] [facility] [address] [id number] [place] [address]- 7278 Mar, [facility] [place] [facility] [address] [id number] [place] [address]- 4297 Mar, [facility] [address] [id number] [place] [address]- 0828 Mar, [facility] [place] [facility] [address] [id number] [place] [address]- 6264 Mar, [facility] [place] [facility] [address] [id number] [place] [address]- 9371 Feb, [facility] [place] [facility] [address] [id number] [place] [address]- 1209 Feb, [facility] [place] [facility] [address] [id number] [place] [address]- 3984 Feb, [facility] [place] [facility] [address] [id number] [place] [address]- 9147 Feb, [facility] [place] [facility] [address] [id number] [place] [address]- 0155 Jan, [facility] [place] [facility] [address] [id number] [place] [address]- 1539 Jan, [facility] [place] [facility] [address] [id number] [place] [address]- 7424 Jan, [facility] [place] [facility] [id number] [address]- 5674 Jan, [facility] [id number] [address]- 8440 Mar, [facility] [address] [address]- 7575 Mar, [facility] [address] [id number] [address]- 5469 Feb, [facility] [address] [address]- 2223 Jan, [facility] [address] [address]- 7892 Dec, [facility] [address] [address]- 0129 Nov, [facility] [address] [address]- 6988 Oct, [facility] [id number] [address]- 6078 Sep, [facility] [id number] [address]- 7799 Feb, IMMUNIZATIONS No Known Immunizations SOCIAL HISTORY Never Assessed REASON FOR VISIT call back attempt again PLAN OF CARE VITAL SIGNS MEDICATIONS Unknown [...] early 1999 he had inpatient stay at [facility] when he was experiencing SI
--- OUTSIDE RECORDS SUMMARY | 2017-08-06 10:30 | XMS REPORT ---
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 Active 234123399 Problem Type 2 diabetes mellitus without complication, without long-term current use of insulin E11.9 Active 266290064 Problem Amphetamine use disorder, 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 94646416 Problem PVD (peripheral vascular disease) I73.9 Active 365755186 Problem Mixed hyperlipidemia E78.2 Active 464877129 Problem Bipolar disorder, in partial remission, most recent episode depressed F31.75 Active 21512216 Problem Bipolar I disorder with depression F31.9 Active 08789011 Problem Methamphetamine use disorder, 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 039512347 ALLERGIES No Information ENCOUNTERS Encounter Location Date Diagnosis [place] [id number] [place] [address] 40250- 5515 Jun, [facility] [place] [address] [place] [id number] [place] [address] 97548- 4668 Jun, [facility] [place] [address] [id number] [place] [address] 91355- 4902 Jun, [place] [address] [id number] [place] [address] 14107- 5244 May, Bipolar I disorder with depression F31.9 and Amphetamine use disorder, 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 [place] [address] [place] [id number] [place] [address] 50089- 4495 May, Bipolar I disorder with depression F31.9 and Amphetamine use disorder, 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 [facility] [place] [id number] [place] [address] 78245- 2895 May, [facility] [place] [address] [id number] [place] [address] 25848- 4430 14 May, 2017 BMI 40.0-44.9, adult Z68.41 ; Methamphetamine use disorder, 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 and Bipolar I disorder with depression F31.9 [facility] [place] [id number] [place] [address] 80765- 7630 Mar, [facility] [place] [address] [place] [address] [id number] [place] [address] 87203- 2252 Mar, Methamphetamine use disorder, 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 and Bipolar I disorder with depression F31.9 [place] [address] [place] [id number] [place] [address] 86234- 2313 Mar, Methamphetamine use disorder, 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 ; Bipolar I disorder with depression F31.9 and BMI 40.0-44.9, adult Z68.41 [facility] [place] [address] [place] [id number] [place] [address] 28385- 1632 Mar, [facility] [id number] [address] Feb, Cough R05 ; Other viral agents as the cause of diseases classified elsewhere B97.89 ; Acute upper respiratory infection, unspecified J06.9 and BMI 40.0-44.9, adult Z68.41 [facility] [place] [id number] [address] 8700 Feb, [place] [address] [place] [id number] [place] [address] 69014- 8575 Feb, Methamphetamine use disorder, 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 and Bipolar I disorder with depression F31.9 [facility] [place] [id number] [place] [address] 45556- 5724 Feb, Methamphetamine use disorder, 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 ; Bipolar I disorder with depression F31.9 and BMI 40.0-44.9, adult Z68.41 [place] [address] 05400- 9693 Feb, [place] [address] 35107- 6906 Jan, Type 2 diabetes mellitus without complication, without long- term current use of insulin E11.9 [facility] [address] 07129 -4210 Jan, BMI 40.0-44.9, adult Z68.41 and Open wound of left lower leg, subsequent encounter S81.802D [facility] [place] [address] 29614 -3033 16 Jan, 2017 Abrasion T14.8XXA ; Encounter for immunization Z23 and PVD (peripheral vascular disease) I73.9 [place] [address] 45704- 7956 15 Jan, 2017 [place] [address] 83571- 7250 Jan, [place] [address] 61461- 7873 Jan, Bipolar I disorder with depression F31.9 and Other stimulant dependence, 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 [place] [address] [place] [id number] [place] [address] 15541- 8726 2016 Type 2 diabetes mellitus without complication, without long- term current use of insulin E11.9 and Essential hypertension I10 [place] [address] 11398- 3738 28 Nov, 2016 Methamphetamine use disorder, 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 and Bipolar I disorder with depression F31.9 [place] [address] 63255- 6184 26 Nov, 2016 Bipolar I disorder with depression F31.9 and Other stimulant dependence, 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 [facility] [id number] [place] [address] 35198 -4190 14 Nov, 2016 Bilateral impacted cerumen H61.23 [facility] [place] [address] [place] [address] [id number] [place] [address] 91160- 1125 12 Nov, 2016 Bipolar I disorder with depression F31.9 and Other stimulant dependence, 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 [facility] [place] [address] [place] [id number] [place] [address] 97790- 9066 11 Nov, 2016 [facility] [place] [address] [place] [id number] [place] [address] 50565- 1643 Nov, [facility] [place] [address] [place] [id number] [place] [address] 11525- 0037 Oct, Bipolar I disorder with depression F31.9 and Adderall use disorder, moderate, dependence F15.20 [facility] [place] [address] [place] [id number] [place] [address] 02248- 8904 Oct, Bipolar I disorder with depression F31.9 and Methamphetamine use disorder, 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 [facility] [place] [address] [place] [id number] [place] [address] 11061- 9989 Oct, [facility] [place] [address] [place] [address] [id number] [place] [address] 80856- 1429 Sep, [facility] [place] [id number] [place] [address] 62513- 2395 Sep, Bipolar I disorder with depression F31.9 [facility] [place] [address] [place] [id number] [place] [address] 65473- 1646 Sep, Bipolar I disorder with depression F31.9 and Methamphetamine use disorder, 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 [facility] [place] [address] [place] [id number] [place] [address] 51289- 4988 Sep, Bipolar I disorder with depression F31.9 and Other stimulant dependence, 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 [facility] [place] [id number] [place] [address] 04651- 4019 Sep, [facility] [place] [id number] [place] [address] 46701- 8887 Sep, [facility] [place] [address] [place] [id number] [place] [address] 28803- 0793 Sep, Tick bite, initial encounter W57.XXXA [facility] [place] [address] [place] [id number] [place] [address] 14409- 9305 Aug, [facility] [place] [address] [place] [id number] [place] [address] 34128- 8395 Aug, [facility] [place] [address] [place] [id number] [place] [address] 43337- 4482 Aug, Bipolar I disorder with depression F31.9 and Other stimulant dependence, 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 [facility] [address] [place] [address] Aug, [facility] [place] [address] [place] [id number] [place] [address] 87813- 2292 Aug, [facility] [address] [place] [address] Aug, [facility] [place] [address] [place] [id number] [place] [address] 65803- 1229 Aug, [facility] [place] [address] [place] [id number] [place] [address] 92323- 6105 Aug, Elevated glucose R73.09 ; Type 2 diabetes mellitus without complication, without long-term current use of insulin E11.9 ; Periumbilical abdominal pain R10.33 and Mixed hyperlipidemia E78.2 [facility] [id number] [place] [address] 07780 -7412 Aug, Periumbilical abdominal pain R10.33 and Tick bite, initial encounter W57.XXXA [facility] [place] [address] [place] [id number] [place] [address] 81393- 7709 Aug, Bipolar I disorder with depression F31.9 [facility] [place] [address] [place] [id number] [place] [address] 73942- 3056 July, Bipolar I disorder with depression F31.9 and Other stimulant dependence, 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 [facility] [place] [id number] [address]- 1105 July, [facility] [address] [place] [address] July, [facility] [place] [id number] [place] [address] 62304- 6692 July, [facility] [place] [id number] [place] [address] 74560- 2660 Jun, Bipolar I disorder with depression F31.9 [facility] [place] [id number] [place] [address] 08271- 4326 Jun, Elevated glucose R73.09 and 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75 and Other stimulant dependence, 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 [facility] [address] [id number] [place] [address] Jun [facility] [address] [place] [id number] [address] May, Other viral agents as the cause of diseases classified elsewhere B97.89 and Acute upper respiratory infection, unspecified J06.9 [facility] [place] [address] [place] [id number] [address]- 8776 May, Bipolar disorder, in partial remission, most recent episode depressed F31.75 and Other stimulant dependence, 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 [place] [id number] [address]- 0999 02 May, 2016 Bipolar 1 disorder, mixed, full remission F31.78 and Methamphetamine abuse in remission F15.10 [place] [id number] [address]- 7494 Feb, Bipolar affective disorder, remission status unspecified F31.[address] [id number] [place] [address] Feb [place] [address] [place] [id number] [place] [address] 89193- 4041 Feb, Dental examination Z01.20 [place] [address] [place] [id number] [place] [address] 54561- 9189 Jan, Bipolar 1 disorder, depressed, partial remission F31.75 [place] [address] [place] [id number] [place] [address] 61885- 4952 12 Dec, 2015 Bipolar 1 disorder, mixed, full remission F31.78 and 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 [place] [address] [place] [id number] [place] [address] 80659- 1064 11 Dec, 2015 Bipolar 1 disorder, mixed, full remission F31.78 and 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 [place] [id number] [place] [address] 20850- 1749 Oct, [place] [address] [place] [id number] [place] [address] 37720- 2494 Oct, Type 2 diabetes mellitus without complication, without long- term current use of insulin E11.9 ; Bipolar disorder, current episode manic without psychotic features, moderate F31.12 ; Essential hypertension I10 ; Venous insufficiency I87.2 and Open wound, lower leg, left, initial encounter S81.802A [place] [id number] [place] [address] 43277- 5090 Oct, [place] [address] [place] [id number] [place] [address] 99738- 1996 Oct, Bipolar affective disorder, remission status unspecified F31.9 [place] [address] [place] [id number] [place] [address] 45957- 2525 Oct, [facility] [place] [address] [place] [place] [id number] [place] [address] 11055- 2007 Sep, [place] [address] [place] [id number] [place] [address] 68613- 2268 Sep, [place] [address] [place] [id number] [place] [address] 57939- 9103 Sep, Type 2 diabetes mellitus without complication, without long- term current use of insulin E11.9 ; Essential hypertension I10 and Venous insufficiency I87.2 [facility] [place] [address] [place] [id number] [place] [address] 09460 -1767 Sep, Cellulitis of lower extremity, unspecified laterality L03.119 and Peripheral vascular disease of lower extremity I73.9 [place] [address] [place] [id number] [place] [address] 18773- 5743 Aug, [place] [address] [place] [id number] [place] [address] 04583- 4518 Aug, Bipolar affective disorder, remission status unspecified F31.9 [facility] [address] [place] [id number] [place] [address] 14480 -9647 July, Cellulitis, unspecified cellulitis site L03.90 [place] [address] [place] [id number] [place] [address] 13301- 1267 Jun, Bipolar disorder, current episode manic without psychotic features, moderate F31.12 and Other stimulant dependence, 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 [place] [address] [place] [id number] [place] [address] 48526- 7438 Jun, Essential hypertension, hypertension with unspecified goal I10 and Knee pain M25.569 [place] [address] [place] [id number] [place] [address] 93512- 2313 May, [facility] [place] [address] [address]- 6947 May, Bipolar disorder, current episode manic without psychotic features, moderate F31.12 and Essential hypertension, hypertension with unspecified goal I10 [facility] [place] [address] [place] [id number] [place] [address] 76289- 5933 May, Bipolar disorder, current episode manic without psychotic features, moderate F31.12 and Other stimulant dependence, 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 [facility] [place] [address] [place] [id number] [place] [address] 07023- 6806 Dec, [facility] [place] [address] [place] [place] [id number] [place] [address] 86745- 7908 Dec, Bipolar 1 disorder, mixed, full remission F31.78 [facility] [place] [address] [place] [place] [id number] [place] [address] 46018- 9178 Jun, [facility] [place] [address] [place] [place] [id number] [place] [address] 56242- 3919 Jun, [facility] [place] [address] [place] [place] [id number] [place] [address] 02318- 0136 May, [facility] [place] [address] [place] [place] [id number] [place] [address] 07006- 1493 May, [facility] [place] [address] [id number] [place] [address] 03971- 7932 May, [facility] [place] [address] [place] [id number] [place] [address] 67323- 5194 May, [facility] [place] [id number] [place] [address] 91917- 6258 May, [facility] [place] [address] [place] [id number] [place] [address] 79846- 8701 May, [facility] [place] [address] [address]- 3988 Mar, [facility] [place] [id number] [place] [address] 75663- 4377 Mar, [facility] [place] [facility] [address] [id number] [place] [address]- 8933 Feb, [facility] [place] [facility] [address] [id number] [place] [address]- 1231 Jan, [facility] [place] [facility] [address] [id number] [place] [address]- 7439 Jan, [facility] [place] [facility] [address] [id number] [place] [address]- 0017 Jan, [facility] [place] [facility] [address] [id number] [place] [address]- 8005 Jan, [facility] [place] [facility] [address] [id number] [place] [address]- 4635 Nov, [facility] [place] [facility] [address] [id number] [place] [address]- 0868 Nov, [facility] [place] [facility] [address] [id number] [place] [address]- 3981 Oct, [facility] [place] [facility] [address] [id number] [place] [address]- 1753 Oct, [facility] [place] [facility] [address] [id number] [place] [address]- 0982 Sep, [facility] [place] [facility] [address] [id number] [place] [address]- 8761 Sep, [facility] [place] [facility] [address] [id number] [place] [address]- 7380 Sep, [facility] [place] [facility] [address] [id number] [place] [address]- 7909 Sep, [facility] [place] [facility] [address] [id number] [place] [address]- 8925 July, [facility] [place] [facility] [address] [id number] [place] [address]- 0135 July, [facility] [place] [facility] [address] [id number] [place] [address]- 1558 July, [facility] [place] [facility] [address] [id number] [place] [address]- 7506 July, [facility] [place] [facility] [address] [id number] [place] [address]- 6629 July, [facility] [place] [facility] [address] [id number] [place] [address]- 2069 July, [facility] [place] [facility] [address] [id number] [place] [address]- 4045 July, [facility] [place] [facility] [address] [id number] [place] [address]- 8153 July, [facility] [place] [facility] [address] [id number] [place] [address]- 9113 Jun, [facility] [place] [facility] [address] [id number] [place] [address]- 7085 Jun, [facility] [place] [facility] [address] [id number] [place] [address]- 5179 Jun, [facility] [place] [facility] [address] [id number] [place] [address]- 0664 Jun, [facility] [place] [facility] [address] [id number] [place] [address]- 5242 May, [facility] [place] [facility] [address] [id number] [place] [address]- 0981 May, [facility] [place] [facility] [address] [id number] [place] [address]- 6134 May, [facility] [place] [facility] [address] [id number] [place] [address]- 6237 May, [facility] [place] [facility] [address] [id number] [place] [address]- 4030 May, [facility] [place] [facility] [address] [id number] [place] [address]- 8673 May, [facility] [place] [facility] [address] [id number] [place] [address]- 6772 May, [facility] [place] [facility] [address] [id number] [place] [address]- 0246 May, [facility] [place] [facility] [address] [id number] [place] [address]- 4136 May, [facility] [place] [facility] [address] [id number] [place] [address]- 3050 May, [facility] [place] [facility] [address] [id number] [place] [address]- 9912 May, [facility] [place] [facility] [address] [id number] [place] [address]- 7191 Mar, [facility] [place] [facility] [address] [id number] [place] [address]- 4811 Mar, [facility] [place] [facility] [address] [id number] [place] [address] Mar, [facility] [place] [facility] [address] [id number] [place] [address] Mar, [facility] [place] [facility] [address] [facility] [id number] [place] [address] Feb, [facility] [place] [facility] [address] [id number] [place] [address] Feb, [facility] [place] [facility] [address] [id number] [place] [address] Feb, [facility] [place] [facility] [address] [id number] [place] [address] Feb, [facility] [place] [facility] [address] [id number] [place] [address] Jan, [facility] [place] [facility] [address] [id number] [place] [address] Jan, [facility] [place] [facility] [address] [id number] [address] Jan, [facility] [place] [address] [id number] [address] Jan, [facility] [place] [address] [facility] [id number] [place] [address] Mar, [facility] [place] [address] [id number] [address] Mar, [facility] [place] [address] [facility] [id number] [place] [address] Feb, [facility] [place] [id number] [address] Jan, [facility] [place] [id number] [address] Dec, [facility] [place] [id number] [address] Nov, [facility] [place] [id number] [address] Oct, [facility] [place] [address] [id number] [address] Sep, [facility] [place] [address] [id number] [address] Feb, IMMUNIZATIONS No Known Immunizations SOCIAL HISTORY Never Assessed REASON FOR VISIT PRSUP-F/U PLAN OF CARE VITAL SIGNS MEDICATIONS Unknown Medications RESULTS No Results PROCEDURES Procedure Date Ordered Result Body Site Alcohol and/or drug services September 19, 2016 INSTRUCTIONS MEDICATIONS ADMINISTERED No Known Medications MEDICAL (GENERAL) HISTORY Type Description Date Medical History Bipolar disorder, current episode manic without psychotic features, moderate Medical History Essential hypertension, hypertension with unspecified goal Medical History diabetes Medical History hypercholesterolemia Surgical History Hernia repair 03/2014 Surgical History Oral Surgery 06/2014 Hospitalization History early 1999 he had inpatient stay [place] [facility] when he was experiencing SI
--- OUTSIDE RECORDS SUMMARY | 2017-08-06 10:31 | XMS REPORT ---
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 Active 021775373 Problem Type 2 diabetes mellitus without complication, without long-term current use of insulin E11.9 Active 433954935 Problem Amphetamine use disorder, 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 76109394 Problem PVD (peripheral vascular disease) I73.9 Active 501399017 Problem Mixed hyperlipidemia E78.2 Active 411810618 Problem Bipolar disorder, in partial remission, most recent episode depressed F31.75 Active 19301722 Problem Bipolar I disorder with depression F31.9 Active 33594472 Problem Methamphetamine use disorder, 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 666758081 ALLERGIES No Information ENCOUNTERS Encounter Location Date Diagnosis [place] [id number] [place] [address] 33931- 8677 Jun, [facility] [address] [place] [id number] [place] [address] 36618- 3754 Jun, [facility] [id number] [place] [address] 50615- 7766 Jun, [facility] [address] [address] [id number] [place] [address] 21406- 1737 May, Bipolar I disorder with depression F31.9 and Amphetamine use disorder, 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 [facility] [id number] [place] [address] 18778- 8317 May, Bipolar I disorder with depression F31.9 and Amphetamine use disorder, 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 [facility] [id number] [place] [address] 83261- 3922 May, [facility] [address] [id number] [place] [address] 85006- 6504 14 May, 2017 BMI 40.0-44.9, adult Z68.41 ; Methamphetamine use disorder, 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 and Bipolar I disorder with depression F31.9 [facility] [id number] [place] [address] 15461- 3800 Mar, [facility] [address] [place] [id number] [place] [address] 16018- 8113 Mar, Methamphetamine use disorder, 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 and Bipolar I disorder with depression F31.9 [place] [address] [id number] [place] [address] 39364- 1160 Mar, Methamphetamine use disorder, 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 ; Bipolar I disorder with depression F31.9 and BMI 40.0-44.9, adult Z68.41 [facility] [address] [place] [id number] [place] [address] 77362- 8642 Mar, [facility] [address] [address] Feb, Cough R05 ; Other viral agents as the cause of diseases classified elsewhere B97.89 ; Acute upper respiratory infection, unspecified J06.9 and BMI 40.0-44.9, adult Z68.41 [facility] [address] [address] 5185 Feb, [place] [address] [place] [address] [id number] [place] [address] 41729- 7746 Feb, Methamphetamine use disorder, 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 and Bipolar I disorder with depression F31.9 [facility] [id number] [place] [address] 36417- 8342 Feb, Methamphetamine use disorder, 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 ; Bipolar I disorder with depression F31.9 and BMI 40.0-44.9, adult Z68.41 [place] [address] 60851- 4813 Feb, [place] [address] 07293- 1006 Jan, Type 2 diabetes mellitus without complication, without long- term current use of insulin E11.9 [facility] [address] 15846 -9087 Jan, BMI 40.0-44.9, adult Z68.41 and Open wound of left lower leg, subsequent encounter S81.802D [facility] [place] [address] [address] 16 Jan, 2017 Abrasion T14.8XXA ; Encounter for immunization Z23 and PVD (peripheral vascular disease) I73.9 [place] [address] 47511- 1019 15 Jan, 2017 [place] [address] 96461- 8865 Jan, [place] [address] 75279- 4883 Jan, Bipolar I disorder with depression F31.9 and Other stimulant dependence, 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 [place] [address] [place] [id number] [place] [address] 15040- 1965 2016 Type 2 diabetes mellitus without complication, without long- term current use of insulin E11.9 and Essential hypertension I10 [place] [address] 12755- 2125 28 Nov, 2016 Methamphetamine use disorder, 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 and Bipolar I disorder with depression F31.9 [place] [address] 16255- 6754 26 Nov, 2016 Bipolar I disorder with depression F31.9 and Other stimulant dependence, 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 [facility] [id number] [place] [address] 56693 -4408 14 Nov, 2016 Bilateral impacted cerumen H61.23 [facility] [id number] [place] [address] 29414- 8075 12 Nov, 2016 Bipolar I disorder with depression F31.9 and Other stimulant dependence, 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 [facility] [id number] [place] [address] 44298- 8905 11 Nov, 2016 [facility] [address] [place] [id number] [place] [address] 37484- 9939 Nov, [facility] [address] [place] [address] [id number] [place] [address] 82495- 0610 Oct, Bipolar I disorder with depression F31.9 and Adderall use disorder, moderate, dependence F15.20 [facility] [address] [place] [address] [id number] [place] [address] 22196- 6029 Oct, Bipolar I disorder with depression F31.9 and Methamphetamine use disorder, 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 [facility] [address] [place] [id number] [place] [address] 83810- 8858 Oct, [facility] [address] [address] [id number] [place] [address] 37263- 2738 Sep, [facility] [id number] [place] [address] 11089- 3552 Sep, Bipolar I disorder with depression F31.9 [facility] [address] [place] [id number] [place] [address] 53363- 3957 Sep, Bipolar I disorder with depression F31.9 and Methamphetamine use disorder, 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 [facility] [address] [place] [id number] [place] [address] 55510- 2921 Sep, Bipolar I disorder with depression F31.9 and Other stimulant dependence, 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 [facility] [id number] [place] [address] 58973- 8901 Sep, [facility] [id number] [place] [address] 77595- 8080 Sep, [facility] [address] [place] [id number] [place] [address] 79004- 7027 Sep, Tick bite, initial encounter W57.XXXA [facility] [address] [place] [id number] [place] [address] 04621- 8063 Aug, [facility] [address] [id number] [place] [address] 82197- 6756 Aug, [facility] [address] [place] [id number] [place] [address] 40519- 2249 Aug, Bipolar I disorder with depression F31.9 and Other stimulant dependence, 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 [facility] [address] [place] [address] Aug, [facility] [address] [place] [address] [id number] [place] [address] 24916- 4127 Aug, [facility] [address] [place] [address] Aug, [facility] [address] [place] [id number] [place] [address] 87006- 7893 Aug, [facility] [address] [place] [id number] [place] [address] 70098- 6911 Aug, Elevated glucose R73.09 ; Type 2 diabetes mellitus without complication, without long-term current use of insulin E11.9 ; Periumbilical abdominal pain R10.33 and Mixed hyperlipidemia E78.2 [facility] [id number] [place] [address] 54825 -0328 Aug, Periumbilical abdominal pain R10.33 and Tick bite, initial encounter W57.XXXA [facility] [address] [place] [id number] [place] [address] 67816- 3475 Aug, Bipolar I disorder with depression F31.9 [facility] [address] [place] [id number] [place] [address] 46453- 1283 July, Bipolar I disorder with depression F31.9 and Other stimulant dependence, 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 [address] [place] [address] July, [facility] [id number] [place] [address] 99292- 1609 July, [facility] [id number] [place] [address] 29231- 3472 Jun, Bipolar I disorder with depression F31.9 [facility] [id number] [place] [address] 53641- 4529 Jun, Elevated glucose R73.09 and Other fdc (current) drug therapy Z79.899 [facility] [id number] [place] [address] 20347- 8102 Jun, Bipolar I disorder with depression F31.9 and Other fdc (current) drug therapy Z79.899 [facility] [address] [address]- 4720 Jun, [facility] [id number] [place] [address] 92717- 2057 Jun, Bipolar disorder, in partial remission, most recent episode depressed F31.75 and Other stimulant dependence, 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 [facility] [address] [id number] [place] [address] Jun [facility] [address] [place] [id number] [address] May, Other viral agents as the cause of diseases classified elsewhere B97.89 and Acute upper respiratory infection, unspecified J06.9 [facility] [address] [place] [id number] [address]- 1775 May, Bipolar disorder, in partial remission, most recent episode depressed F31.75 and Other stimulant dependence, 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 [place] [address] [address]- 3095 02 May, 2016 Bipolar 1 disorder, mixed, full remission F31.78 and Methamphetamine abuse in remission F15.10 [place] [address] [address]- 3158 Feb, Bipolar affective disorder, remission status unspecified F31.[address] [id number] [place] [address] Feb [place] [address] [place] [id number] [place] [address] 12189- 2417 Feb, Dental examination Z01.20 [place] [address] [place] [id number] [place] [address] 79820- 9799 Jan, Bipolar 1 disorder, depressed, partial remission F31.75 [place] [address] [place] [id number] [place] [address] 54859- 5041 12 Dec, 2015 Bipolar 1 disorder, mixed, full remission F31.78 and Other fdc (current) drug therapy Z79.899 [place] [address] [place] [id number] [place] [address] 20210- 5420 11 Dec, 2015 Bipolar 1 disorder, mixed, full remission F31.78 and 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 [place] [id number] [place] [address] 05692- 1849 Oct, [place] [address] [place] [id number] [place] [address] 80660- 6046 Oct, Type 2 diabetes mellitus without complication, without long- term current use of insulin E11.9 ; Bipolar disorder, current episode manic without psychotic features, moderate F31.12 ; Essential hypertension I10 ; Venous insufficiency I87.2 and Open wound, lower leg, left, initial encounter S81.802A [place] [address] [place] [address] 09373- 4320 Oct, [place] [address] [place] [id number] [place] [address] 35182- 0078 Oct, Bipolar affective disorder, remission status unspecified F31.9 [place] [address] [place] [id number] [place] [address] 88201- 3764 Oct, [facility] [address] [place] [id number] [place] [address] 15507- 1835 Sep, [place] [address] [place] [id number] [place] [address] 90170- 3595 Sep, [place] [address] [place] [id number] [place] [address] 84220- 8934 Sep, Type 2 diabetes mellitus without complication, without long- term current use of insulin E11.9 ; Essential hypertension I10 and Venous insufficiency I87.2 [facility] [place] [address] [place] [id number] [place] [address] 80577 -8991 Sep, Cellulitis of lower extremity, unspecified laterality L03.119 and Peripheral vascular disease of lower extremity I73.9 [place] [address] [place] [id number] [place] [address] 74465- 9347 Aug, [place] [address] [place] [id number] [place] [address] 84863- 0328 Aug, Bipolar affective disorder, remission status unspecified F31.9 [facility] [address] [place] [id number] [place] [address] 83181 -6967 July, Cellulitis, unspecified cellulitis site L03.90 [place] [address] [place] [id number] [place] [address] 63927- 2311 Jun, Bipolar disorder, current episode manic without psychotic features, moderate F31.12 and Other stimulant dependence, 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 [place] [address] [place] [id number] [place] [address] 81276- 9253 Jun, Essential hypertension, hypertension with unspecified goal I10 and Knee pain M25.569 [place] [address] [place] [id number] [place] [address] 59919- 0447 May, [facility] [address] [address]- 4449 May, Bipolar disorder, current episode manic without psychotic features, moderate F31.12 and Essential hypertension, hypertension with unspecified goal I10 [facility] [address] [place] [id number] [place] [address] 03517- 6417 May, Bipolar disorder, current episode manic without psychotic features, moderate F31.12 and Other stimulant dependence, 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 [facility] [address] [place] [id number] [place] [address] 37144- 9163 Dec, [facility] [address] [place] [id number] [place] [address] 73049- 0230 Dec, Bipolar 1 disorder, mixed, full remission F31.78 [facility] [address] [place] [id number] [place] [address] 67235- 8038 Jun, [facility] [address] [place] [id number] [place] [address] 32923- 0851 Jun, [facility] [address] [place] [id number] [place] [address] 85921- 2219 May, [facility] [address] [place] [id number] [place] [address] 67541- 7290 May, [facility] [address] [place] [id number] [place] [address] 82582- 3999 May, [facility] [address] [place] [id number] [place] [address] 57945- 2047 May, [facility] [id number] [place] [address] 16154- 9138 May, [facility] [address] [place] [id number] [place] [address] 14804- 3643 May, [facility] [address] [address]- 4717 Mar, [facility] [address] [place] [id number] [place] [address] 62032- 0501 Mar, [facility] [place] [facility] [address] [id number] [place] [address]- 7696 Feb, [facility] [place] [facility] [address] [id number] [place] [address]- 0368 Jan, [facility] [place] [facility] [address] [id number] [place] [address]- 8311 Jan, [facility] [place] [facility] [address] [id number] [place] [address]- 2103 Jan, [facility] [place] [facility] [address] [id number] [place] [address]- 2794 Jan, [facility] [place] [facility] [address] [id number] [place] [address]- 8867 Nov, [facility] [place] [facility] [address] [id number] [place] [address]- 4471 Nov, [facility] [place] [facility] [address] [id number] [place] [address]- 7290 Oct, [facility] [place] [facility] [address] [id number] [place] [address]- 9602 Oct, [facility] [place] [facility] [address] [id number] [place] [address]- 7265 Sep, [facility] [place] [facility] [address] [id number] [place] [address]- 6310 Sep, [facility] [place] [facility] [address] [id number] [place] [address]- 1608 Sep, [facility] [place] [facility] [address] [id number] [place] [address]- 2041 Sep, [facility] [place] [facility] [address] [id number] [place] [address]- 0319 July, [facility] [place] [facility] [address] [id number] [place] [address]- 0838 July, [facility] [place] [facility] [address] [id number] [place] [address]- 8411 July, [facility] [place] [facility] [address] [id number] [place] [address]- 9055 July, [facility] [place] [facility] [address] [id number] [place] [address]- 3678 July, [facility] [place] [facility] [address] [id number] [place] [address]- 0245 July, [facility] [place] [facility] [address] [id number] [place] [address]- 7879 July, [facility] [place] [facility] [address] [id number] [place] [address]- 9241 July, [facility] [place] [facility] [address] [id number] [place] [address]- 9695 Jun, [facility] [place] [facility] [address] [id number] [place] [address]- 8274 Jun, [facility] [place] [facility] [address] [id number] [place] [address]- 9977 Jun, [facility] [place] [facility] [address] [id number] [place] [address]- 6810 Jun, [facility] [place] [facility] [address] [id number] [place] [address]- 9519 May, [facility] [place] [facility] [address] [id number] [place] [address]- 4296 May, [facility] [place] [facility] [address] [id number] [place] [address]- 2745 May, [facility] [place] [facility] [address] [id number] [place] [address]- 1092 May, [facility] [place] [facility] [address] [id number] [place] [address]- 3694 May, [facility] [place] [facility] [address] [id number] [place] [address]- 1985 May, [facility] [place] [facility] [address] [id number] [place] [address]- 8882 May, [facility] [place] [facility] [address] [id number] [place] [address]- 6846 May, [facility] [place] [facility] [address] [id number] [place] [address]- 4286 May, [facility] [place] [facility] [address] [id number] [place] [address]- 4754 May, [facility] [place] [facility] [address] [id number] [place] [address]- 1847 May, [facility] [place] [facility] [address] [id number] [place] [address]- 5404 Mar, [facility] [place] [facility] [address] [id number] [place] [address]- 8292 Mar, [facility] [place] [facility] [address] [id number] [place] [address]- 4338 Mar, [facility] [place] [facility] [address] [id number] [place] [address]- 0216 Mar, [facility] [place] [facility] [address] [facility] [id number] [place] [address]- 0026 Feb, [facility] [place] [facility] [address] [id number] [place] [address]- 5067 Feb, [facility] [place] [facility] [address] [id number] [place] [address]- 6921 Feb, [facility] [place] [facility] [address] [id number] [place] [address]- 4193 Feb, [facility] [place] [facility] [address] [id number] [place] [address]- 3957 Jan, [facility] [place] [facility] [address] [id number] [place] [address]- 9871 Jan, [facility] [place] [facility] [id number] [address]- 4994 Jan, [facility] [id number] [address]- 4675 Jan, [facility] [address] [facility] [id number] [address]- 6815 Mar, [facility] [id number] [address]- 9340 Mar, [facility] [address] [address]- 9426 Feb, [facility] [address] [address]- 6595 Jan, [facility] [address] [address]- 3969 Dec, [facility] [address] [address]- 6216 Nov, [facility] [id number] [address]- 0257 Oct, [facility] [id number] [address] Sep, [facility] [address] [id number] [address] Feb, IMMUNIZATIONS No Known Immunizations SOCIAL HISTORY Never Assessed REASON FOR VISIT SOCWK-F/U PLAN OF CARE VITAL SIGNS MEDICATIONS Unknown [...] early 1999 he had inpatient stay [place] [facility] [place] when he was experiencing SI
--- OUTSIDE RECORDS SUMMARY | 2017-08-06 10:31 | XMS REPORT ---
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 Active 769576838 Problem Type 2 diabetes mellitus without complication, without long-term current use of insulin E11.9 Active 899379977 Problem Amphetamine use disorder, 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 41964494 Problem PVD (peripheral vascular disease) I73.9 Active 438171906 Problem Mixed hyperlipidemia E78.2 Active 602723087 Problem Bipolar disorder, in partial remission, most recent episode depressed F31.75 Active 54264869 Problem Bipolar I disorder with depression F31.9 Active 54069558 Problem Methamphetamine use disorder, 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 596678210 ALLERGIES No Information ENCOUNTERS Encounter Location Date Diagnosis [place] [id number], [place] [address] July, [place] [address] [place] [id number] [place] [address] 45061- 0214 July, [place] [address], [place] [address] May, Bipolar I disorder with depression F31.9 and Amphetamine use disorder, 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 [facility] [address], [place] [address] May, Bipolar I disorder with depression F31.9 and Amphetamine use disorder, 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 [place] [address] [id number] [address] May, [place] [address] [place] [id number] [place] [address] 09230- 1613 14 May, 2017 BMI 40.0-44.9, adult Z68.41 ; Methamphetamine use disorder, 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 and Bipolar I disorder with depression F31.9 [place] [address] [place] [id number] [place] [address] 36536- 1862 Mar, [place] [address] [place] [id number] [place] [address] 81196- 7503 Mar, Methamphetamine use disorder, 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 and Bipolar I disorder with depression F31.9 [place] [address] [place] [id number] [place] [address] 94978- 1140 Mar, Methamphetamine use disorder, 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 ; Bipolar I disorder with depression F31.9 and BMI 40.0-44.9, adult Z68.41 [place] [address] [place] [id number] [place] [address] 42171- 2708 Mar, [facility] [address] [place] [address] [id number] [place] [address] 55182 -6090 Feb, Cough R05 ; Other viral agents as the cause of diseases classified elsewhere B97.89 ; Acute upper respiratory infection, unspecified J06.9 and BMI 40.0-44.9, adult Z68.41 [place] [address] [place] [id number] [place] [address] 64796- 7230 Feb, [place] [address] [place] [id number] [place] [address] 19721- 5756 Feb, Methamphetamine use disorder, 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 and Bipolar I disorder with depression F31.9 [place] [address] [place] [id number] [place] [address] 84427- 0677 Feb, Methamphetamine use disorder, 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 ; Bipolar I disorder with depression F31.9 and BMI 40.0-44.9, adult Z68.41 [place] [address] [place] [id number] [place] [address] 06885- 4788 Feb, [place] [address] [address]- [address] Jan, Type 2 diabetes mellitus without complication, without long- term current use of insulin E11.9 [facility] [address] [address]04 Jan, BMI 40.0-44.9, adult Z68.41 and Open wound of left lower leg, subsequent encounter S81.802D [facility] [place] [address] 7[address] -7517 16 Jan, 2017 Abrasion T14.8XXA ; Encounter for immunization Z23 and PVD (peripheral vascular disease) I73.9 [place] [address] [address]2750- 1174 Jan, [place] [address] 07851- 3877 Jan, [place] [address] 41102- 6255 Jan, Bipolar I disorder with depression F31.9 and Other stimulant dependence, 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 [place] [address] [place] [id number] [place] [address] 46251- 1944 2016 Type 2 diabetes mellitus without complication, without long- term current use of insulin E11.9 and Essential hypertension I10 [place] [address] [place] [address] [id number] [place] [address] 05236- 0302 28 Nov, 2016 Methamphetamine use disorder, 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 and Bipolar I disorder with depression F31.9 [place] [address] 73336- 2418 26 Nov, 2016 Bipolar I disorder with depression F31.9 and Other stimulant dependence, 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 [facility] [address] 26636 -6329 14 Nov, 2016 Bilateral impacted cerumen H61.23 [facility] [address], [place] [address]32 Nov, Bipolar I disorder with depression F31.9 and Other stimulant dependence, 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 [facility] [address] [place] [address] [id number] [place] [address] 02889- 3028 Nov, [facility] [address] [place] [address] [id number] [place] [address] 64230- 3221 Nov, [facility] [address] [place] [address] [id number] [place] [address] 71821- 4754 Oct, Bipolar I disorder with depression F31.9 and Adderall use disorder, moderate, dependence F15.20 [facility] [address] [place] [address] [id number] [place] [address] 71194- 4564 Oct, Bipolar I disorder with depression F31.9 and Methamphetamine use disorder, 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 [facility] [address] [place] [id number] [place] [address] 77288- 6092 Oct, [facility] [id number] [place] [address] 74073- 4725 Sep, [facility] [address] [place] [address] 58531- 0299 Sep, Bipolar I disorder with depression F31.9 [facility] [address] [place] [address] 84401- 3257 Sep, Bipolar I disorder with depression F31.9 and Methamphetamine use disorder, 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 [facility] [address] [place] [id number] [address]- 2476 Sep, Bipolar I disorder with depression F31.9 and Other stimulant dependence, 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 [facility] [address], [place] [address]- 8487 Sep, [facility] [address] [place] [id number] [place] [address] 30786- 1220 Sep, [facility] [address] [place] [address] 56286- 8994 Sep, Tick bite, initial encounter W57.XXXA [facility] [address] [place] [id number] [place] [address] 30430- 1617 Aug, [facility] [address] [place] [id number] [place] [address] 66788- 3441 Aug, [facility] [address] 00198- 1790 Aug, Bipolar I disorder with depression F31.9 and Other stimulant dependence, 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 [facility] [address] [place] [address] Aug, [facility] [address] [place] [id number] [place] [address] 13678- 0851 Aug, [facility] [address] [place] [address] Aug, [facility] [address] [place] [id number] [place] [address] 31664- 7132 Aug, [facility] [address] [place] [id number] [place] [address] 99802- 3525 Aug, Elevated glucose R73.09 ; Type 2 diabetes mellitus without complication, without long-term current use of insulin E11.9 ; Periumbilical abdominal pain R10.33 and Mixed hyperlipidemia E78.2 [facility] [address] [place] [id number] [place] [address] 40466 -1445 Aug, Periumbilical abdominal pain R10.33 and Tick bite, initial encounter W57.XXXA [place] [address] [place] [address] [id number] [place] [address] 68739- 3624 Aug, Bipolar I disorder with depression F31.9 [facility] [address] [place] [id number] [place] [address] 04166- 7393 July, Bipolar I disorder with depression F31.9 and Other stimulant dependence, 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 [facility] [address] [place] [id number] [address] 3827 July, [facility] [address] [place] [address] July, [facility] [address], [place] [address]- 9251 July, [facility] [address], [place] [address]- 5073 Jun, Bipolar I disorder with depression F31.9 [facility] [address], [place] [address]- 0985 Jun, Elevated glucose R73.09 and Other care home (current) drug therapy Z79.899 [facility] [address], [place] [address]- 0189 Jun, Bipolar I disorder with depression F31.9 and 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 [place] [address], [place] [address]- 6223 Jun, [facility] [address], [place] [address]- 7276 Jun, Bipolar disorder, in partial remission, most recent episode depressed F31.75 and Other stimulant dependence, 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 [facility] [place] [id number] [place] [address] Jun [facility] [address], [place] [address] May, Other viral agents as the cause of diseases classified elsewhere B97.89 and Acute upper respiratory infection, unspecified J06.9 [facility] [address], [place] [address]- 7386 May, Bipolar disorder, in partial remission, most recent episode depressed F31.75 and Other stimulant dependence, 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 [facility] [address], [place] [address]- 4390 May, Bipolar 1 disorder, mixed, full remission F31.78 and Methamphetamine abuse in remission F15.10 [place] [address], [place] [address]- 9916 Feb, Bipolar affective disorder, remission status unspecified F31.9 [facility] SH[place] Duran JEFFREY URBINA [id number] [place] [address] 14 Feb [place] [address] [place] [address] 74774- 9628 14 Feb, 2016 Dental examination Z01.20 [place] [address], [place] [address]- 3272 16 Jan, 2016 Bipolar 1 disorder, depressed, partial remission F31.75 [place] [address] [place] [address] 50038- 8532 12 Dec, 2015 Bipolar 1 disorder, mixed, full remission F31.78 and 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 [place] [address] [place] [address] 08746- 1005 Dec, Bipolar 1 disorder, mixed, full remission F31.78 and Other care home (current) drug therapy Z79.899 [place] [address] [place] [address] 98315- 4961 Oct, [place] [address] [place] [address] 83593- 8029 Oct, Type 2 diabetes mellitus without complication, without long- term current use of insulin E11.9 ; Bipolar disorder, current episode manic without psychotic features, moderate F31.12 ; Essential hypertension I10 ; Venous insufficiency I87.2 and Open wound, lower leg, left, initial encounter S81.802A [place] [address] [place] [address] 13143- 2180 Oct, [place] [address], [place] [address]- 9559 Oct, Bipolar affective disorder, remission status unspecified F31.9 [place] [address] [place] [id number], [place] [address]- 2784 Oct, [facility] [address] [place] [id number] [place] [address] 10317- 5672 Sep, [facility] [address] [place] [id number] [place] [address] 26309- 0998 Sep, [place] [address] [place] [id number] [place] [address] 10787- 1951 Sep, Type 2 diabetes mellitus without complication, without long- term current use of insulin E11.9 ; Essential hypertension I10 and Venous insufficiency I87.2 [facility] [place] [address] [place] [id number] [place] [address] 93534 -8819 Sep, Cellulitis of lower extremity, unspecified laterality L03.119 and Peripheral vascular disease of lower extremity I73.9 [place] [address] [place] [id number] [place] [address] 98065- 5944 Aug, [place] [address] [place] [id number] [place] [address] 26150- 4662 Aug, Bipolar affective disorder, remission status unspecified F31.9 [place] [address] [place] [id number] [place] [address] 74994 -8923 July, Cellulitis, unspecified cellulitis site L03.90 [place] [address] [place] [id number] [place] [address] 61449- 7410 Jun, Bipolar disorder, current episode manic without psychotic features, moderate F31.12 and Other stimulant dependence, 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 [place] [address] [place] [id number] [place] [address] 28148- 6313 Jun, Essential hypertension, hypertension with unspecified goal I10 and Knee pain M25.569 [place] [address] [place] [id number] [place] [address] 07695- 8218 May, [place] [address] [place] [id number] [place] [address] 48356- 0996 May, Bipolar disorder, current episode manic without psychotic features, moderate F31.12 and Essential hypertension, hypertension with unspecified goal I10 [facility] [address] [place] [id number] [place] [address] 26554- 0240 May, Bipolar disorder, current episode manic without psychotic features, moderate F31.12 and Other stimulant dependence, 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 [facility] [address] [place] [id number] [place] [address] 64415- 7043 Dec, [facility] [address] [place] [id number] [place] [address] 96021- 2907 Dec, Bipolar 1 disorder, mixed, full remission F31.78 [facility] [address] 47772- 6782 Jun, [facility] [address] [place] [id number] [place] [address] 21579- 3435 Jun, [facility] [address] [place] [id number] [place] [address] 37877- 4659 May, [facility] [address] [place] [id number] [place] [address] 29823- 8742 May, [facility] [address] [place] [id number] [place] [address] 64938- 4930 May, [facility] [address] [place] [id number] [place] [address] 92488- 1500 May, [facility] [address] [place] [id number] [place] [address] 52650- 5459 May, [facility] [address] [place] [id number] [place] [address] 32573- 9158 May, [facility] [address] [place] [id number] [place] [address] 61800- 3309 Mar, [facility] [address] [place] [id number] [place] [address] 46852- 4473 Mar, [facility] [address] [place] [id number] [place] [address] 82093- 5339 Feb, [facility] [place] [facility] [address] [id number] [place] [address]- 4920 Jan, [facility] [place] [facility] [address] [id number] [place] 0400 Jan, [facility] [place] [facility] [address] [id number] [place] [address]- 0286 Jan, [facility] [place] [facility] [address] [id number] [place] [address]- 9931 Jan, [facility] [place] [facility] [address] [id number] [place] [address]- 3221 Nov, [facility] [place] [facility] [address] [id number] [place] [address]- 1965 Nov, [facility] [place] [facility] [address] [id number] [place] [address]- 9842 Oct, [facility] [place] [facility] [address] [id number] [place] [address]- 7085 Oct, [facility] [place] [facility] [address] [id number] [place] [address]- 2393 Sep, [facility] [place] [facility] [address] [id number] [place] [address]- 8946 Sep, [facility] [place] [facility] [address] [id number] [place] [address]- 3595 Sep, [facility] [place] [facility] [address] [id number] [place] [address]- 7889 Sep, [facility] [place] [facility] [address] [id number] [place] [address]- 1635 July, [facility] [place] [facility] [address] [id number] [place] [address]- 3093 July, [facility] [place] [facility] [address] [id number] [place] [address]- 7933 July, [facility] [place] [facility] [address] [id number] [place] [address]- 8800 July, [facility] [address] [id number] [place] [address]- 9410 July, [facility] [place] [facility] [address] [id number] [place] [address]- 0180 July, [facility] [address] [id number] [place] [address]- 5639 July, [facility] [place] [facility] [address] [id number] [place] [address]- 5767 July, [facility] [place] [facility] [address] [id number] [place] [address]- 4985 Jun, [facility] [place] [facility] [address] [id number] [place] [address]- 1792 Jun, [facility] [place] [facility] [address] [id number] [place] [address]- 6425 Jun, [facility] [address] [id number] [place] [address]- 3978 Jun, [facility] [place] [facility] [address] [id number] [place] [address]- 4529 May, [facility] [place] [facility] [address] [id number] [place] [address]- 4804 May, [facility] [place] [facility] [address] [id number] [place] [address]- 4002 May, [facility] [place] [facility] [address] [id number] [place] [address]- 8841 May, [facility] [place] [facility] [address] [id number] [place] [address]- 1699 May, [facility] [place] [facility] [address] [id number] [place] [address]- 9741 May, [facility] [place] [facility] [address] [id number] [place] [address]- 8673 May, [facility] [place] [facility] [address] [id number] [place] [address]- 6499 May, [facility] [place] [facility] [address] [id number] [place] [address]- 3686 May, [facility] [place] [facility] [address] [id number] [place] [address]- 4716 May, [facility] [place] [facility] [address] [id number] [place] [address]- 7963 May, [facility] [place] [facility] [address] [id number] [place] [address]- 7448 Mar, [facility] [place] [facility] [address] [id number] [place] [address]- 8640 Mar, [facility] [place] [facility] [address] [id number] [place] [address]- 0125 Mar, [facility] [place] [facility] [address] [id number] [place] [address]- 5624 Mar, [facility] [place] [facility] [address] [id number] [place] [address]- 9830 Feb, [facility] [place] [facility] [address] [id number] [place] [address]- 9349 Feb, [facility] [place] [facility] [address] [id number] [place] [address]- 6080 Feb, [facility] [place] [facility] [address] [id number] [place] [address]- 3774 Feb, [facility] [place] [facility] [address] [id number] [place] [address]- 5819 Jan, [facility] [place] [facility] [address] [id number] [place] [address]- 1782 Jan, [facility] [place] [facility] [address] [id number] [place] [address]- 3017 Jan, [facility] [place] [facility] [id number] [address]- 2546 Jan, [facility] [id number] [address]- 9196 Mar, [facility] [address], [place] [address]- 2546 Mar, [facility] [id number], [place] [address]- 9616 Feb, [facility] [address], [place] [address]- 2546 Jan, [facility] [address], [place] [address]- 2546 Dec, [facility] [address], [place] [address]- 2546 Nov, [facility] [address], [place] [address]- 2546 Oct, [facility] [id number] [address]- 8746 Sep, [facility] [id number] [address]- 7086 Feb, IMMUNIZATIONS No Known Immunizations SOCIAL HISTORY Never Assessed REASON FOR VISIT BH f/u, Depression and methamphetamine usage. PLAN OF CARE Activity Details Follow Up 2 Weeks Reason:depression VITAL SIGNS MEDICATIONS Unknown Medications RESULTS No Results PROCEDURES Procedure Date Ordered Result Body Site [facility] VIS[facility] MENTAL HEALTH ESTAB PT Dec 10, 2016 Psychotherapy, patient &/family, 30 minutes, established patient Dec 10, 2016 INSTRUCTIONS MEDICATIONS ADMINISTERED No Known Medications MEDICAL (GENERAL) HISTORY Type Description Date Medical History Bipolar disorder, current episode manic without psychotic features, moderate Medical History Essential hypertension, hypertension with unspecified goal Medical History diabetes Medical History hypercholesterolemia Surgical History Hernia repair 03/2014 Surgical History Oral Surgery 06/2014 Hospitalization History early 1999 he had inpatient stay at [facility] when he was experiencing SI
--- OUTSIDE RECORDS SUMMARY | 2017-08-06 10:32 | XMS REPORT ---
Author Author CINDY YOU Organization [employer] Address Unknown Phone Unavailable Care Team Providers Care Smash Piecer Name Role Phone CINDY YOU CP Unavailable Allergies, Adverse Reactions, Alerts Substance Reaction Event Type N.K.D.A. Info Not Available Non Drug Allergy Problems Problem Type Condition Code Onset Dates Condition Status Problem Essential hypertension, benign 401.1 Active Assessment Bipolar 1 disorder, mixed, full remission F31.78 Active Problem Herpes zoster without mention of complication 053.9 Active Medications Medication Code System Code Instructions Start Date End Date Status Dosage Latuda [facility] [address]-84 40 MG Orally Once a day Dec 29, 2014 1 tablet with food Procedures Procedure Coding System Code Date Office Visit, Est Pt., Level 3 CPT-4 43713 Dec 29, 2014 [facility] VISIT ESTABLISHED PATIENT CPT-4 G0467 Dec 29, 2014 Vital Signs Date/Time: Dec 29, 2014 Cardiac Monitoring Heart Rate 80 bpm Weight 307.5 lbs Height 71 in BMI 42.88 Index Blood Pressure Diastolic 80 mmHg Blood Pressure Systolic 145 mmHg Results No Known Results Summary Purpose [employer] Submission
--- OUTSIDE RECORDS SUMMARY | 2017-08-06 10:32 | XMS REPORT ---
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 Active 556455325 Problem Type 2 diabetes mellitus without complication, without long-term current use of insulin E11.9 Active 332353964 Problem Amphetamine use disorder, 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 83279648 Problem PVD (peripheral vascular disease) I73.9 Active 081330098 Problem Mixed hyperlipidemia E78.2 Active 670620387 Problem Bipolar disorder, in partial remission, most recent episode depressed F31.75 Active 76854117 Problem Bipolar I disorder with depression F31.9 Active 52241008 Problem Methamphetamine use disorder, 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 053207330 ALLERGIES No Information ENCOUNTERS Encounter Location Date Diagnosis [place] [id number] [place] [address] 87669- 1106 Jun, [facility] [id number] [place] [address] 65719- 1181 Jun, [facility] [id number] [place] [address] 40304- 8902 Jun, [place] [id number] [place] [address] 29995- 8258 May, Bipolar I disorder with depression F31.9 and Amphetamine use disorder, 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 [place] [id number] [place] [address] 95738- 7627 May, Bipolar I disorder with depression F31.9 and Amphetamine use disorder, 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 [facility] [id number] [place] [address] 42574- 8346 May, [facility] [id number] [place] [address] 24948- 5992 14 May, 2017 BMI 40.0-44.9, adult Z68.41 ; Methamphetamine use disorder, 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 and Bipolar I disorder with depression F31.9 [facility] [id number] [place] [address] 22180- 2619 Mar, [facility] [address] [id number] [place] [address] 92713- 7595 Mar, Methamphetamine use disorder, 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 and Bipolar I disorder with depression F31.9 [place] [id number] [place] [address] 00953- 0014 Mar, Methamphetamine use disorder, 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 ; Bipolar I disorder with depression F31.9 and BMI 40.0-44.9, adult Z68.41 [facility] [address] [id number] [place] [address] 06729- 5011 Mar, [facility] [address] [address] Feb, Cough R05 ; Other viral agents as the cause of diseases classified elsewhere B97.89 ; Acute upper respiratory infection, unspecified J06.9 and BMI 40.0-44.9, adult Z68.41 [facility] [address] [address] 8559 Feb, [place] [address] [place] [address] [id number] [place] [address] 82842- 4560 Feb, Methamphetamine use disorder, 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 and Bipolar I disorder with depression F31.9 [facility] [id number] [place] [address] 50804- 0968 Feb, Methamphetamine use disorder, 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 ; Bipolar I disorder with depression F31.9 and BMI 40.0-44.9, adult Z68.41 [place] [address] 13519- 8678 Feb, [place] [address] [address]49- 1981 Jan, Type 2 diabetes mellitus without complication, without long- term current use of insulin E11.9 [facility] [address] 63423 -5574 Jan, BMI 40.0-44.9, adult Z68.41 and Open wound of left lower leg, subsequent encounter S81.802D [facility] [place] [address] [address] -3174 16 Jan, 2017 Abrasion T14.8XXA ; Encounter for immunization Z23 and PVD (peripheral vascular disease) I73.9 [place] [address] 73301- 4836 15 Jan, 2017 [place] [address] 13830- 4674 Jan, [place] [address] 51864- 6416 Jan, Bipolar I disorder with depression F31.9 and Other stimulant dependence, 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 [place] [address] [place] [id number] [place] [address] 33891- 7372 2016 Type 2 diabetes mellitus without complication, without long- term current use of insulin E11.9 and Essential hypertension I10 [place] [address] 57485- 1253 28 Nov, 2016 Methamphetamine use disorder, 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 and Bipolar I disorder with depression F31.9 [place] [address] 67756- 9899 26 Nov, 2016 Bipolar I disorder with depression F31.9 and Other stimulant dependence, 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 [facility] [id number] [place] [address] 24931 -9773 14 Nov, 2016 Bilateral impacted cerumen H61.23 [facility] [address] [id number] [place] [address] 44854- 9981 12 Nov, 2016 Bipolar I disorder with depression F31.9 and Other stimulant dependence, 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 [facility] [id number] [place] [address] 65829- 7063 11 Nov, 2016 [facility] [id number] [place] [address] 03433- 5289 Nov, [facility] [id number] [place] [address] 74889- 4570 Oct, Bipolar I disorder with depression F31.9 and Adderall use disorder, moderate, dependence F15.20 [facility] [address] [id number] [place] [address] 45680- 6347 Oct, Bipolar I disorder with depression F31.9 and Methamphetamine use disorder, 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 [facility] [id number] [place] [address] 76486- 1358 Oct, [facility] [id number] [place] [address] 83006- 1296 Sep, [facility] [id number] [place] [address] 16139- 1620 Sep, Bipolar I disorder with depression F31.9 [facility] [id number] [place] [address] 99097- 3797 Sep, Bipolar I disorder with depression F31.9 and Methamphetamine use disorder, 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 [facility] [id number] [place] [address] 40002- 8210 Sep, Bipolar I disorder with depression F31.9 and Other stimulant dependence, 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 [facility] [id number] [place] [address] 04802- 3881 Sep, [facility] [id number] [place] [address] 91747- 9775 Sep, [facility] [id number] [place] [address] 52111- 3011 Sep, Tick bite, initial encounter W57.XXXA [facility] [id number] [place] [address] 14591- 9031 Aug, [facility] [id number] [place] [address] 03473- 3517 Aug, [facility] [address] [place] [id number] [place] [address] 11161- 9253 Aug, Bipolar I disorder with depression F31.9 and Other stimulant dependence, 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 [facility] [address] [place] [address] Aug, [facility] [address] [place] [id number] [place] [address] 34139- 7601 Aug, [facility] [address] [place] [address] Aug, [facility] [address] [place] [id number] [place] [address] 49204- 7024 Aug, [facility] [address] [id number] [place] [address] 23105- 6971 Aug, Elevated glucose R73.09 ; Type 2 diabetes mellitus without complication, without long-term current use of insulin E11.9 ; Periumbilical abdominal pain R10.33 and Mixed hyperlipidemia E78.2 [facility] [id number] [place] [address] 11253 -6280 Aug, Periumbilical abdominal pain R10.33 and Tick bite, initial encounter W57.XXXA [facility] [address] [place] [id number] [place] [address] 89088- 6550 Aug, Bipolar I disorder with depression F31.9 [facility] [address] [id number] [place] [address] 08894- 3167 July, Bipolar I disorder with depression F31.9 and Other stimulant dependence, 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 [facility] [address] [address]- 2130 July, [facility] [address] [place] [address] July, [facility] [id number] [place] [address] 12738- 8548 July, [facility] [id number] [place] [address] 22360- 2461 Jun, Bipolar I disorder with depression F31.9 [facility] [id number] [place] [address] 28467- 5193 Jun, Elevated glucose R73.09 and 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.899 [facility] [id number] [place] [address] 09032- 6875 Jun, Bipolar I disorder with depression F31.9 and Other assisted (current) drug therapy Z79.899 [facility] [address], [place] [address]- 1562 Jun, [facility] [id number] [place] [address] 65350- 9631 Jun, Bipolar disorder, in partial remission, most recent episode depressed F31.75 and Other stimulant dependence, 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 [facility] [address] [id number] [place] [address] Jun [facility] [address] [id number], [place] [address] May, Other viral agents as the cause of diseases classified elsewhere B97.89 and Acute upper respiratory infection, unspecified J06.9 [facility] [address] [place] [id number] [address]- 8470 May, Bipolar disorder, in partial remission, most recent episode depressed F31.75 and Other stimulant dependence, 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 [place] [address] [address]- 0914 02 May, 2016 Bipolar 1 disorder, mixed, full remission F31.78 and Methamphetamine abuse in remission F15.10 [place] [address], [place] [address]- 6201 Feb, Bipolar affective disorder, remission status unspecified F31.[address] [id number] [place] [address] Feb [place] [address] [place] [id number] [place] [address] 52847- 8938 Feb, Dental examination Z01.20 [place] [address] [place] [id number] [place] [address] 32364- 1911 Jan, Bipolar 1 disorder, depressed, partial remission F31.75 [place] [address] [place] [id number] [place] [address] 49691- 4028 12 Dec, 2015 Bipolar 1 disorder, mixed, full remission F31.78 and 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.899 [place] [address] [place] [id number] [place] [address] 41828- 7946 11 Dec, 2015 Bipolar 1 disorder, mixed, full remission F31.78 and 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.899 [place] [id number] [place] [address] 50195- 4410 Oct, [place] [address] [place] [id number] [place] [address] 72075- 7812 Oct, Type 2 diabetes mellitus without complication, without long- term current use of insulin E11.9 ; Bipolar disorder, current episode manic without psychotic features, moderate F31.12 ; Essential hypertension I10 ; Venous insufficiency I87.2 and Open wound, lower leg, left, initial encounter S81.802A [place] [address] [place] [address] 48884- 7230 Oct, [place] [address] [place] [id number] [place] [address] 70010- 6175 Oct, Bipolar affective disorder, remission status unspecified F31.9 [place] [address] [place] [id number] [place] [address] 11598- 9112 Oct, [facility] [address] [place] [id number] [place] [address] 96139- 4891 Sep, [place] [address] [place] [id number] [place] [address] 76674- 3314 Sep, [place] [address] [place] [id number] [place] [address] 97792- 2306 Sep, Type 2 diabetes mellitus without complication, without long- term current use of insulin E11.9 ; Essential hypertension I10 and Venous insufficiency I87.2 [facility] [place] [address] [place] [id number] [place] [address] 78657 -7192 Sep, Cellulitis of lower extremity, unspecified laterality L03.119 and Peripheral vascular disease of lower extremity I73.9 [place] [address] [place] [id number] [place] [address] 27298- 8594 Aug, [place] [address] [place] [id number] [place] [address] 36676- 5667 Aug, Bipolar affective disorder, remission status unspecified F31.9 [facility] [address] [id number] [place] [address] 68952 -7373 July, Cellulitis, unspecified cellulitis site L03.90 [place] [address] [place] [id number] [place] [address] 34506- 1959 Jun, Bipolar disorder, current episode manic without psychotic features, moderate F31.12 and Other stimulant dependence, 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 [place] [address] [place] [id number] [place] [address] 81138- 2188 Jun, Essential hypertension, hypertension with unspecified goal I10 and Knee pain M25.569 [place] [address] [place] [id number] [place] [address] 66765- 7355 May, [facility] [address], [place] [address]- 1635 May, Bipolar disorder, current episode manic without psychotic features, moderate F31.12 and Essential hypertension, hypertension with unspecified goal I10 [facility] [address] [place] [id number] [place] [address] 95197- 6557 May, Bipolar disorder, current episode manic without psychotic features, moderate F31.12 and Other stimulant dependence, 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 [facility] [address] [id number] [place] [address] 25423- 3738 Dec, [facility] [address] [place] [id number] [place] [address] 28806- 5434 Dec, Bipolar 1 disorder, mixed, full remission F31.78 [facility] [address] [id number] [place] [address] 46197- 3457 Jun, [facility] [address] [place] [id number] [place] [address] 69635- 9583 Jun, [facility] [address] [place] [id number] [place] [address] 68784- 4312 May, [facility] [address] [place] [id number] [place] [address] 15613- 1540 May, [facility] [address] [place] [id number] [place] [address] 36874- 9889 May, [facility] [address] [place] [id number] [place] [address] 80580- 4519 May, [facility] [id number] [place] [address] 37932- 5356 May, [facility] [address] [id number] [place] [address] 99753- 3718 May, [facility] [address], [place] [address]- 0645 Mar, [facility] [address] [id number] [place] [address] 80345- 8839 Mar, [facility] [place] [facility] [address] [id number] [place] [address]- 3752 Feb, [facility] [place] [facility] [address] [id number] [place] [address]- 2445 Jan, [facility] [place] [facility] [address] [id number] [place] [address]- 1525 Jan, [facility] [place] [facility] [address] [id number] [place] [address]- 9052 Jan, [facility] [place] [facility] [address] [id number] [place] [address]- 1908 Jan, [facility] [place] [facility] [address] [id number] [place] [address]- 0029 Nov, [facility] [place] [facility] [address] [id number] [place] [address]- 2502 Nov, [facility] [place] [facility] [address] [id number] [place] [address]- 2702 Oct, [facility] [place] [facility] [address] [id number] [place] [address]- 7293 Oct, [facility] [place] [facility] [address] [id number] [place] [address]- 5715 Sep, [facility] [place] [facility] [address] [id number] [place] [address]- 3667 Sep, [facility] [place] [facility] [address] [id number] [place] [address]- 7041 Sep, [facility] [place] [facility] [address] [id number] [place] [address]- 8344 Sep, [facility] [place] [facility] [address] [id number] [place] [address]- 1735 July, [facility] [place] [facility] [address] [id number] [place] [address]- 3214 July, [facility] [place] [facility] [address] [id number] [place] [address]- 1003 July, [facility] [place] [facility] [address] [id number] [place] [address]- 9799 July, [facility] [place] [facility] [address] [id number] [place] [address]- 4123 July, [facility] [place] [facility] [address] [id number] [place] [address]- 9006 July, [facility] [place] [facility] [address] [id number] [place] [address]- 8524 July, [facility] [place] [facility] [address] [id number] [place] [address]- 0744 July, [facility] [place] [facility] [address] [id number] [place] [address]- 5298 Jun, [facility] [place] [facility] [address] [id number] [place] [address]- 8984 Jun, [facility] [place] [facility] [address] [id number] [place] [address]- 2534 Jun, [facility] [place] [facility] [address] [id number] [place] [address]- 6338 Jun, [facility] [place] [facility] [address] [id number] [place] [address]- 6064 May, [facility] [place] [facility] [address] [id number] [place] [address]- 8409 May, [facility] [place] [facility] [address] [id number] [place] [address]- 6418 May, [facility] [place] [facility] [address] [id number] [place] [address]- 7634 May, [facility] [place] [facility] [address] [id number] [place] [address]- 9790 May, [facility] [place] [facility] [address] [id number] [place] [address]- 2953 May, [facility] [place] [facility] [address] [id number] [place] [address]- 8232 May, [facility] [place] [facility] [address] [id number] [place] [address]- 8616 May, [facility] [place] [facility] [address] [id number] [place] [address]- 9496 May, [facility] [place] [facility] [address] [id number] [place] [address]- 5939 May, [facility] [place] [facility] [address] [id number] [place] [address]- 8441 May, [facility] [place] [facility] [address] [id number] [place] [address]- 4338 Mar, [facility] [place] [facility] [address] [id number] [place] [address]- 0454 Mar, [facility] [place] [facility] [address] [id number] [place] [address]- 3823 Mar, [facility] [place] [facility] [address] [id number] [place] [address]- 4821 Mar, [facility] [place] [facility] [address] [facility] [id number] [place] [address]- 4075 Feb, [facility] [place] [facility] [address] [id number] [place] [address]- 7228 Feb, [facility] [place] [facility] [address] [id number] [place] [address]- 9311 Feb, [facility] [place] [facility] [address] [id number] [place] [address]- 3082 Feb, [facility] [place] [facility] [address] [id number] [place] [address]- 0884 Jan, [facility] [place] [facility] [address] [id number] [place] [address]- 1554 Jan, [facility] [place] [facility] [id number], [place] [address]- 5306 Jan, [facility] [id number], [place] [address]- 4887 Jan, [facility] [address] [facility] [id number] [address]- 8263 Mar, [facility] [address], [place] [address]- 1255 Mar, [facility] [address] [facility] [id number], [place] [address]- 8232 Feb, [facility] [address], [place] [address]- 8173 Jan, [facility] [address], [place] [address]- 2116 Dec, [facility] [id number] [address] Nov, [facility] [id number] [address] Oct, [facility] [id number] [address] Sep, [facility] [address] [id number], [place] [address] Feb, IMMUNIZATIONS No Known Immunizations SOCIAL HISTORY Never Assessed REASON FOR VISIT PRSUP-FU PLAN OF CARE VITAL SIGNS MEDICATIONS Unknown [...] early 1999 he had inpatient stay at [facility] when he was experiencing SI
--- OUTSIDE RECORDS SUMMARY | 2017-08-06 10:33 | XMS REPORT ---
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 Active 643337180 Problem Type 2 diabetes mellitus without complication, without long-term current use of insulin E11.9 Active 070498495 Problem Amphetamine use disorder, 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 42405777 Problem PVD (peripheral vascular disease) I73.9 Active 202666563 Problem Mixed hyperlipidemia E78.2 Active 892306602 Problem Bipolar disorder, in partial remission, most recent episode depressed F31.75 Active 42752337 Problem Bipolar I disorder with depression F31.9 Active 19165828 Problem Methamphetamine use disorder, 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 636413050 ALLERGIES No Information ENCOUNTERS Encounter Location Date Diagnosis [place] [id number] [place] [address] 79023- 7937 Jun, [facility] [address] [place] [id number] [place] [address] 13279- 3990 Jun, [facility] [id number] [place] [address] 61773- 5605 Jun, [facility] [address] [place] [id number] [place] [address] 54120- 6086 May, Bipolar I disorder with depression F31.9 and Amphetamine use disorder, 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 [facility] [id number] [place] [address] 77576- 0339 May, Bipolar I disorder with depression F31.9 and Amphetamine use disorder, 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 [facility] [id number] [place] [address] 29612- 0503 May, [facility] [address] [id number] [place] [address] 18234- 4142 14 May, 2017 BMI 40.0-44.9, adult Z68.41 ; Methamphetamine use disorder, 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 and Bipolar I disorder with depression F31.9 [facility] [id number] [place] [address] 72088- 4968 Mar, [facility] [address] [place] [id number] [place] [address] 70626- 3861 Mar, Methamphetamine use disorder, 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 and Bipolar I disorder with depression F31.9 [place] [address] [place] [address] [id number] [place] [address] 79467- 8872 Mar, Methamphetamine use disorder, 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 ; Bipolar I disorder with depression F31.9 and BMI 40.0-44.9, adult Z68.41 [facility] [address] [place] [id number] [place] [address] 69634- 3928 Mar, [facility] [address] [address] Feb, Cough R05 ; Other viral agents as the cause of diseases classified elsewhere B97.89 ; Acute upper respiratory infection, unspecified J06.9 and BMI 40.0-44.9, adult Z68.41 [facility] [address] [address] 8[address] Feb, [place] [address] [place] [id number] [place] [address] 86803- 9182 Feb, Methamphetamine use disorder, 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 and Bipolar I disorder with depression F31.9 [facility] [id number] [place] [address] 06580- 7124 Feb, Methamphetamine use disorder, 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 ; Bipolar I disorder with depression F31.9 and BMI 40.0-44.9, adult Z68.41 [place] [address] 42702- 6859 Feb, [place] [address] 60911- 2162 Jan, Type 2 diabetes mellitus without complication, without long- term current use of insulin E11.9 [facility] [address] 57874 -2391 Jan, BMI 40.0-44.9, adult Z68.41 and Open wound of left lower leg, subsequent encounter S81.802D [facility] [place] [address] 8[address]58 -2128 16 Jan, 2017 Abrasion T14.8XXA ; Encounter for immunization Z23 and PVD (peripheral vascular disease) I73.9 [place] [address] 25152- 3456 15 Jan, 2017 [place] [address] 42784- 8988 Jan, [place] [address] 16447- 7790 Jan, Bipolar I disorder with depression F31.9 and Other stimulant dependence, 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 [place] [address] [place] [id number] [place] [address] 47985- 4385 2016 Type 2 diabetes mellitus without complication, without long- term current use of insulin E11.9 and Essential hypertension I10 [place] [address] 51628- 4099 28 Nov, 2016 Methamphetamine use disorder, 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 and Bipolar I disorder with depression F31.9 [place] [address] 20485- 7604 26 Nov, 2016 Bipolar I disorder with depression F31.9 and Other stimulant dependence, 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 [facility] [id number] [place] [address] 71238 -6121 14 Nov, 2016 Bilateral impacted cerumen H61.23 [facility] [id number] [place] [address] 66402- 0666 12 Nov, 2016 Bipolar I disorder with depression F31.9 and Other stimulant dependence, 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 [facility] [address] [id number] [place] [address] 20601- 5371 11 Nov, 2016 [facility] [address] [address] [id number] [place] [address] 65941- 8139 Nov, [facility] [address] [address] [id number] [place] [address] 07199- 1167 Oct, Bipolar I disorder with depression F31.9 and Adderall use disorder, moderate, dependence F15.20 [facility] [address] [place] [id number] [place] [address] 01194- 0758 Oct, Bipolar I disorder with depression F31.9 and Methamphetamine use disorder, 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 [facility] [address] [address] [id number] [place] [address] 19926- 2655 Oct, [facility] [address] [id number] [place] [address] 19275- 5411 Sep, [facility] [id number] [place] [address] 27373- 7491 Sep, Bipolar I disorder with depression F31.9 [facility] [address] [id number] [place] [address] 17664- 4353 Sep, Bipolar I disorder with depression F31.9 and Methamphetamine use disorder, 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 [facility] [address] [place] [id number] [place] [address] 86367- 8536 Sep, Bipolar I disorder with depression F31.9 and Other stimulant dependence, 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 [facility] [id number] [place] [address] 49089- 0563 Sep, [facility] [id number] [place] [address] 64322- 5454 Sep, [facility] [address] [place] [address] [id number] [place] [address] 93994- 5698 Sep, Tick bite, initial encounter W57.XXXA [facility] [address] [address] [id number] [place] [address] 67346- 0623 Aug, [facility] [address] [address] [id number] [place] [address] 81871- 0540 Aug, [facility] [address] [place] [id number] [place] [address] 42052- 5771 Aug, Bipolar I disorder with depression F31.9 and Other stimulant dependence, 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 [facility] [address] [place] [address] Aug, [facility] [address] [address] [id number] [place] [address] 76918- 2769 Aug, [facility] [address] [place] [address] Aug, [facility] [address] [place] [id number] [place] [address] 45868- 1407 Aug, [facility] [address] [address] [id number] [place] [address] 21432- 1225 Aug, Elevated glucose R73.09 ; Type 2 diabetes mellitus without complication, without long-term current use of insulin E11.9 ; Periumbilical abdominal pain R10.33 and Mixed hyperlipidemia E78.2 [facility] [id number] [place] [address] 94189 -6407 Aug, Periumbilical abdominal pain R10.33 and Tick bite, initial encounter W57.XXXA [facility] [address] [place] [id number] [place] [address] 57627- 8734 Aug, Bipolar I disorder with depression F31.9 [facility] [address] [place] [id number] [place] [address] 55017- 7866 July, Bipolar I disorder with depression F31.9 and Other stimulant dependence, 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 [facility] [address] [address]- 6790 July, [facility] [address] [place] [address] July, [facility] [id number] [place] [address] 81402- 9609 July, [facility] [id number] [place] [address] 45385- 9907 Jun, Bipolar I disorder with depression F31.9 [facility] [address] [place] [address] 32728- 3816 Jun, Elevated glucose R73.09 and Other alf (current) drug therapy Z79.899 [facility] [id number] [place] [address] 65301- 9315 Jun, Bipolar I disorder with depression F31.9 and Other alf (current) drug therapy Z79.899 [facility] [address], [place] [address]- 8129 Jun, [facility] [id number] [place] [address] 81547- 7878 Jun, Bipolar disorder, in partial remission, most recent episode depressed F31.75 and Other stimulant dependence, 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 [facility] [address] [id number] [place] [address] Jun [facility] [address] [place] [id number] [address] May, Other viral agents as the cause of diseases classified elsewhere B97.89 and Acute upper respiratory infection, unspecified J06.9 [facility] [address] [place] [id number], [place] [address]- 7905 May, Bipolar disorder, in partial remission, most recent episode depressed F31.75 and Other stimulant dependence, 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 [place] [address] [address]- 1542 02 May, 2016 Bipolar 1 disorder, mixed, full remission F31.78 and Methamphetamine abuse in remission F15.10 [place] [address], [place] [address]- 9786 Feb, Bipolar affective disorder, remission status unspecified F31.[address] [id number] [place] [address] Feb [place] [address] [place] [id number] [place] [address] 07771- 5720 Feb, Dental examination Z01.20 [place] [address] [place] [id number] [place] [address] 79716- 2600 Jan, Bipolar 1 disorder, depressed, partial remission F31.75 [place] [address] [place] [id number] [place] [address] 12787- 5889 12 Dec, 2015 Bipolar 1 disorder, mixed, full remission F31.78 and Other alf (current) drug therapy Z79.899 [place] [address] [place] [id number] [place] [address] 80243- 6126 11 Dec, 2015 Bipolar 1 disorder, mixed, full remission F31.78 and Other watermaster (current) drug therapy Z79.899 [place] [id number] [place] [address] 97203- 1827 Oct, [place] [address] [place] [id number] [place] [address] 23991- 4099 Oct, Type 2 diabetes mellitus without complication, without long- term current use of insulin E11.9 ; Bipolar disorder, current episode manic without psychotic features, moderate F31.12 ; Essential hypertension I10 ; Venous insufficiency I87.2 and Open wound, lower leg, left, initial encounter S81.802A [place] [address] [place] [address] 72054- 5813 Oct, [place] [address] [place] [id number] [place] [address] 72838- 0501 Oct, Bipolar affective disorder, remission status unspecified F31.9 [place] [address] [place] [id number] [place] [address] 51272- 4562 Oct, [facility] [address] [place] [id number] [place] [address] 88147- 5154 Sep, [place] [address] [place] [id number] [place] [address] 28796- 3520 Sep, [place] [address] [place] [id number] [place] [address] 82945- 6193 Sep, Type 2 diabetes mellitus without complication, without long- term current use of insulin E11.9 ; Essential hypertension I10 and Venous insufficiency I87.2 [facility] [place] [address] [place] [id number] [place] [address] 84272 -6909 Sep, Cellulitis of lower extremity, unspecified laterality L03.119 and Peripheral vascular disease of lower extremity I73.9 [place] [address] [place] [id number] [place] [address] 57433- 1151 Aug, [place] [address] [place] [id number] [place] [address] 51289- 0558 Aug, Bipolar affective disorder, remission status unspecified F31.9 [facility] [address] [place] [id number] [place] [address] 94141 -9445 July, Cellulitis, unspecified cellulitis site L03.90 [place] [address] [place] [id number] [place] [address] 86240- 3712 Jun, Bipolar disorder, current episode manic without psychotic features, moderate F31.12 and Other stimulant dependence, 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 [place] [address] [place] [id number] [place] [address] 22742- 0210 Jun, Essential hypertension, hypertension with unspecified goal I10 and Knee pain M25.569 [place] [address] [place] [id number] [place] [address] 84846- 7176 May, [facility] [address] [address]- 5047 May, Bipolar disorder, current episode manic without psychotic features, moderate F31.12 and Essential hypertension, hypertension with unspecified goal I10 [facility] [address] [place] [id number] [place] [address] 15677- 6172 May, Bipolar disorder, current episode manic without psychotic features, moderate F31.12 and Other stimulant dependence, 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 [facility] [address] [place] [id number] [place] [address] 89880- 4589 Dec, [facility] [address] [place] [id number] [place] [address] 88282- 6668 Dec, Bipolar 1 disorder, mixed, full remission F31.78 [facility] [address] [place] [id number] [place] [address] 63667- 6706 Jun, [facility] [address] [id number] [place] [address] 29209- 8966 Jun, [facility] [address] [place] [id number] [place] [address] 61317- 2840 May, [facility] [address] [id number] [place] [address] 38355- 3681 May, [facility] [address] [id number] [place] [address] 78553- 0152 May, [facility] [address] [id number] [place] [address] 77679- 2592 May, [facility] [address] [place] [address] 82180- 4499 May, [facility] [address] [place] [id number] [place] [address] 90390- 0280 May, [facility] [address], [place] [address]- 3049 Mar, [facility] [address] [place] [id number] [place] [address] 82523- 2464 Mar, [facility] [place] [facility] [address] [id number] [place] [address]- 7387 Feb, [facility] [place] [facility] [address] [id number] [place] [address]- 1661 Jan, [facility] [place] [facility] [address] [id number] [place] [address]- 3292 Jan, [facility] [place] [facility] [address] [id number] [place] [address]- 7877 Jan, [facility] [place] [facility] [address] [id number] [place] [address]- 2339 Jan, [facility] [place] [facility] [address] [id number] [place] [address]- 8058 Nov, [facility] [place] [facility] [address] [id number] [place] [address]- 2311 Nov, [facility] [place] [facility] [address] [id number] [place] [address]- 8446 Oct, [facility] [place] [facility] [address] [id number] [place] [address]- 0186 Oct, [facility] [place] [facility] [address] [id number] [place] [address]- 7088 Sep, [facility] [place] [facility] [address] [id number] [place] [address]- 5969 Sep, [facility] [place] [facility] [address] [id number] [place] [address]- 9945 Sep, [facility] [place] [facility] [address] [id number] [place] [address]- 7127 Sep, [facility] [place] [facility] [address] [id number] [place] [address]- 8999 July, [facility] [place] [facility] [address] [id number] [place] [address]- 5598 July, [facility] [place] [facility] [address] [id number] [place] [address]- 1678 July, [facility] [place] [facility] [address] [id number] [place] [address]- 1158 July, [facility] [place] [facility] [address] [id number] [place] [address]- 5651 July, [facility] [place] [facility] [address] [id number] [place] [address]- 6590 July, [facility] [place] [facility] [address] [id number] [place] [address]- 9911 July, [facility] [place] [facility] [address] [id number] [place] [address]- 4167 July, [facility] [place] [facility] [address] [id number] [place] [address]- 8996 Jun, [facility] [place] [facility] [address] [id number] [place] [address]- 3804 Jun, [facility] [place] [facility] [address] [id number] [place] [address]- 5411 Jun, [facility] [place] [facility] [address] [id number] [place] [address]- 8697 Jun, [facility] [place] [facility] [address] [id number] [place] [address]- 6831 May, [facility] [place] [facility] [address] [id number] [place] [address]- 0098 May, [facility] [place] [facility] [address] [id number] [place] [address]- 6967 May, [facility] [place] [facility] [address] [id number] [place] [address]- 4981 May, [facility] [place] [facility] [address] [id number] [place] [address]- 1955 May, [facility] [place] [facility] [address] [id number] [place] [address]- 6604 May, [facility] [place] [facility] [address] [id number] [place] [address]- 2025 May, [facility] [place] [facility] [address] [id number] [place] [address]- 3746 May, [facility] [place] [facility] [address] [id number] [place] [address]- 6636 May, [facility] [place] [facility] [address] [id number] [place] [address]- 4623 May, [facility] [place] [facility] [address] [id number] [place] [address]- 0297 May, [facility] [place] [facility] [address] [id number] [place] [address]- 0374 Mar, [facility] [place] [facility] [address] [id number] [place] [address]- 5592 Mar, [facility] [place] [facility] [address] [id number] [place] [address]- 4313 Mar, [facility] [place] [facility] [address] [id number] [place] [address]- 8520 Mar, [facility] [place] [facility] [address] [facility] [id number] [place] [address]- 2884 Feb, [facility] [place] [facility] [address] [id number] [place] [address]- 1857 Feb, [facility] [place] [facility] [address] [id number] [place] [address]- 0383 Feb, [facility] [place] [facility] [address] [id number] [place] [address]- 9718 Feb, [facility] [place] [facility] [address] [id number] [place] [address]- 2342 Jan, [facility] [place] [facility] [address] [id number] [place] [address]- 5617 Jan, [facility] [place] [facility] [id number] [address]- 0701 Jan, [facility] [id number], [place] [address]- 2531 Jan, [facility] [address] [facility] [id number] [address]- 0488 Mar, [facility] [address] [address]- 4702 Mar, [facility] [address] [facility] [id number] [address]- 6981 Feb, [facility] [address] [address]- 7531 Jan, [facility] [id number], [place] [address]- 9222 Dec, [facility] [address], [place] [address]- 3661 Nov, [facility] [address] [address]- 3959 Oct, [facility] [id number], [place] [address]- 4798 Sep, [facility] [id number] [address]- 2826 Feb, IMMUNIZATIONS No Known Immunizations SOCIAL HISTORY Never Assessed [facility] VITAL SIGNS MEDICATIONS Unknown [...] early 1999 he had inpatient stay at [facility] when he was experiencing SI
--- OUTSIDE RECORDS SUMMARY | 2017-08-06 10:33 | XMS REPORT ---
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 Active 683708507 Problem Type 2 diabetes mellitus without complication, without long-term current use of insulin E11.9 Active 160666192 Problem Amphetamine use disorder, 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 50930091 Problem PVD (peripheral vascular disease) I73.9 Active 979993312 Problem Mixed hyperlipidemia E78.2 Active 935058389 Problem Bipolar disorder, in partial remission, most recent episode depressed F31.75 Active 17090947 Problem Bipolar I disorder with depression F31.9 Active 84642134 Problem Methamphetamine use disorder, 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 377943397 ALLERGIES No Information ENCOUNTERS Encounter Location Date Diagnosis [facility] [id number] [place] [address] 75969- 3072 July, [facility] [id number] [place] [address] 98641- 6652 July, Bipolar I disorder with depression F31.9 and Amphetamine use disorder, 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 [facility] [address] 02791 -7748 July, [facility] [id number] [place] [address] 12167 -9118 Jun, Seasonal allergic rhinitis, unspecified trigger J30.2 and BMI 40.0-44.9, adult Z68.41 [place] [id number] [place] [address] 21710- 3725 May, Bipolar I disorder with depression F31.9 and Amphetamine use disorder, 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 [place] [id number] [place] [address] 15976- 9777 May, Bipolar I disorder with depression F31.9 and Amphetamine use disorder, 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 [facility] [id number] [place] [address] 71234- 4292 May, [facility] [facility] [id number] [place] [address] 62315- 7308 14 May, 2017 BMI 40.0-44.9, adult Z68.41 ; Methamphetamine use disorder, 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 and Bipolar I disorder with depression F31.9 [place] [id number] [place] [address] 00340- 8772 Mar, [place] [id number] [place] [address] 54992- 5019 Mar, Methamphetamine use disorder, 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 and Bipolar I disorder with depression F31.9 [place] [id number] [place] [address] 88802- 3169 Mar, Methamphetamine use disorder, 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 ; Bipolar I disorder with depression F31.9 and BMI 40.0-44.9, adult Z68.41 [place] [id number] [place] [address] 22663- 7602 Mar, [facility] IN [facility] [id number] [place] [address] 93458 -1792 Feb, Cough R05 ; Other viral agents as the cause of diseases classified elsewhere B97.89 ; Acute upper respiratory infection, unspecified J06.9 and BMI 40.0-44.9, adult Z68.41 [place] [id number] [place] [address] 33642- 6428 Feb, [place] [address] 73083- 6371 14 Feb, 2017 Methamphetamine use disorder, 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 and Bipolar I disorder with depression F31.9 [place] [address] 160926- 7859 14 Feb, 2017 Methamphetamine use disorder, 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 ; Bipolar I disorder with depression F31.9 and BMI 40.0-44.9, adult Z68.41 [place] [address] 48313- 5269 12 Feb, [address] 538427- 8168 Jan, Type 2 diabetes mellitus without complication, without long- term current use of insulin E11.9 [facility] WALK IN [address] [address] -1604 Jan, BMI 40.0-44.9, adult Z68.41 and Open wound of left lower leg, subsequent encounter S81.802D [facility] W[facility] IN [address] 27228 -8164 16 Jan, 2017 Abrasion T14.8XXA ; Encounter for immunization Z23 and PVD (peripheral vascular disease) I73.[address] 22503- 4271 15 Jan, [address] 31463- 8344 Jan, [address] 51796- 7573 Jan, Bipolar I disorder with depression F31.9 and Other stimulant dependence, 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 [place] [address] 55603- 0699 2016 Type 2 diabetes mellitus without complication, without long- term current use of insulin E11.9 and Essential hypertension I10 [place] [address] [place] [address]- 6017 Nov, Methamphetamine use disorder, 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 and Bipolar I disorder with depression F31.9 [facility] [id number] [place] [address] 38170- 0812 Nov, Bipolar I disorder with depression F31.9 and Other stimulant dependence, 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 [facility] [id number] [place] [address] 15663 -2136 14 Nov, 2016 Bilateral impacted cerumen H61.23 [facility] [id number] [place] [address] 07731- 9424 12 Nov, 2016 Bipolar I disorder with depression F31.9 and Other stimulant dependence, 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 [facility] [id number] [place] [address] 76245- 3206 Nov, [facility] [id number] [place] [address] 42362- 7749 Nov, [facility] [id number] [place] [address] 63090- 4605 Oct, Bipolar I disorder with depression F31.9 and Adderall use disorder, moderate, dependence F15.20 [facility] [id number] [place] [address] 18848- 2662 Oct, Bipolar I disorder with depression F31.9 and Methamphetamine use disorder, 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 [facility] [id number] [place] [address] 61490- 1214 Oct, [facility] [id number] [place] [address] 60820- 5350 Sep, [facility] [id number] [place] [address] 13724- 8668 Sep, Bipolar I disorder with depression F31.9 [facility] [id number] [place] [address] 66462- 8744 Sep, Bipolar I disorder with depression F31.9 and Methamphetamine use disorder, 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 [facility] [id number] [place] [address] 26033- 0877 Sep, Bipolar I disorder with depression F31.9 and Other stimulant dependence, 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 [facility] [id number] [place] [address] 58757- 3130 Sep, [facility] [address] 28805- 8433 Sep, [facility] [id number] [place] [address] 13675- 5008 Sep, Tick bite, initial encounter W57.XXXA [facility] [address] 49197- 1588 Aug, [facility] [address] 64130- 4676 Aug, [facility] [address] 55820- 9199 Aug, Bipolar I disorder with depression F31.9 and Other stimulant dependence, 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 [facility] [address] [place] [address] Aug, [facility] [id number] [place] [address] 17905- 4491 Aug, [facility] [address] [place] [address] Aug, [facility] [id number] [place] [address] 60249- 5751 Aug, [facility] [id number] [place] [address] 84121- 6537 Aug, Elevated glucose R73.09 ; Type 2 diabetes mellitus without complication, without long-term current use of insulin E11.9 ; Periumbilical abdominal pain R10.33 and Mixed hyperlipidemia E78.2 [facility] [id number] [place] [address] 15870 -0052 Aug, Periumbilical abdominal pain R10.33 and Tick bite, initial encounter W57.XXXA [facility] [address] [address]- 0400 Aug, Bipolar I disorder with depression F31.9 [facility] [address] [address]- 8510 July, Bipolar I disorder with depression F31.9 and Other stimulant dependence, 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 [facility] [id number] [place] [address] 63443- 7445 July, [facility] [address] [place] [address] July, [facility] [id number] [place] [address] 08814- 0807 July, [facility] [id number] [place] [address] 30028- 6335 Jun, Bipolar I disorder with depression F31.9 [facility] [address] [place] [address] 00268- 0614 Jun, Elevated glucose R73.09 and Other rodent exterminator (current) drug therapy Z79.899 [facility] [address] [place] [address] 99447- 7174 Jun, Bipolar I disorder with depression F31.9 and Other rodent exterminator (current) drug therapy Z79.899 [facility] [address] [address]- 1792 Jun, [facility] [address] [address]- 7601 Jun, Bipolar disorder, in partial remission, most recent episode depressed F31.75 and Other stimulant dependence, 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 [facility] [address] [id number] [place] [address] Jun [facility] [address] [address]329 May, Other viral agents as the cause of diseases classified elsewhere B97.89 and Acute upper respiratory infection, unspecified J06.9 [place] [address] [address]- 5998 15 May, 2016 Bipolar disorder, in partial remission, most recent episode depressed F31.75 and Other stimulant dependence, 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 [place] [address] [address]- 5956 02 May, 2016 Bipolar 1 disorder, mixed, full remission F31.78 and Methamphetamine abuse in remission F15.10 [place] [address] [address]- 0656 Feb, Bipolar affective disorder, remission status unspecified F31.[address] [id number] [place] [address] 14 Feb [place] [address] [address]- 6672 14 Feb, 2016 Dental examination Z01.20 [place] [address] [address]- 8048 16 Jan, 2016 Bipolar 1 disorder, depressed, partial remission F31.75 [place] [address] [address]- 8908 12 Dec, 2015 Bipolar 1 disorder, mixed, full remission F31.78 and Other fpc (current) drug therapy Z79.899 [place] [address] [address]- 5196 Dec, Bipolar 1 disorder, mixed, full remission F31.78 and Other rodent exterminator (current) drug therapy Z79.899 [place] [address] [address]- 0246 Oct, [place] [address] [place] [address] 30972- 1708 Oct, Type 2 diabetes mellitus without complication, without long- term current use of insulin E11.9 ; Bipolar disorder, current episode manic without psychotic features, moderate F31.12 ; Essential hypertension I10 ; Venous insufficiency I87.2 and Open wound, lower leg, left, initial encounter S81.802A [place] [id number] [place] [address] 08973- 0405 Oct, [facility] [id number] [place] [address] 99995- 9222 Oct, Bipolar affective disorder, remission status unspecified F31.9 [place] [id number] [place] [address] 51446- 2207 Oct, [place] [id number] [place] [address] 27344- 5206 Sep, [place] [id number] [place] [address] 05792- 8811 Sep, [place] [id number] [place] [address] 01917- 3594 Sep, Type 2 diabetes mellitus without complication, without long- term current use of insulin E11.9 ; Essential hypertension I10 and Venous insufficiency I87.2 [facility] [id number] [place] [address] 80297 -6638 Sep, Cellulitis of lower extremity, unspecified laterality L03.119 and Peripheral vascular disease of lower extremity I73.9 [facility] [id number] [place] [address] 52794- 9518 Aug, [place] [id number] [place] [address] 86893- 4844 Aug, Bipolar affective disorder, remission status unspecified F31.9 [facility] [id number] [place] [address] 42952 -5499 July, Cellulitis, unspecified cellulitis site L03.90 [facility] [id number] [place] [address] 01554- 9885 Jun, Bipolar disorder, current episode manic without psychotic features, moderate F31.12 and Other stimulant dependence, 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 [facility] [address] [address]- 2601 Jun, Essential hypertension, hypertension with unspecified goal I10 and Knee pain M25.569 [facility] [id number] [place] [address] 25781- 6400 May, [facility] [id number] [place] [address] 75561- 1882 May, Bipolar disorder, current episode manic without psychotic features, moderate F31.12 and Essential hypertension, hypertension with unspecified goal I10 [facility] [id number] [place] [address] 28082- 0680 May, Bipolar disorder, current episode manic without psychotic features, moderate F31.12 and Other stimulant dependence, 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 [facility] [id number] [place] [address] 83076- 1699 Dec, [facility] [id number] [place] [address] 42408- 7840 Dec, Bipolar 1 disorder, mixed, full remission F31.78 [facility] [id number] [place] [address] 70140- 8515 Jun, [facility] [id number] [place] [address] 08977- 5970 Jun, [facility] [id number] [place] [address] 17909- 0888 May, [facility] [id number] [place] [address] 25883- 4056 May, [facility] [id number] [place] [address] 10826- 5243 May, [facility] [id number] [place] [address] 41686- 4845 May, [facility] [id number] [place] [address] 42559- 6538 May, [facility] [place] [facility] [address] [id number] [place] [address]- 2972 May, [facility] [place] [facility] [address] [id number] [place] [address]- 5937 Mar, [facility] [place] [facility] [address] [id number] [place] [address]- 8315 Mar, [facility] [place] [facility] [address] [id number] [place] [address]- 0211 Feb, [facility] [place] [facility] [address] [id number] [place] [address]- 1962 Jan, [facility] [place] [facility] [address] [id number] [place] [address]- 9505 Jan, [facility] [place] [facility] [address] [id number] [place] [address]- 2534 Jan, [facility] [place] [facility] [address] [id number] [place] [address]- 1982 Jan, [facility] [place] [facility] [address] [id number] [place] [address]- 1903 Nov, [facility] [place] [facility] [address] [id number] [place] [address]- 7118 Nov, [facility] [place] [facility] [address] [id number] [place] [address]- 0631 Oct, [facility] [place] [facility] [address] [id number] [place] [address]- 7492 Oct, [facility] [place] [facility] [address] [id number] [place] [address]- 6253 Sep, [facility] [place] [facility] [address] [id number] [place] [address]- 6161 Sep, [facility] [place] [facility] [address] [id number] [place] [address]- 2384 Sep, [facility] [place] [facility] [address] [id number] [place] [address]- 8697 Sep, [facility] [place] [facility] [address] [id number] [place] [address]- 5769 July, [facility] [place] [facility] [address] [id number] [place] 5494 July, [facility] [place] [facility] [address] [id number] [place] [address]- 5204 July, [facility] [place] [facility] [address] [id number] [place] [address]- 6525 July, [facility] [place] [facility] [address] [id number] [place] [address]- 5609 July, [facility] [place] [facility] [address] [id number] [place] [address]- 3543 July, [facility] [place] [facility] [address] [id number] [place] [address]- 8979 July, [facility] [place] [facility] [address] [id number] [place] [address]- 0376 July, [facility] [place] [facility] [address] [id number] [place] [address]- 5077 Jun, [facility] [place] [facility] [address] [id number] [place] [address]- 6860 Jun, [facility] [place] [facility] [address] [id number] [place] [address]- 8346 Jun, [facility] [place] [facility] [address] [id number] [place] [address]- 5978 Jun, [facility] [place] [facility] [address] [id number] [place] [address]- 4783 May, [facility] [place] [facility] [address] [id number] [place] [address]- 9933 May, [facility] [place] [facility] [address] [id number] [place] [address]- 2763 May, [facility] [place] [facility] [address] [id number] [place] [address]- 1717 May, [facility] [place] [facility] [address] [id number] [place] [address]- 5566 May, [facility] [place] [facility] [address] [id number] [place] [address]- 5276 May, [facility] [place] [facility] [address] [id number] [place] [address]- 6846 May, [facility] [place] [facility] [address] [id number] [place] [address]- 7856 May, [facility] [place] [facility] [address] [id number] [place] [address]- 0896 May, [facility] [place] [facility] [address] [id number] [place] [address]- 8239 May, [facility] [place] [facility] [address] [id number] [place] [address]- 1636 May, [facility] [place] [facility] [address] [id number] [place] [address]- 1598 Mar, [facility] [place] [facility] [address] [id number] [place] [address]- 9268 Mar, [facility] [place] [facility] [address] [id number] [place] [address]- 9104 Mar, [facility] [place] [facility] [address] [id number] [place] [address]- 7561 Mar, [facility] [place] [facility] [address] [id number] [place] [address]- 8407 Feb, [facility] [place] [facility] [address] [id number] [place] [address]- 2546 Feb, [facility] [place] [facility] [address] [id number] [place] [address]- 1380 Feb, [facility] [place] [facility] [address] [id number] [address]- 2356 Feb, [facility] [id number] [address]- 5902 Jan, [facility] [address], [place] [address]- 4906 Jan, [facility] [address], [place] [address]- 3283 Jan, [facility] [address] [address]- 4474 Jan, [facility] [address], [place] [address]- 5503 Mar, [facility] [id number] [place] [address] 97570- 9204 Mar, [facility] [id number] [place] [address] 77843- 1867 Feb, [facility] [address], [place] [address]- 5362 Jan, [facility] [address] [address]- 0714 Dec, [facility] [address], [place] [address]- 0223 Nov, [facility] [id number], [place] [address]- 9486 Oct, [facility] [address], [place] [address]- 4053 Sep, [facility] [id number] [address]- 8250 Feb, IMMUNIZATIONS No Known Immunizations SOCIAL HISTORY Never Assessed REASON FOR VISIT f/u PLAN OF CARE Activity Details Follow Up 3 Months Reason: VITAL SIGNS MEDICATIONS Medication Instructions Dosage Frequency Start Date End Date Duration Status Glucocard Expression Test - DX E11.9 2 times a day- 3 times weekly. test blood sugar Aug, Active Latuda 80 MG Orally daily at suppertime 1 tablet with food 30 days Active Lipitor 40 MG Orally Once a day 1 tablet 24h Aug, 30 day(s) Active Metformin HCl 1000 MG Orally Twice a day, pc 1 tablet with meals Aug, 30 day(s) Active Glucocard Expression Monitor w/Device as directed Aug, Active RESULTS No Results PROCEDURES Procedure Date Ordered Result Body Site [facility] VISIT ESTABLISHED PATIENT Dec 26, 2016 INSTRUCTIONS MEDICATIONS ADMINISTERED No Known Medications [...]
--- OUTSIDE RECORDS SUMMARY | 2017-08-06 10:34 | XMS REPORT | Continuity of Care Document ---
Author Author [facility] Address Unknown Phone Unavailable Allergies Active Description Code Type Severity Reaction Onset Reported/Identified Relationship to Patient Clinical Status Yes No Known Drug Allergies [id number] Drug Allergy Unknown N/A 12/05/2011 Medications There is no data. Problems Date Dx Coded Attending Type Code Diagnosis Diagnosed By 10/06/2007 SOFIA SANTIAGO PHD 296.80 MO BIPOLAR NOS 10/06/2007 CHIARA RODRIGUEZ MD 296.80 MO BIPOLAR NOS 10/06/2007 SOFIA SANTIAGO PHD 296.80 MO BIPOLAR NOS 10/06/2007 SOFIA SANTIAGO PHD 296.80 MO BIPOLAR NOS 10/06/2007 CHIARA RODRIGUEZ MD 296.80 MO BIPOLAR NOS 10/06/2007 MAGO GIL JR 296.80 MO BIPOLAR NOS 10/06/2007 SOFIA SANTIAGO PHD 296.80 MO BIPOLAR NOS 10/06/2007 JASON STALEY APRN 296.80 MO BIPOLAR NOS 10/06/2007 JASON STALEY APRN 296.80 MO BIPOLAR NOS 10/06/2007 JASON STALEY APRN 296.80 MO BIPOLAR NOS 10/06/2007 SOFIA SANTIAGO PHD 296.80 MO BIPOLAR NOS 10/06/2007 CHIARA RODRIGUEZ MD 296.80 MO BIPOLAR NOS 10/06/2007 SOFIA SANTIAGO PHD 296.80 MO BIPOLAR NOS 10/06/2007 SOFIA SANTIAGO PHD 296.80 MO BIPOLAR NOS 10/06/2007 CINDY YOU APRN 296.80 MO BIPOLAR NOS 10/06/2007 SOFIA SANTIAGO PHD 296.80 MO BIPOLAR NOS 10/06/2007 SOFIA SANTIAGO PHD 296.80 MO BIPOLAR NOS 10/06/2007 SOFIA SANTIAGO PHD 296.80 MO BIPOLAR NOS 10/06/2007 CINDY YOU APRN 296.80 MO BIPOLAR NOS 10/06/2007 CINDY YOU APRN 296.80 MO BIPOLAR NOS 10/06/2007 SOFIA SANTIAGO PHD 296.80 MO BIPOLAR NOS 10/06/2007 SOFIA SANTIAGO PHD 296.80 MO BIPOLAR NOS 10/21/2007 SOFIA SANTIAGO PHD 300.00 AN ANXIETY UNSPEC 10/21/2007 SOFIA SANTIAGO PHD 311 MO DEPRESSIVE DISORDER NOS 10/21/2007 CHIARA RODRIGUEZ MD 300.00 AN ANXIETY UNSPEC 10/21/2007 CHIARA RODRGIUEZ MD 311 MO DEPRESSIVE DISORDER NOS 10/21/2007 SOFIA SANTIAGO PHD 300.00 AN ANXIETY UNSPEC 10/21/2007 SOFIA SANTIAGO PHD 311 MO DEPRESSIVE DISORDER NOS 10/21/2007 SOFIA SANTIAGO PHD 300.00 AN ANXIETY UNSPEC 10/21/2007 SOFIA SANTIAGO PHD 311 MO DEPRESSIVE DISORDER NOS 10/21/2007 CHIARA RODRIGUEZ MD 300.00 AN ANXIETY UNSPEC 10/21/2007 CHIARA RODRIGUEZ MD 311 MO DEPRESSIVE DISORDER NOS 10/21/2007 MAGO GIL JR 300.00 AN ANXIETY UNSPEC 10/21/2007 MAGO GIL JR 311 MO DEPRESSIVE DISORDER NOS 10/21/2007 SOFIA SANTIAGO PHD 300.00 AN ANXIETY UNSPEC 10/21/2007 SOFIA SANTIAGO PHD 311 MO DEPRESSIVE DISORDER NOS 10/21/2007 JASON STALEY APRN 300.00 AN ANXIETY UNSPEC 10/21/2007 JASON STALEY APRN 311 MO DEPRESSIVE DISORDER NOS 10/21/2007 JASON STALEY APRN 300.00 AN ANXIETY UNSPEC 10/21/2007 JASON STALEY APRN 311 MO DEPRESSIVE DISORDER NOS 10/21/2007 JASON STALEY APRN 300.00 AN ANXIETY UNSPEC 10/21/2007 JASON STALEY APRN 311 MO DEPRESSIVE DISORDER NOS 10/21/2007 SOFIA SANTIAGO PHD 300.00 AN ANXIETY UNSPEC 10/21/2007 SOFIA SANTIAGO PHD 311 MO DEPRESSIVE DISORDER NOS 10/21/2007 CHIARA RODRIGUEZ MD 300.00 AN ANXIETY UNSPEC 10/21/2007 CHIARA RODRIGUEZ MD 311 MO DEPRESSIVE DISORDER NOS 10/21/2007 SOFIA SANTIAGO PHD 300.00 AN ANXIETY UNSPEC 10/21/2007 SOFIA SANTIAGO PHD 311 MO DEPRESSIVE DISORDER NOS 10/21/2007 SOFIA SANTIAGO PHD 300.00 AN ANXIETY UNSPEC 10/21/2007 SOFIA SANTIAGO PHD 311 MO DEPRESSIVE DISORDER NOS 10/21/2007 AVELINO EDUCATIONAL FUNDRAISING DIRECTOR, CINDY 300.00 AN ANXIETY UNSPEC 10/21/2007 AVELINO EDUCATIONAL FUNDRAISING DIRECTOR, CINDY 311 MO DEPRESSIVE DISORDER NOS 10/21/2007 SOFIA SANTIAGO PHD 300.00 AN ANXIETY UNSPEC 10/21/2007 SOFIA SANTIAGO PHD 311 MO DEPRESSIVE DISORDER NOS 10/21/2007 SOFIA SANTIAGO PHD 300.00 AN ANXIETY UNSPEC 10/21/2007 SOFIA SANTIAGO PHD 311 MO DEPRESSIVE DISORDER NOS 10/21/2007 SOFIA SANTIAGO PHD 300.00 AN ANXIETY UNSPEC 10/21/2007 SOFIA SANTIAGO PHD 311 MO DEPRESSIVE DISORDER NOS 10/21/2007 AVELINO EDUCATIONAL FUNDRAISING DIRECTOR, CINDY 300.00 AN ANXIETY UNSPEC 10/21/2007 AVELINO EDUCATIONAL FUNDRAISING DIRECTOR, CINDY 311 MO DEPRESSIVE DISORDER NOS 10/21/2007 AVELINO EDUCATIONAL FUNDRAISING DIRECTOR, CINDY 300.00 AN ANXIETY UNSPEC 10/21/2007 AVELINO EDUCATIONAL FUNDRAISING DIRECTOR, CINDY 311 MO DEPRESSIVE DISORDER NOS 10/21/2007 SOFIA SANTIAGO PHD 300.00 AN ANXIETY UNSPEC 10/21/2007 SOFIA SANTIAGO PHD 311 MO DEPRESSIVE DISORDER NOS 10/21/2007 SOFIA SANTIAGO PHD 300.00 AN ANXIETY UNSPEC 10/21/2007 SOFIA SANTIAGO PHD 311 MO DEPRESSIVE DISORDER NOS 03/30/2008 SOFIA SANTIAGO PHD 304.80 SA POLYSUB DEP 03/30/2008 SOFIA SANTIAGO PHD V69.8 OTHER PROBLEMS RELATED TO LIFESTYLE 03/30/2008 CHIARA RODRIGUEZ MD 304.80 SA POLYSUB DEP 03/30/2008 CHIARA RODRIGUEZ MD V69.8 OTHER PROBLEMS RELATED TO LIFESTYLE 03/30/2008 SOFIA SANTIAGO PHD 304.80 SA POLYSUB DEP 03/30/2008 SOFIA SANTIAGO PHD V69.8 OTHER PROBLEMS RELATED TO LIFESTYLE 03/30/2008 SOFIA SANTIAGO PHD 304.80 SA POLYSUB DEP 03/30/2008 SOFIA SANTIAGO PHD V69.8 OTHER PROBLEMS RELATED TO LIFESTYLE 03/30/2008 CHIARA RODRIGUEZ MD 304.80 SA POLYSUB DEP 03/30/2008 CHIARA RODRIGUEZ MD V69.8 OTHER PROBLEMS RELATED TO LIFESTYLE 03/30/2008 MAGO GIL JR 304.80 SA POLYSUB DEP 03/30/2008 MAGO GIL JR V69.8 OTHER PROBLEMS RELATED TO LIFESTYLE 03/30/2008 SOFIA SANTIAGO PHD 304.80 SA POLYSUB DEP 03/30/2008 SOFIA SANTIAGO PHD V69.8 OTHER PROBLEMS RELATED TO LIFESTYLE 03/30/2008 JASON STALEY APRN 304.80 SA POLYSUB DEP 03/30/2008 JASON STALEY APRN V69.8 OTHER PROBLEMS RELATED TO LIFESTYLE 03/30/2008 JASON STALEY APRN 304.80 SA POLYSUB DEP 03/30/2008 JASON STALEY APRN V69.8 OTHER PROBLEMS RELATED TO LIFESTYLE 03/30/2008 JASON STALEY APRN 304.80 SA POLYSUB DEP 03/30/2008 JASON STALEY APRN V69.8 OTHER PROBLEMS RELATED TO LIFESTYLE 03/30/2008 SOFIA SANTIAGO PHD 304.80 SA POLYSUB DEP 03/30/2008 SOFIA SANTIAGO PHD V69.8 OTHER PROBLEMS RELATED TO LIFESTYLE 03/30/2008 CHIARA RODRIGUEZ MD 304.80 SA POLYSUB DEP 03/30/2008 CHIARA RODRIGUEZ MD V69.8 OTHER PROBLEMS RELATED TO LIFESTYLE 03/30/2008 SOFIA SANTIAGO PHD 304.80 SA POLYSUB DEP 03/30/2008 SOFIA SANTIAGO PHD V69.8 OTHER PROBLEMS RELATED TO LIFESTYLE 03/30/2008 SOFIA SANTIAGO PHD 304.80 SA POLYSUB DEP 03/30/2008 SOFIA SANTIAGO PHD V69.8 OTHER PROBLEMS RELATED TO LIFESTYLE 03/30/2008 CINDY YOU APRN 304.80 SA POLYSUB DEP 03/30/2008 CINDY YOU APRN V69.8 OTHER PROBLEMS RELATED TO LIFESTYLE 03/30/2008 SOFIA SANTIAGO PHD 304.80 SA POLYSUB DEP 03/30/2008 SOFIA SANTIAGO PHD V69.8 OTHER PROBLEMS RELATED TO LIFESTYLE 03/30/2008 SOFIA SANTIAGO PHD 304.80 SA POLYSUB DEP 03/30/2008 SOFIA SANTIAGO PHD V69.8 OTHER PROBLEMS RELATED TO LIFESTYLE 03/30/2008 SOFIA SANTIAGO PHD 304.80 SA POLYSUB DEP 03/30/2008 SOFIA SANTIAGO PHD V69.8 OTHER PROBLEMS RELATED TO LIFESTYLE 03/30/2008 AVELINO CHANDRA CINDY 304.80 SA POLYSUB DEP 03/30/2008 AVELINO EDUCATIONAL FUNDRAISING DIRECTOR, CINDY V69.8 OTHER PROBLEMS RELATED TO LIFESTYLE 03/30/2008 AVELINO EDUCATIONAL FUNDRAISING DIRECTOR, CINDY 304.80 SA POLYSUB DEP 03/30/2008 AVELINO EDUCATIONAL FUNDRAISING DIRECTOR, CINDY V69.8 OTHER PROBLEMS RELATED TO LIFESTYLE 03/30/2008 SOFIA SANTIAGO PHD 304.80 SA POLYSUB DEP 03/30/2008 SOFIA SANTIAGO PHD V69.8 OTHER PROBLEMS RELATED TO LIFESTYLE 03/30/2008 SOFIA SANTIAGO PHD 304.80 SA POLYSUB DEP 03/30/2008 SOFIA SANTIAGO PHD V69.8 OTHER PROBLEMS RELATED TO LIFESTYLE 04/19/2008 SOFIA SANTIAGO PHD 296.90 UNSPECIFIED EPISODIC MOOD DISORDER 04/19/2008 CHIARA RODRIGUEZ MD 296.90 UNSPECIFIED EPISODIC MOOD DISORDER 04/19/2008 SOFIA SANTIAGO PHD 296.90 UNSPECIFIED EPISODIC MOOD DISORDER 04/19/2008 SOFIA SANTIAGO PHD 296.90 UNSPECIFIED EPISODIC MOOD DISORDER 04/19/2008 CHIARA RODRIGUEZ MD 296.90 UNSPECIFIED EPISODIC MOOD DISORDER 04/19/2008 MAGO GIL JR 296.90 UNSPECIFIED EPISODIC MOOD DISORDER 04/19/2008 SOFIA SANTIAGO PHD 296.90 UNSPECIFIED EPISODIC MOOD DISORDER 04/19/2008 JASON STALEY APRN 296.90 UNSPECIFIED EPISODIC MOOD DISORDER 04/19/2008 JASON STALEY APRN 296.90 UNSPECIFIED EPISODIC MOOD DISORDER 04/19/2008 JASON STALEY APRN 296.90 UNSPECIFIED EPISODIC MOOD DISORDER 04/19/2008 SOFIA SANTIAGO PHD 296.90 UNSPECIFIED EPISODIC MOOD DISORDER 04/19/2008 CHIARA RODRIGUEZ MD 296.90 UNSPECIFIED EPISODIC MOOD DISORDER 04/19/2008 SOFIA SANTIAGO PHD 296.90 UNSPECIFIED EPISODIC MOOD DISORDER 04/19/2008 SOFIA SANTIAGO PHD 296.90 UNSPECIFIED EPISODIC MOOD DISORDER 04/19/2008 CINDY YOU APRN 296.90 UNSPECIFIED EPISODIC MOOD DISORDER 04/19/2008 SOFIA SANTIAGO PHD 296.90 UNSPECIFIED EPISODIC MOOD DISORDER 04/19/2008 SOFIA SANTIAGO PHD 296.90 UNSPECIFIED EPISODIC MOOD DISORDER 04/19/2008 SOFIA SANTIAGO PHD 296.90 UNSPECIFIED EPISODIC MOOD DISORDER 04/19/2008 AVELINO CHANDRA, CINDY 296.90 UNSPECIFIED EPISODIC MOOD DISORDER 04/19/2008 ASAD YOU APRNETTE 296.90 UNSPECIFIED EPISODIC MOOD DISORDER 04/19/2008 PAMELA KUO, SOFIA Blanton 296.90 UNSPECIFIED EPISODIC MOOD DISORDER 04/19/2008 PAMELA KUO, SOFIA Blanton 296.90 UNSPECIFIED EPISODIC MOOD DISORDER 07/14/2008 PAMELA KUO, SOFIA Blanton 305.60 SA COCAINE ABUSE 07/14/2008 CHIARA RODRIGUEZ MD 305.60 SA COCAINE ABUSE 07/14/2008 PAMELA KUO, SOFIA Blanton 305.60 SA COCAINE ABUSE 07/14/2008 PAMELA KUO, SOFIA Blanton 305.60 SA COCAINE ABUSE 07/14/2008 CHIARA RODRIGUEZ MD 305.60 SA COCAINE ABUSE 07/14/2008 MAGO GIL JR 305.60 SA COCAINE ABUSE 07/14/2008 PAMELA KUO, SOFIA Blanton 305.60 SA COCAINE ABUSE 07/14/2008 JASON STALEY APRN 305.60 SA COCAINE ABUSE 07/14/2008 JASON STALEY APRN 305.60 SA COCAINE ABUSE 07/14/2008 JASON STALEY APRN 305.60 SA COCAINE ABUSE 07/14/2008 PAMELA KUO, SOFIA Blanton 305.60 SA COCAINE ABUSE 07/14/2008 CHIARA RODRIGUEZ MD 305.60 SA COCAINE ABUSE 07/14/2008 PAMELA KUO, SOFIA Blanton 305.60 SA COCAINE ABUSE 07/14/2008 PAMELA KUO, SOFIA Blanton 305.60 SA COCAINE ABUSE 07/14/2008 CINDY YOU APRN 305.60 SA COCAINE ABUSE 07/14/2008 SOFIA SANTIAGO PHD 305.60 SA COCAINE ABUSE 07/14/2008 PAMELA KUO, SOFIA Blanton 305.60 SA COCAINE ABUSE 07/14/2008 PAMELA KUO, SOFIA Blanton 305.60 SA COCAINE ABUSE 07/14/2008 AVELINO CHANDRA CINDY 305.60 SA COCAINE ABUSE 07/14/2008 ASAD YOU APRNETTE 305.60 SA COCAINE ABUSE 07/14/2008 PAMELA KUO, SOFIA Blanton 305.60 SA COCAINE ABUSE 07/14/2008 PAMELA KUO, SOFIA Blanton 305.60 SA COCAINE ABUSE 01/23/2009 SOFIA SANTIAGO PHD 305.70 SA AMPHETA ABUSE 01/23/2009 CHIARA RODRIGUEZ MD 305.70 SA AMPHETA ABUSE 01/23/2009 PAMELA PHD, SOFIA Blanton 305.70 SA AMPHETA ABUSE 01/23/2009 PAMELA PHD, SOFIA Blanton 305.70 SA AMPHETA ABUSE 01/23/2009 CHIARA RODRIGUEZ MD 305.70 SA AMPHETA ABUSE 01/23/2009 MAGO GIL JR 305.70 SA AMPHETA ABUSE 01/23/2009 PAMELA KUO, SOFIA Blanton 305.70 SA AMPHETA ABUSE 01/23/2009 JASON STALEY APRN 305.70 SA AMPHETA ABUSE 01/23/2009 JASON STALEY APRN 305.70 SA AMPHETA ABUSE 01/23/2009 JASON STALEY APRN 305.70 SA AMPHETA ABUSE 01/23/2009 PAMELA KUO, SOFIA Blanton 305.70 SA AMPHETA ABUSE 01/23/2009 CHIARA RODRIGUEZ MD 305.70 SA AMPHETA ABUSE 01/23/2009 PAMELA KUO, SOFIA Blanton 305.70 SA AMPHETA ABUSE 01/23/2009 PAMELA KOU, SOFIA Blanton 305.70 SA AMPHETA ABUSE 01/23/2009 AVELINO CHANDRA CINDY 305.70 SA AMPHETA ABUSE 01/23/2009 PAMELA KUO, SOFIA Blanton 305.70 SA AMPHETA ABUSE 01/23/2009 PAMELA KUO, SOFIA Blanton 305.70 SA AMPHETA ABUSE 01/23/2009 PAMELA KUO, SOFIA Blanton 305.70 SA AMPHETA ABUSE 01/23/2009 AVELINO CHANDRA CINDY 305.70 SA AMPHETA ABUSE 01/23/2009 AVELINO CHANDRA CINDY 305.70 SA AMPHETA ABUSE 01/23/2009 PAMELA KUO, SOFIA Blanton 305.70 SA AMPHETA ABUSE 01/23/2009 PAMELA KUO, SOFIA Blanton 305.70 SA AMPHETA ABUSE 08/09/2010 PAMELA PHD, SOFIA Blanton 309.0 AD ADJ D/O W DEPRESSED 08/09/2010 CHIARA RODRIGUEZ MD 309.0 AD ADJ D/O W DEPRESSED 08/09/2010 PAMELA KUO, SOFIA Blanton 309.0 AD ADJ D/O W DEPRESSED 08/09/2010 PAMELA KUO, SOFIA Blanton 309.0 AD ADJ D/O W DEPRESSED 08/09/2010 CHIARA RODRIGUEZ MD 309.0 AD ADJ D/O W DEPRESSED 08/09/2010 GIL JR, MAGO S 309.0 AD ADJ D/O W DEPRESSED 08/09/2010 PAMELA KUO, SOFIA Blanton 309.0 AD ADJ D/O W DEPRESSED 08/09/2010 JASON STALEY APRN 309.0 AD ADJ D/O W DEPRESSED 08/09/2010 JASON STALEY APRN 309.0 AD ADJ D/O W DEPRESSED 08/09/2010 JASON STALEY APRN 309.0 AD ADJ D/O W DEPRESSED 08/09/2010 SOFIA SANTIAGO PHD 309.0 AD ADJ D/O W DEPRESSED 08/09/2010 CHIARA RODRIGUEZ MD 309.0 AD ADJ D/O W DEPRESSED 08/09/2010 PAMELA KUO, SOFIA Blanton 309.0 AD ADJ D/O W DEPRESSED 08/09/2010 PAMELA KUO, SOFIA Blanton 309.0 AD ADJ D/O W DEPRESSED 08/09/2010 CINDY YOU APRN 309.0 AD ADJ D/O W DEPRESSED 08/09/2010 PAMELA KUO, SOFIA Blanton 309.0 AD ADJ D/O W DEPRESSED 08/09/2010 PAMELA KUO, SOFIA Blanton 309.0 AD ADJ D/O W DEPRESSED 08/09/2010 PAMELA KUO, SOFIA Blanton 309.0 AD ADJ D/O W DEPRESSED 08/09/2010 CINDY YOU APRN 309.0 AD ADJ D/O W DEPRESSED 08/09/2010 CINDY YOU APRN 309.0 AD ADJ D/O W DEPRESSED 08/09/2010 PAMELA KUO, SOFIA Blanton 309.0 AD ADJ D/O W DEPRESSED 08/09/2010 PAMELA KUO, SOFIA Blanton 309.0 AD ADJ D/O W DEPRESSED 10/12/2010 PAMELA KUO, SOFIA Blanton V58.69 MEDICATION HIGH RISK 10/12/2010 CHIARA RODRIGUEZ MD V58.69 MEDICATION HIGH RISK 10/12/2010 PAMELA KUO, SOFIA Blanton V58.69 MEDICATION HIGH RISK 10/12/2010 PAMELA KUO, SOFIA Blanton V58.69 MEDICATION HIGH RISK 10/12/2010 CHIARA RODRIGUEZ MD V58.69 MEDICATION HIGH RISK 10/12/2010 MAGO GIL JR V58.69 MEDICATION HIGH RISK 10/12/2010 PAMELA KUO, SOFIA Blanton V58.69 MEDICATION HIGH RISK 10/12/2010 JASON STALEY APRN V58.69 MEDICATION HIGH RISK 10/12/2010 REBEKA CHANDRA, JASON Blanton V58.69 MEDICATION HIGH RISK 10/12/2010 JASON STALEY APRN V58.69 MEDICATION HIGH RISK 10/12/2010 PAMELA KUO, SOFIA Blanton V58.69 MEDICATION HIGH RISK 10/12/2010 CHIARA RODRIGUEZ MD V58.69 MEDICATION HIGH RISK 10/12/2010 PAEMLA KUO, SOFIA Blanton V58.69 MEDICATION HIGH RISK 10/12/2010 PAMELA KUO, SOFIA Blanton V58.69 MEDICATION HIGH RISK 10/12/2010 AVELINO EDUCATIONAL FUNDRAISING DIRECTOR, CINDY V58.69 MEDICATION HIGH RISK 10/12/2010 PAMELA PHD, SOFIA Blanton V58.69 MEDICATION HIGH RISK 10/12/2010 PAMELA KUO, SOFIA Blanton V58.69 MEDICATION HIGH RISK 10/12/2010 PAMELA KUO, SOFIA Blanton V58.69 MEDICATION HIGH RISK 10/12/2010 AVELINO EDUCATIONAL FUNDRAISING DIRECTOR, CINDY V58.69 MEDICATION HIGH RISK 10/12/2010 CINDY YOU APRN V58.69 MEDICATION HIGH RISK 10/12/2010 PAMELA KUO, SOFIA Blanton V58.69 MEDICATION HIGH RISK 10/12/2010 PAMELA KUO, SOFIA Blanton V58.69 MEDICATION HIGH RISK 12/05/2011 Ot 891.0 12/05/2011 Ot E000.8 12/05/2011 Ot E849.0 12/05/2011 Ot E880.9 12/05/2011 Ot V06.1 12/15/2011 Ot 682.2 12/15/2011 Ot V58.32 12/17/2011 Ot V58.31 03/19/2013 PAMELA KUO, SOFIA Blanton 053.9 HERPES ZOSTER (SHINGLES) 03/19/2013 CHIARA RODRIGUEZ MD 053.9 HERPES ZOSTER (SHINGLES) 03/19/2013 MAGO GIL JR 053.9 HERPES ZOSTER (SHINGLES) 03/19/2013 SOFIA SANTIAGO PHD 053.9 HERPES ZOSTER (SHINGLES) 03/19/2013 JASON STALEY APRN 053.9 HERPES ZOSTER (SHINGLES) 03/19/2013 JASON STALEY APRN 053.9 HERPES ZOSTER (SHINGLES) 03/19/2013 JASON STALEY APRN 053.9 HERPES ZOSTER (SHINGLES) 03/19/2013 SOFIA SANTIAGO PHD 053.9 HERPES ZOSTER (SHINGLES) 03/19/2013 CHIARA RODRIGUEZ MD 053.9 HERPES ZOSTER (SHINGLES) 03/19/2013 SOFIA SANTIAGO PHD 053.9 HERPES ZOSTER (SHINGLES) 03/19/2013 SOFIA SANTIAGO PHD 053.9 HERPES ZOSTER (SHINGLES) 03/19/2013 AVELINO EDUCATIONAL FUNDRAISING DIRECTOR, CINDY 053.9 HERPES ZOSTER (SHINGLES) 03/19/2013 SOFIA SANTIAGO PHD 053.9 HERPES ZOSTER (SHINGLES) 03/19/2013 SOFIA SANTIAGO PHD 053.9 HERPES ZOSTER (SHINGLES) 03/19/2013 SOFIA SANTIAGO PHD 053.9 HERPES ZOSTER (SHINGLES) 03/19/2013 AVELINO EDUCATIONAL FUNDRAISING DIRECTOR, CINDY 053.9 HERPES ZOSTER (SHINGLES) 03/19/2013 AVELINO EDUCATIONAL FUNDRAISING DIRECTOR, CINDY 053.9 HERPES ZOSTER (SHINGLES) 03/19/2013 SOFIA SANTIAGO PHD 053.9 HERPES ZOSTER (SHINGLES) 03/19/2013 SOFIA SANTIAGO PHD 053.9 HERPES ZOSTER (SHINGLES) 08/27/2013 SOFIA SANTIAGO PHD 401.1 BENIGN ESSENTIAL HYPERTENSION 08/27/2013 SOFIA SANTIAGO PHD 401.1 BENIGN ESSENTIAL HYPERTENSION 08/27/2013 CINDY YOU APRN 401.1 BENIGN ESSENTIAL HYPERTENSION 08/27/2013 SOFIA SANTIAGO PHD 401.1 BENIGN ESSENTIAL HYPERTENSION 08/27/2013 SOFIA SANTIAGO PHD 401.1 BENIGN ESSENTIAL HYPERTENSION 08/27/2013 SOFIA SANTIAGO PHD 401.1 BENIGN ESSENTIAL HYPERTENSION 08/27/2013 AVELINO CHANDRA CINDY 401.1 BENIGN ESSENTIAL HYPERTENSION 08/27/2013 AVELINO CHANDRA CINDY 401.1 BENIGN ESSENTIAL HYPERTENSION 08/27/2013 SOFIA SANTIAGO PHD 401.1 BENIGN ESSENTIAL HYPERTENSION 08/27/2013 SOFIA SANTIAGO PHD 401.1 BENIGN ESSENTIAL HYPERTENSION 11/25/2013 RUFUS FELTON EDUCATIONAL FUNDRAISING DIRECTOR Ot 724.2 11/25/2013 RUFUS FELTON EDUCATIONAL FUNDRAISING DIRECTOR Ot 959.19 11/25/2013 RUFUS FELTON EDUCATIONAL FUNDRAISING DIRECTOR Ot E000.8 11/25/2013 RUFUS FELTON EDUCATIONAL FUNDRAISING DIRECTOR Ot E849.0 11/25/2013 RUFUS FELTON EDUCATIONAL FUNDRAISING DIRECTOR Ot E881.0 03/21/2014 BENIGNO AVILA MD Ot 729.5 03/21/2014 BENIGNO AVILA MD Ot 729.81 04/07/2014 EDMAR COTTRELL, MIRACLE Ot 552.1 05/04/2014 EDMAR COTTRLEL, MIRACLE Ot 553.1 05/04/2014 EDMAR COTTRELL, MIRACLE Ot V72.63 05/04/2014 EDMAR COTTRELL, MIRACLE Ot V74.8 10/28/2014 Ot 721.3 10/28/2014 Ot 959.19 10/28/2014 Ot 959.6 10/28/2014 Ot E000.8 10/28/2014 Ot E849.0 10/28/2014 Ot E885.9 10/28/2014 EDMAR COTTRELL, MIRACLE Ot 553.1 10/28/2014 EDMAR COTTRELL, MIRACLE Ot V72.63 10/28/2014 EDMAR COTTRELL, MIRACLE Ot V74.8 10/28/2014 BENIGNO AVILA MD Ot 729.5 10/28/2014 BENIGNO AVILA MD Ot 729.81 10/28/2014 SU MATHEW Ot 724.2 10/28/2014 SU MATHEW Ot 847.2 10/28/2014 SU MATHEW Ot E000.8 10/28/2014 SU MATHEW Ot E885.9 Procedures Code [place] [address] PSYCH DIAGNOSTIC EVALUATION 02/18/2013 99307 PSYCH DIAGNOSTIC EVALUATION 03/19/2013 50208 PSYTX PT&/FAMILY 45 MINUTES 04/09/2013 02358 PSYTX PT&/FAMILY 45 MINUTES 05/27/2013 36022 PSYTX PT&/FAMILY 45 MINUTES 06/29/2013 47244 PSYTX PT&/FAMILY 45 MINUTES 07/27/2013 97954 PSYTX PT&/FAMILY 45 MINUTES 08/27/2013 60163 PSYTX PT&/FAMILY 45 MINUTES 10/08/2013 31771 PSYTX PT&/FAMILY 30 MINUTES 11/19/2013 50086 PSYTX PT&/FAMILY 45 MINUTES 12/20/2013 12762 PSYTX PT&/FAMILY 30 MINUTES 02/14/2014 79205 PSYTX PT&/FAMILY 45 MINUTES 06/20/2014 25935 PSYTX PT&/FAMILY 30 MINUTES 07/25/2014 Results Test Result Range Lipid Panel - 01/10/16 08:34 Cholesterol, Total 148 mg/dL 100-199 Triglycerides 211 mg/dL 0-149 HDL Cholesterol 30 mg/dL >39 VLDL Cholesterol Christiano 42 mg/dL 5-40 LDL Cholesterol Calc 76 mg/dL 0-99 Comp. Metabolic Panel (14) - 07/24/16 09:35 Glucose, Serum 197 mg/dL 65-99 BUN 17 mg/dL 6-24 Creatinine, Serum 0.82 mg/dL 0.76-1.27 eGFR If NonAfricn Am 100 mL/min/1.73 >59 eGFR If Africn Am 115 mL/min/1.73 >59 BUN/Creatinine Ratio 21 9-20 Sodium, Serum 138 mmol/L 134-144 Potassium, Serum 4.3 mmol/L 3.5-5.2 Chloride, Serum 96 mmol/L 96-106 Carbon Dioxide, Total 25 mmol/L 18-29 Calcium, Serum 9.5 mg/dL 8.7-10.2 Protein, Total, Serum 6.7 g/dL 6.0-8.5 Albumin, Serum 4.3 g/dL 3.5-5.5 Globulin, Total 2.4 g/dL 1.5-4.5 A/G Ratio 1.8 1.2-2.2 Bilirubin, Total 0.5 mg/dL 0.0-1.2 Alkaline Phosphatase, S 79 IU/L 39-117 AST (SGOT) 26 IU/L 0-40 ALT (SGPT) 35 IU/L 0-44 Lipid Panel - 07/24/16 09:35 Cholesterol, Total 151 mg/dL 100-199 Triglycerides 307 mg/dL 0-149 HDL Cholesterol 30 mg/dL >39 VLDL Cholesterol Christiano 61 mg/dL 5-40 LDL Cholesterol Calc 60 mg/dL 0-99 Encounters ACCT No. Visit Date/Time Discharge Status Pt. Type Provider Facility Loc./Unit Complaint [id number] 07/25/2014 08:13:00 07/25/2014 23:59:59 LISS SANTIAGO PHD, SOFIA [place] [id number] 06/20/2014 08:01:00 06/20/2014 23:59:59 LISS Outpatient SOFIA SANTIAGO PHD [id number] 02/22/2014 08:55:00 02/22/2014 23:59:59 LISS Outpatient CINDY YOU APRN [id number] 02/22/2014 08:55:00 02/22/2014 23:59:59 [facility] Outpatient CINDY YOU APRN [id number] 02/14/2014 15:10:00 02/14/2014 23:59:59 LISS Outpatient SOFIA SANTIAGO PHD [id number] 12/20/2013 12:41:00 12/20/2013 23:59:59 L[facility] Outpatient SOFIA SANTIAGO PHD [id number] 11/19/2013 14:31:00 11/19/2013 23:59:59 L[facility] Outpatient SOFIA SANTIAGO PHD [id number] 10/21/2013 15:20:00 10/21/2013 23:59:59 CLS Outpatient CINDY YOU APRN [id number] 10/08/2013 15:00:00 10/08/2013 23:59:59 LISS Outpatient SOFIA SANTIAGO PHD [id number] 08/27/2013 15:59:00 08/27/2013 23:59:59 LISS Outpatient SOFIA SANTIAGO PHD [id number] 08/10/2013 09:53:00 08/10/2013 23:59:59 CLS Outpatient CHIARA RODRIGUEZ MD [id number] 07/27/2013 08:57:00 07/27/2013 23:59:59 LISS Outpatient SOFIA SANTIAGO PHD [id number] 07/13/2013 10:41:00 07/13/2013 23:59:59 CLS Outpatient JASON STALEY APRN [id number] 06/25/2013 09:36:00 06/25/2013 23:59:59 CLS Outpatient JASON STALEY APRN [id number] 06/25/2013 09:36:00 06/25/2013 23:59:59 CLS Outpatient JASON STALEY APRN [id number] 05/27/2013 08:03:00 05/27/2013 23:59:59 LISS Outpatient SOFIA SANTIAGO PHD [id number] 04/29/2013 08:07:00 04/29/2013 23:59:59 CLS Outpatient MAGO GIL JR [id number] 04/29/2013 08:07:00 04/29/2013 23:59:59 CLS Outpatient CHIARA RODRIGUEZ MD [id number] 04/09/2013 08:03:00 04/09/2013 23:59:59 CLS Outpatient SOFIA SANTIAGO PHD [id number] 03/19/2013 07:58:00 03/19/2013 23:59:59 CLS Outpatient SOFIA SANTIAGO PHD [id number] 03/12/2013 13:51:00 03/12/2013 23:59:59 CLS Outpatient CHIARA RODRIGUEZ MD [id number] 02/18/2013 07:42:00 02/18/2013 23:59:59 CLS Outpatient SOFIA SANTIAGO PHD [id number] 10/28/2014 12:42:00 10/28/2014 14:56:00 DIS Emergency SU MATHEW [facility] ER [id number] 04/07/2014 06:05:00 04/07/2014 13:15:00 DIS Outpatient MIRACLE HYATT MD [facility] [id number] 04/04/2014 08:55:00 04/04/2014 23:59:59 CLS Outpatient MIRACLE HYATT MD [facility] PREOP [id number] 02/23/2014 10:23:00 02/23/2014 23:59:59 CLS Outpatient BENIGNO AVILA MD [facility] RAD [id number] 11/25/2013 13:47:00 11/25/2013 17:00:00 DIS Emergency RUFUS FELTON APRN [facility] [id number] 12/17/2011 06:35:00 Document Registration [id number] 12/15/2011 13:50:00 Document Registration [id number] 12/05/2011 06:29:00 Document Registration [id number] 10/21/2011 12:21:00 Document Registration [id number] 07/25/2016 08:46:00 Document Registration [id number] 07/31/2017 10:00:00 07/31/2017 23:59:59 CLS Outpatient CHIARA RODRIGUEZ MD [facility] [id number] 01/11/2016 08:07:00 Document Registration [id number] 10/29/2014 04:34:30 ACT Document Registration
[2017-08-06] MEDS ORDERED: LURA80TA3 PO (10:51)
[2017-08-06] MEDS ORDERED: ATOR40TA PO (10:53)
[2017-08-06] MEDS ORDERED: CANA1TAB6 PO (10:53)
[2017-08-06] MEDS ORDERED: LISI10TA2 PO (10:55)
[2017-08-06] MEDS ORDERED: LAMO25TA4 PO (10:55)
--- NOTE | 2017-08-06 12:18 | ED General ---
General Chief Complaint: Glucose Problems Stated Complaint: BLOOD SUGAR HIGH Nursing Triage Note: TO ROOM C/O BLOOD SUGAR BEING 400 IS NOT ON ANY MEDS HAS JUST BEEN WATCHING. HAS GOT A STEROID IM JULY 24 WITH BLURRY VISION. SAW EYE DR WENT BACK TO [facility] WITH HIGH BLOOD SUGAR WAS TOLD THEY COULD NOT DO ANYTHING AND NEEDED TO COME TO ER IF IT CON'T TO STAY HIGH. HERE ONLY BECAUSE HAS MEETING WITH HIS AURICULAR THERAPIST WHO TOLD HIM HE NEEDED TO COME TO ER. Nursing Sepsis Screen: No Definite Risk Source of Information: Patient Exam Limitations: No Limitations History of Present Illness Date Seen by Provider: August 06, 2017 Time Seen by Provider: 11:50 Initial Comments 56-year-old male patient presents to the emergency department with complaints of blood sugars ranging in the 400s. Patient was given a shot of steroid on July 24 at [facility] for allergic rhinitis. Reports blood sugars increase to 520. Patient was seen by his eye doctor due to blurry vision and was told that his blood sugars were elevated. States he normally is controlled with oral medication. Checks his blood sugars twice weekly. Today was seen by his human resource officer who told him to go to the ER to be evaluated. Timing/Duration: 1 Week Modifying Factors: worse with Medication (increased blood sugar secondary to the steroid injection) Allergies and Home Medications Allergies Coded Allergies: No Known Drug Allergies (Unverified , 12/05/11) Home Medications Lisinopril 10 Mg Tablet, 10 MG PO DAILY, (Reported) Patient Home Medication List Home Medication List Reviewed: Yes Review of Systems Constitutional: No chills, No diaphoresis, No dizziness, No fever, No malaise, No weakness EENTM: see HPI; No blurred vision (previous blurry vision. Reports symptoms have resolved.), No nose congestion, No throat pain Respiratory: No cough, No dyspnea on exertion, No short of breath Cardiovascular: No chest pain; edema (chronic lower extremity edema); No palpitations, No syncope Gastrointestinal: No abdominal pain, No constipation, No diarrhea, No dysphagia , No loss of appetite, No melena, No nausea, No vomiting Genitourinary: no symptoms reported Musculoskeletal: no symptoms reported Skin: no symptoms reported Psychiatric/Neurological: Denies Headache, Denies Numbness, Denies Paresthesia , Denies Seizure, Denies Tingling, Denies Weakness; Other (polydipsia, polyuria , polyphagia, and nocturia (improving)) All Other Systems Reviewed Negative Unless Noted: Yes (Negative excepted noted.) Past Zpvarfb-Nrmiqt-Huzxkk Hx Patient Social History Alcohol Use: Denies Use Recreational Drug Use: No (HX SELF MEDICATION- CLEAN 3 YEARS- BIPOLAR) Smoking Status: Never a Smoker Recent Foreign Travel: No Contact w/Someone Who Travel: No Recent Infectious Disease Expo: No Past Medical History Surgeries: Yes (HERNIA, ORTHO SURG) Respiratory: Yes Cardiac: Yes (chronic LE edema and venous stasis changes) Hypertension Neurological: No Gastrointestinal: Yes (UMBILICAL HERNIA) Musculoskeletal: Yes Chronic Back Pain Endocrine: Yes Diabetes, Non-Insulin dep (type 2) HEENT: No Cancer: No Psychosocial: Yes Bipolar, Schizophrenia Integumentary: Yes (chronic venous stasis changes of the BLE.) Family Medical History Reviewed and Corrections made Colon cancer Diabetes mellitus FHx: bipolar disorder FHx: cardiovascular disease No Pertinent Family Hx, Heart Disease, Cancer (colon cancer), CVA, Diabetes, Psychiatric Problems Physical Exam Vital Signs Vital Signs - First Documented 08/06/17 10:20 Temp 98.0 Pulse 108 Resp 18 B/P (MAP) 154/104 (121) Pulse Ox 98 O2 Delivery Room Air Capillary Refill : Less Than 3 Seconds General Appearance: No Apparent Distress, WD/WN, Obese HEENT: PERRL/EOMI, Pharynx Normal Neck: Normal Inspection, Non Tender, Supple Respiratory: Lungs Clear, Normal Breath Sounds, No Accessory Muscle Use, No Respiratory Distress Cardiovascular: Regular Rate, Rhythm, No Murmur Gastrointestinal: Normal Bowel Sounds, Non Tender, Soft Back: Normal Inspection Extremity: Normal Capillary Refill, No Calf Tenderness, Pedal Edema (2+ pedal edema of the BLE with venous stasis changes of the distal legs.) Neurologic/Psychiatric: Alert, Oriented x3, No Motor/Sensory Deficits, Normal 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, 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 as Tested Skin: Normal Color, Warm/Dry, Other (BLE with venous stasis changes of the distal legs.) Progress/Results/Core Measures Suspected Sepsis Recent Fever Within 48 Hours: No Infection Criteria Present: None New/Unexplained Altered Menta: No Sepsis Screen: No Definite Risk SIRS Temperature:98.0 Pulse: 108 Respiratory Rate: 18 Blood Pressure 154 /104 Mean: 121 Results/Orders Lab Results Laboratory Tests Test 08/06/17 10:33 Range/Units Glucometer 328 H 70-110 MG/DL Vital Signs/I&O 08/06/17 12:23 Pulse 100 Resp 18 B/P (MAP) 142/80 Pulse Ox 98 O2 Delivery Room Air Capillary Refill : Less Than 3 Seconds Blood Pressure Mean: 121 Departure Communication (Admissions) patient refuses insulin, labs, or IVF. [facility] contacted. [facility] staff reports patient received Depo-Medrol and dexamethasone on July 24 for allergic rhinitis. I have discussed risks, benefits, and possible complications associated with not performing labs or giving insulin and IV fluids. Patient verbalizes understanding and continues to refuse any further evaluation or management in the emergency department. Patient states his sugars have been improving and would like to continue using his current medications and diet. Patient will follow-up with his PCP on August 18 for recheck as previously scheduled. Patient's refusal of labs and medications discussed with Miguel Aguilera MD.. Impression Primary Impression: Steroid-induced hyperglycemia Additional Impression: Diabetes mellitus, type 2 Qualified Codes: E11.8 - Type 2 diabetes mellitus with unspecified complications Disposition: HOME, SELF-CARE Condition: Improved Departure-Patient Inst. Decision time for Depature: 12:14 Referrals: CHIARA RODRIGUEZ MD, JOHN D MD (PCP/Family) Primary Care Physician Patient Instructions: Diabetes Diet , Diabetes Exchange Diet, Diabetes Type 2 ( DC), Diabetic Meal Planning Add. Discharge Instructions: All discharge instructions reviewed with patient and/or family. Voiced understanding. Continue current medications. Continue to monitor your blood sugars closely. Drink plenty of fluids including 64 oz of water per day. Follow-up with Dr. Rodriguez on August 18 at 9:00 AM as previously scheduled for recheck. Contact his office for a sooner appointment if needed. Return to the emergency department for worsened symptoms or any other concerns. Work/School Note: Work Release Form Date Seen in the Emergency Department: August 06, 2017 Return to Work: August 06, 2017 [employer] August 06, 2017 12:18
[2017-08-06 12:23] VITALS: BP 142/80
== END 2017-08-06 12:26 | disposition home or self-care (01) ==
LOC: EDUNIT# 10:16 → ER 10:19
DX: E09.65 Drug or chemical induced diabetes mellitus with hyperglycemia (principal); F31.9 Bipolar disorder, unspecified; F20.9 Schizophrenia, unspecified; I10 Essential (primary) hypertension; Z98.890 Other specified postprocedural states; Z87.19 Personal history of other diseases of the digestive system; Z80.0 Family history of malignant neoplasm of digestive organs
CPT/HCPCS: 82962; 99281

== ENCOUNTER 2018-07-21 09:47 | Outpatient (RCR) | payer MEDICARE ==
[~2018-07-21 09:47] MED LIST changes: +ATOR40TA PO; +CANA1TAB6 PO; +FURO20TA4 PO; +INSU100I14 SQ; +INSU100I29 SQ; +LAMO25TA4 PO; +LISI-556 PO; +LISI10TA2 PO; +LURA80TA3 PO; +METO50TA15 PO; +POTA10CA43 PO; +POTA10TA10 PO; +RANI150T46 PO; +SIMV20TA3 PO; +SITA1TBM4 PO; +SULF-222; +SULF1TAB35 PO
[2018-09-23] MEDS ORDERED: AMOX-358 PO (20:53)
== END 2018-10-19 | disposition home or self-care (01) ==
LOC: DSME 09:47
PROVIDERS: ATTEND Physician Assistant
DX: E11.65 Type 2 diabetes mellitus with hyperglycemia (principal); I10 Essential (primary) hypertension; E66.9 Obesity, unspecified

== ENCOUNTER 2018-09-23 20:38 | Emergency (ER) | payer MEDICARE ==
[~2018-09-23] VITALS: Ht 180.3 cm; Wt 124.7 kg
[2018-09-23] MEDS ORDERED: AMOX-358 PO (20:53)
--- NOTE | 2018-09-23 20:53 | ED Integumentary General ---
General Chief Complaint: Skin/Wound Problems Stated Complaint: R LEG BLEEDING Source: patient Exam Limitations: no limitations History of Present Illness Date Seen by Provider: Sep 23, 2018 Time Seen by Provider: 20:48 Initial Comments To ER with reports of right leg bleeding. This occurred just prior to arrival after he stepped on his cat. He is unsure whether the cat scratched him or bit him but either way he had a stream of blood shooting up the right side of his leg. Timing/Duration: just prior to arrival, constant Severity: mild Associated Symptoms: denies symptoms Allergies and Home Medications Allergies Coded Allergies: No Known Drug Allergies (Unverified , 12/05/11) Home Medications Furosemide 20 Mg Tablet, 20 MG PO DAILY, (Reported) Insulin Aspart 300 Units/3 Ml Solution, 5 UNITS SQ AC Prescribed by: SOCORRO WAGNER on 11/21/17825 Insulin Detemir 100 Unit/1 Ml Insuln.pen, 10 UNIT SQ HS Prescribed by: SOCORRO WAGNER on 11/21/17825 Lisinopril 5 Mg Tablet, 5 MG PO DAILY Prescribed by: SOCORRO WAGNER on 11/21/17825 Lurasidone HCl 80 Mg Tablet, 80 MG PO HS, (Reported) Metoprolol Tartrate 50 Mg Tablet, 50 MG PO BID, (Reported) Potassium Chloride 10 Meq Tablet.er, 10 MEQ PO DAILY, (Reported) Ranitidine HCl 150 Mg Tablet, 150 MG PO BID PRN for HEARTBURN, (Reported) Simvastatin 20 Mg Tablet, 20 MG PO HS, (Reported) Sulfamethoxazole/Trimethoprim 1 Each Tablet, 1 TAB PO BID, (Reported) 10 DAY SUPPLY FILLED 11-11-17 Patient Home Medication List Home Medication List Reviewed: Yes Review of Systems Review of Systems Constitutional: see HPI EENTM: see HPI Respiratory: no symptoms reported Cardiovascular: no symptoms reported Genitourinary: no symptoms reported Musculoskeletal: see HPI Skin: no symptoms reported Psychiatric/Neurological: No Symptoms Reported Endocrine: No Symptoms Reported Past Hgqjmok-Eovidd-Tahqkf Hx Patient Social History Alcohol Use: Denies Use Recreational Drug Use: No (HX SELF MEDICATION- CLEAN 3 YEARS- BIPOLAR) Smoking Status: Former Smoker Type Used: Pipe Recent Foreign Travel: No Contact w/Someone Who Travel: No Recent Hopitalizations: No Immunizations Up To Date Tetanus Booster (TDap): Unknown PED Vaccines UTD: Yes Seasonal Allergies Seasonal Allergies: No Past Medical History Surgeries: Yes (HERNIA, ORTHO SURG) Abdominal, Orthopedic Respiratory: Yes Cardiac: Yes (chronic LE edema and venous stasis changes) Hypertension Neurological: No Gastrointestinal: Yes (UMBILICAL HERNIA) Musculoskeletal: Yes Chronic Back Pain Endocrine: Yes Diabetes, Insulin dep HEENT: No Cancer: No Psychosocial: Yes Bipolar, Schizophrenia Integumentary: Yes (chronic venous stasis changes of the BLE.) Family Medical History Colon cancer Diabetes mellitus FHx: bipolar disorder FHx: cardiovascular disease No Pertinent Family Hx, Heart Disease, Cancer, CVA, Diabetes, Psychiatric Problems Physical Exam Vital Signs Capillary Refill : General Appearance: WD/WN, no apparent distress HEENT: PERRL/EOMI, normal ENT inspection Neck: non-tender Neurologic/Psychiatric: alert, normal mood/affect, oriented x 3 Skin: normal color, warm/dry Skin Problem Location: lower extremities Skin Problem Character: other (to the lateral aspect of the right side, lower leg there are 2 small punctate wounds without active bleeding, each of these overlies a varicose vein. He does have the thickened brown appearance to his skin consistent with venous stasis dermatitis bilaterally. He wrapped this with towel and electrical tape in route to the hospital very tightly which seems to have allowed for clotting.) Progress/Results/Core Measures Results/Orders My Orders Orders - RUFUS FELTON APRN, Pertuss(Acell),Tet Adult (Boostrix (09/23/18 21:00) Amoxicillin/Clavulanate Tablet (Augmenti (09/23/18 21:00) Departure Communication (Admissions) This area was rewrapped with gauze and an Pito bandage loosely, we will update his tetanus vaccine and provide Augmentin just in case this was a cat bite. Impression Primary Impression: Bleeding from varicose vein Additional Impression: Stasis dermatitis Qualified Codes: I87.2 - Venous insufficiency (chronic) (peripheral) Disposition: 01 HOME, SELF-CARE Condition: Stable Departure-Patient Inst. Decision time for Depature: 20:51 Referrals: BENIGNO AVILA MD (PCP/Family) Primary Care Physician Patient Instructions: Varicose Veins (DC) Add. Discharge Instructions: 1. Return to ER for any redness or swelling that may suggest infection. Take antibiotics as directed starting tomorrow morning twice daily for 5 days. All discharge instructions reviewed with patient and/or family. Voiced understanding. Scripts Amoxicillin/Potassium Clav (Augmentin 885-125 Tablet) 1 Each Tablet 1 EACH PO BID, #14 TAB 0 Refills Prov: RUFUS FELTON APRN 09/23/18 RUFUS FELTON APRN Sep 23, 2018 20:53
[2018-09-23] MEDS ORDERED: AUGMENTIN 875 MG TAB (AMOXICILLIN/CLAVULANATE) PO SCH (21:00)
[2018-09-23] MEDS ORDERED: TETANUS,DIPTH,PERTUSS P/F (BOOSTRIX) 0.5 ML VIAL IM ONE (21:00)
[2018-09-23 21:06] VITALS: BP 125/70
== END 2018-09-23 21:06 | disposition home or self-care (01) ==
LOC: EDUNIT# 20:38 → ER 20:39
DX: I83.11 Varicose veins of right lower extremity with inflammation (principal); I83.891 Varicose veins of right lower extremity with other complications; E11.9 Type 2 diabetes mellitus without complications; F20.9 Schizophrenia, unspecified; F31.9 Bipolar disorder, unspecified; I10 Essential (primary) hypertension; Z79.4 Long term (current) use of insulin; Z87.891 Personal history of nicotine dependence; Z98.890 Other specified postprocedural states; Z80.0 Family history of malignant neoplasm of digestive organs
CPT/HCPCS: 90471; 90715